=== PATIENT | female | born 1955 | race Caucasian/White ===

== ENCOUNTER → 2016-04-18 | Outpatient (CLI) | payer MEDICARE, OTHER ==
[2016-04-18 16:24] LABS: ALT 31 U/L (9-52); AST 26 U/L (14-36); Alkaline Phosphatase 90 U/L (38-126); Anion Gap 14 mmol/L; Blood Urea Nitrogen 11 mg/dL (7-17); Calcium 9.3 mg/dL (8.4-10.2); Carbon Dioxide 23 mmol/L (22-30); Chloride 103 mmol/L (98-107); Glucose 92 mg/dL (74-99); Non-African American GFR(MDRD) >60 (>60 ml/min/1.73 sqM); Potassium 3.8 mmol/L (3.5-5.1); Sodium 140 mmol/L (137-145); Total Bilirubin 0.4 mg/dL (0.2-1.3); Total Protein 6.8 g/dL (6.3-8.2)
== END | disposition home or self-care (01) ==
LOC: LABWHC1 15:20
PROVIDERS: ATTEND Internal Medicine Endocrinology, Diabetes & Metabolism
DX: E21.0 Primary hyperparathyroidism (principal)
CPT/HCPCS: 36415; 80053; 82306; 83970

== ENCOUNTER → 2016-05-17 | Outpatient (CLI) | payer MEDICARE, OTHER ==
--- NOTE | 2016-05-17 16:27 | XR ---
EXAMINATION TYPE: XR hand complete bilateral DATE OF EXAM: 05/17/2016 4:15 PM CLINICAL HISTORY: Bilateral hand pain TECHNIQUE: Frontal, lateral and oblique images of the bilateral hands are obtained. COMPARISON: None. FINDINGS: [place] osseous structures are demineralized. There is no acute fracture/dislocation eviden t in either hand. There is some mild joint space loss throughout the phalanges bilaterally. No signif icant spurring is seen. The overlying soft tissue appears unremarkable. IMPRESSION: There is demineralization and mild degenerative joint space loss throughout the fingers in both hands.
== END | disposition home or self-care (01) ==
LOC: RADXRMAIN 15:56
PROVIDERS: ATTEND Psychiatry & Neurology Psychiatry
DX: M81.0 Age-related osteoporosis without current pathological fracture (principal); M25.841 Other specified joint disorders, right hand; M25.842 Other specified joint disorders, left hand

== ENCOUNTER → 2016-05-19 | Outpatient (CLI) | payer MEDICARE, OTHER ==
[2016-05-19 13:58] LABS: CH 32.4; HCT 38.3 % (34.0-46.0); HDW 2.69; HGB 12.5 gm/dL (11.4-16.0); MCH 32.3 pg (25.0-35.0); MCHC 32.7 g/dL (31.0-37.0); MCV 98.8 fL (80.0-100.0); Mean Platelet Volume 6.5; RBC 3.88 m/uL (3.80-5.40); RDW 13.9 % (11.5-15.5); WBC 6.2 k/uL (3.8-10.6)
[2016-05-19 14:18] LABS: Anion Gap 12 mmol/L; Blood Urea Nitrogen 15 mg/dL (7-17); Calcium 9.8 mg/dL (8.4-10.2); Carbon Dioxide 24 mmol/L (22-30); Chloride 103 mmol/L (98-107); Glucose 98 mg/dL (74-99); Non-African American GFR(MDRD) 57 (>60 ml/min/1.73 sqM); Potassium 3.8 mmol/L (3.5-5.1); Sodium 139 mmol/L (137-145)
[2016-05-19 14:21] LABS: Rheumatoid Factor, Qnt <9 IU/mL (<12)
[2016-05-19 16:04] LABS: Erythrocyte Sedimentation Rate 5 mm/hr (0-20)
== END | disposition home or self-care (01) ==
LOC: LABWHC1 13:10
PROVIDERS: ATTEND Psychiatry & Neurology Psychiatry
DX: M81.0 Age-related osteoporosis without current pathological fracture (principal); E21.3 Hyperparathyroidism, unspecified; E87.8 Other disorders of electrolyte and fluid balance, not elsewhere classified
CPT/HCPCS: 36415; 80048; 85027; 85652; 86038; 86431

== ENCOUNTER 2016-07-23 15:29 | Observation (INO) | payer MEDICARE ==
[2016-07-23] MEDS ORDERED: SODIUM CHLORIDE 0.9% 1,000 ML IV ONE (15:52)
--- NOTE | 2016-07-23 16:00 | ED ---
General Adult HPI - General Chief complaint: Neuro Symptoms/Deficit Stated complaint: numbness left side Time Seen by Provider: 07/23/16 15:36 Source: patient Mode of arrival: wheelchair Limitations: physical limitation - History of Present Illness Initial comments: This is a 61-year-old female with a history of COPD and major depression with what appears to be alcohol dependence in the past who presents emergency department for generalized fatigue and tremors. The patient states that approximately 3 days ago she had an episode where her left leg gave out and she couldn't walk. She states that the weakness in her left leg progressed to her right leg and she was unable to ambulate for a couple of days. She states that this has improved and she can walk now however she complains now that she has generalized tremors and also feels like she is losing her balance when she is ambulating. She states that she did drink alcohol 3 days ago however has not drank since then. She denies any history of alcohol withdrawal in the past. She denies any chest pain or shortness of breath. No headaches. No numbness or tingling currently. She did state that she has some numbness a few days ago however this has also resolved. She called her primary doctor who advised her to come emergency department because she was concerned for TIAs and strokes. The patient denies any other complaints. - Related Data Home Medications Medication Instructions Recorded Confirmed Topiramate 50 mg PO DAILY 01/09/16 07/23/16 QUEtiapine FUMARATE [SEROquel] 300 mg PO HS 01/20/16 07/23/16 Furosemide [Lasix] 20 mg PO DAILY 01/22/16 07/23/16 ALPRAZolam [Xanax] 0.5 mg PO BID PRN 07/23/16 07/23/16 Desvenlafaxine Succinate [Pristiq] 50 mg PO DAILY 07/23/16 07/23/16 Ergocalciferol [Vitamin D2] 50,000 unit PO Q7D 07/23/16 07/23/16 Allergies Allergy/AdvReac Type Severity Reaction Status Date / Time cortisone Allergy Swelling Verified 07/23/16 15:58 lamotrigine [From Lamictal] Allergy Rash/Hives Verified 07/23/16 15:58 Review of Systems ROS Statement: Those systems with pertinent positive or pertinent negative responses have been documented in the HPI. ROS Other: All systems not noted in ROS Statement are negative. Past Medical History Past Medical History: COPD, GERD/Reflux, Hypertension, Musculoskeletal Disorder , Pneumonia Additional Past Medical History / Comment(s): Osteoporosis, anxiety/depression History of Any Multi-Drug Resistant Organisms: None Reported Past Surgical History: Adenoidectomy, Orthopedic Surgery, Tonsillectomy Additional Past Surgical History / Comment(s): BILATERAL CATARACT SURGERY,RIGHT SHOULDER SX, BILATERAL HIP BURSITIS SX, rhinopasty Past Anesthesia/Blood Transfusion Reactions: No Reported Reaction Past Psychological History: Anxiety, Bipolar, Depression, Panic Disorder Additional Psychological History / Comment(s): MULTIPLE SUICIDAL OD ATTEMPTS SINCE 2012. Smoking Status: Former smoker Past Alcohol Use History: Occasional Additional Past Alcohol Use History / Comment(s): Smoker of 1 ppd for 35 years and quit in May 2015. She denies any medical marijuana or street drug use. She states she drinks alcohol occasionally. She lives at home with her . She does not have CPAP or nebulizer at home. She is currently on disability due to depression and bipolar. Past Drug Use History: None Reported - Past Family History Mother Family Medical History: Congestive Heart Failure (CHF) Additional Family Medical History / Comment(s): Mother at age 84 from old age. Father Family Medical History: Pulmonary Embolus Additional Family Medical History / Comment(s): Father at age 60 from pulmonary embolism. Brother(s) Additional Family Medical History / Comment(s): She has 2 brothers and one has multiple medical problems which she does not know details other than retinal detachment. Sister(s) Additional Family Medical History / Comment(s): She has one sister with history of sinus problems and migraine headaches. Son(s) Additional Family Medical History / Comment(s): She has 2 sons are healthy. General Exam - General Exam Comments Initial Comments: Constitutional: Awake alert Appears comfortable Head: Normocephalic atraumatic Eyes: no conjunctival injection No scleral icterus EOMI Neck: No JVD Supple Heart: Tachycardia normal S1-S2 no murmurs Lungs: Clear to auscultation bilaterally No wheezing No rales Abdomen: Soft nondistended nontender Extremities: Non edematous DP pulses intact Radial pulses intact Neuro: A&Ox3 cranial nerves II through XII are grossly intact, 5 out of 5 strength in upper and lower extremities bilaterally, there is significant tremor with finger to nose testing however no abnormal coordination. Heel-to- lea is normal. I did watch her get up and ambulate and she did have a stumbling gait. She had full sensation in all extremities to light palpation. Psych: Appropriate mood and affect Limitations: physical limitation Course Vital Signs 07/23/16 07/23/16 15:33 16:45 Temperature 97.5 F L Pulse Rate 108 H 85 Respiratory 20 18 Rate Blood Pressure 158/74 153/71 O2 Sat by Pulse 98 96 Oximetry EKG Findings - EKG Comments: EKG Findings:: EKG showing normal sinus rhythm with a rate of 96. No ST segment changes or T-wave inversions. QTC is 459. Other intervals are normal. No ectopy. Medical Decision Making - Medical Decision Making This is a 61-year-old female came into the emergency department for transient left lower extremity paralysis, gait instability, and tremors. She had a completely normal neurologic examination except for some tremoring and mild stuttering in her gait. She had no paralysis in her extremities. CT of the head was negative. Blood work was reviewed and unremarkable. At this time considering that this may have been a TIA patient needs further workup. She may also be suffering from some other type of etiology for her symptoms. She does have a history of EtOH abuse and may be suffering from vitamin deficiency. She was started on thiamine daily. I like to admit her for neurological consultation. I spoke with Dr. Quintanilla who accepts the admission. The patient was updated and agrees. - Lab Data Result diagrams: 07/23/16 16:16 07/23/16 16:16 Lab Results 07/23/16 07/23/16 Range/Units 16:16 16:16 WBC 5.6 (3.8-10.6) k/uL RBC 3.81 (3.80-5.40) m/uL Hgb 12.8 (11.4-16.0) gm/dL Hct 38.5 (34.0-46.0) % MCV 100.9 H (80.0-100.0) fL MCH 33.6 (25.0-35.0) pg MCHC 33.3 (31.0-37.0) g/dL RDW 14.3 (11.5-15.5) % Plt Count 245 (150-450) k/uL Neutrophils % 62 % Lymphocytes % 22 % Monocytes % 9 % Eosinophils % 4 % Basophils % 1 % Neutrophils # 3.5 (1.3-7.7) k/uL Lymphocytes # 1.2 (1.0-4.8) k/uL Monocytes # 0.5 (0-1.0) k/uL Eosinophils # 0.2 (0-0.7) k/uL Basophils # 0.1 (0-0.2) k/uL Macrocytosis Slight Sodium 142 (137-145) mmol/L Potassium 3.1 L (3.5-5.1) mmol/L Chloride 107 (98-107) mmol/L Carbon Dioxide 21 L (22-30) mmol/L Anion Gap 14 mmol/L BUN 9 (7-17) mg/dL Creatinine 0.80 (0.52-1.04) mg/dL Est GFR (MDRD) Af Amer >60 (>60 ml/min/1.73 sqM) Est GFR (MDRD) Non-Af >60 (>60 ml/min/1.73 sqM) Glucose 142 H (74-99) mg/dL Calcium 9.8 (8.4-10.2) mg/dL Total Bilirubin 0.5 (0.2-1.3) mg/dL AST 40 H (14-36) U/L ALT 24 (9-52) U/L Alkaline Phosphatase 86 (38-126) U/L Total Protein 6.5 (6.3-8.2) g/dL Albumin 4.2 (3.5-5.0) g/dL Salicylates <1.0 mg/dL Acetaminophen <10.0 ug/mL Serum Alcohol <10 mg/dL Disposition Clinical Impression: Tremor, Gait abnormality, TIA (transient ischemic attack) Disposition: ADMITTED IP TO THIS [facility] Condition: Stable
[2016-07-23 16:30] LABS: Basophils # (A) 0.1 k/uL (0-0.2); Basophils % (A) 1 %; CH 33.4; CHCM 33.3; Eosinophils # (A) 0.2 k/uL (0-0.7); Eosinophils % (A) 4 %; HCT 38.5 % (34.0-46.0); HGB 12.8 gm/dL (11.4-16.0); Luc # (Auto) 0.21; Luc % (Auto) 4; Lymphocytes # (A) 1.2 k/uL (1.0-4.8); Lymphocytes % (A) 22 %; MCH 33.6 pg (25.0-35.0); MCHC 33.3 g/dL (31.0-37.0); MCV 100.9 fL (80.0-100.0); Macrocytosis Slight; Mean Platelet Volume 6.7; Monocytes # (A) 0.5 k/uL (0-1.0); Monocytes % (A) 9 %; Neutrophils # (A) 3.5 k/uL (1.3-7.7); Neutrophils % (A) 62 %; RBC 3.81 m/uL (3.80-5.40); RDW 14.3 % (11.5-15.5); WBC 5.6 k/uL (3.8-10.6); WBC (Perox) 5.93
[2016-07-23 16:48] LABS: ALT 24 U/L (9-52); AST 40 U/L (14-36); Acetaminophen <10.0 ug/mL; Alcohol <10 mg/dL; Alkaline Phosphatase 86 U/L (38-126); Anion Gap 14 mmol/L; Blood Urea Nitrogen 9 mg/dL (7-17); Calcium 9.8 mg/dL (8.4-10.2); Carbon Dioxide 21 mmol/L (22-30); Chloride 107 mmol/L (98-107); Glucose 142 mg/dL (74-99); Non-African American GFR(MDRD) >60 (>60 ml/min/1.73 sqM); Potassium 3.1 mmol/L (3.5-5.1); Salicylate <1.0 mg/dL; Sodium 142 mmol/L (137-145); Total Bilirubin 0.5 mg/dL (0.2-1.3); Total Protein 6.5 g/dL (6.3-8.2)
[2016-07-23] MEDS ORDERED: POTASSIUM CHLORIDE ER 20 MEQ TAB.ER PO STA (16:53)
--- NOTE | 2016-07-23 17:17 | CT ---
EXAMINATION TYPE: CT brain wo con DATE OF EXAM: 07/23/2016 4:53 PM COMPARISON: 02/26/2016 INDICATION: Pain DLP: 980.90 mGycm, Automated exposure control for dose reduction was used. CONTRAST: None CT of the brain is performed utilizing 3 mm thick sections through the posterior fossa and 3 mm thick sections through the remaining calvarium. Study is performed within 24 hours of arrival to the hosp [facility]. No abnormal hyperdensity is present to suggest an acute intracranial hemorrhage. No mass lesion is evident. No acute infarcts are evident. Ventricles and sulci are appropriate for the patient age. Paranasal sinuses and mastoid air cells within the [id number] are clear. IMPRESSIONS: 1. Normal CT Brain
[2016-07-23] MEDS ORDERED: ASPIRIN 325 MG TAB PO STA (17:18)
--- NOTE | 2016-07-23 17:35 | XR ---
EXAMINATION TYPE: XR chest 2V DATE OF EXAM: 07/23/2016 5:31 PM COMPARISON: NONE INDICATION: Pain TECHNIQUE: 2 view chest. FINDINGS: The heart size is normal. The pulmonary vasculature is normal. The lungs are clear. IMPRESSION: 1. No acute pulmonary process.
[2016-07-23 17:53] LABS: Vitamin B12 766 pg/mL (239-931)
[2016-07-23] MEDS: THIAMINE 100 MG/ML 2 ML VIAL IVP SCH (17:54)
[2016-07-23 17:58] LABS: Appearance,Urine Clear (Clear); Bilirubin,Urine Negative (Negative); Glucose,Urine (UA) Negative (Negative); Ketones,Urine Negative (Negative); Leukocyte Esterase,Urine Trace (Negative); Nitrite,Urine Negative (Negative); PH, Urine 6.5 (5.0-8.0); Particle Count 634; Protein,Urine Negative (Negative); Specific Gravity,Urine 1.001 (1.001-1.035); Squamous Epithelial Cell,Urine <1 /hpf (0-4); UA Billing (MACRO vs. MICRO) MICRO; Urobilinogen,Urine <2.0 mg/dL (<2.0); WBC,Urine <1 /hpf (0-5)
[2016-07-23 18:26] VITALS: BMI 22.4
[2016-07-23] MEDS: ALPRAZolam 0.5 MG TAB PO PRN (20:25)
[2016-07-23] MEDS: QUEtiapine 100 MG TAB PO SCH (20:25)
[2016-07-23 20:52] LABS: Cholesterol 200 mg/dL (<200); HDL Cholesterol 103 mg/dL (40-60); Triglycerides 73 mg/dL (<150)
--- NOTE | 2016-07-23 21:26 | P.CNNES ---
History of Present Illness Consult date: 07/23/16 Reason for Consult: Patient admitted with TIA symptoms. History of Present Illness: This patient is a 61-year-old right-handed white female who was admitted to hospital for evaluation of leg weakness. According to the and daughter the patient has been having increase episodes of weakness and tremulousness. She has a history of significant alcohol abuse in the past. According to the daughter who was admitted to she has been drinking heavily last week. Apparently she was at home and was having difficulty with weakness in the legs. She was complaining of her left leg giving out. She was brought into the emergency room for further evaluation. She is being monitored for possibility of alcohol withdrawal syndrome. She does have some intermittent tremors in the hands. Apparently this is been a fairly recent onset. According to the daughter she states her mother does not admit to her drinking problem. She has been drinking heavily recently. This could also be a cause of her weakness as well as the tremors. She was seen in the emergency room by Dr. Bright. A computed tomography scan of the brain was ordered. CAT scan came back negative for any acute stroke or hemorrhage. According to the daughter she has noted a decline in her mother's memory as well. This may also be alcohol related. Patient apparently has been treated for anxiety disorder and had been taking Xanax up until a month ago when her dose of Xanax was reduced. She is now being closely monitored by her new primary care physician. Because of the leg weakness she is now been admitted for possibility of TIA. Patient denies any previous history of TIA or stroke. She states her serum cholesterol has been elevated in the past. Neurology is now been consulted for further evaluation and recommendations. Review of Systems Constitutional: Denies chills, Denies fever Eyes: denies blurred vision, denies pain Ears, nose, mouth and throat: Denies headache, Denies sore throat Cardiovascular: Denies chest pain, Denies shortness of breath Respiratory: Denies cough Gastrointestinal: Denies abdominal pain, Denies diarrhea, Denies nausea, Denies vomiting Genitourinary: Denies dysuria, Denies hematuria Musculoskeletal: Denies myalgias Integumentary: Denies pruritus, Denies rash Neurological: Reports ataxia, Reports change in mentation, Reports confusion, Reports gait dysfunction, Reports memory loss, Reports tremors, Denies numbness , Denies weakness Psychiatric: Denies anxiety, Denies depression Endocrine: Denies fatigue, Denies weight change Past Medical History Past Medical History: COPD, GERD/Reflux, Hypertension, Musculoskeletal Disorder , Pneumonia Additional Past Medical History / Comment(s): Osteoporosis, anxiety/depression History of Any Multi-Drug Resistant Organisms: None Reported Past Surgical History: Adenoidectomy, Orthopedic Surgery, Tonsillectomy Additional Past Surgical History / Comment(s): BILATERAL CATARACT SURGERY,RIGHT SHOULDER SX, BILATERAL HIP BURSITIS SX, rhinopasty Past Anesthesia/Blood Transfusion Reactions: No Reported Reaction Past Psychological History: Anxiety, Bipolar, Depression, Panic Disorder Additional Psychological History / Comment(s): MULTIPLE SUICIDAL OD ATTEMPTS SINCE 2012. Smoking Status: Former smoker Past Alcohol Use History: Occasional Additional Past Alcohol Use History / Comment(s): Smoker of 1 ppd for 35 years and quit in May 2015. She denies any medical marijuana or street drug use. She states she drinks alcohol occasionally. She lives at home with her . She does not have CPAP or nebulizer at home. She is currently on disability due to depression and bipolar. Past Drug Use History: None Reported - Past Family History Mother Family Medical History: Congestive Heart Failure (CHF) Additional Family Medical History / Comment(s): Mother at age 84 from old age. Father Family Medical History: Pulmonary Embolus Additional Family Medical History / Comment(s): Father at age 60 from pulmonary embolism. Brother(s) Additional Family Medical History / Comment(s): She has 2 brothers and one has multiple medical problems which she does not know details other than retinal detachment. Sister(s) Additional Family Medical History / Comment(s): She has one sister with history of sinus problems and migraine headaches. Son(s) Additional Family Medical History / Comment(s): She has 2 sons are healthy. Medications and Allergies Home Medications Medication Instructions Recorded Confirmed Type Topiramate 50 mg PO DAILY 01/09/16 07/23/16 History QUEtiapine FUMARATE [SEROquel] 300 mg PO HS 01/20/16 07/23/16 History Furosemide [Lasix] 20 mg PO DAILY 01/22/16 07/23/16 History ALPRAZolam [Xanax] 0.5 mg PO BID PRN 07/23/16 07/23/16 History Desvenlafaxine Succinate [Pristiq] 50 mg PO DAILY 07/23/16 07/23/16 History Ergocalciferol [Vitamin D2] 50,000 unit PO Q7D 07/23/16 07/23/16 History Allergies Allergy/AdvReac Type Severity Reaction Status Date / Time cortisone Allergy Swelling Verified 07/23/16 15:58 lamotrigine [From Lamictal] Allergy Rash/Hives Verified 07/23/16 15:58 Physical Examination - Vital Signs Vital Signs: Vital Signs Temp Pulse Pulse Resp BP BP Pulse Ox 07/23/16 19:17 98.0 F 90 18 130/70 95 07/23/16 18:18 98.4 F 88 16 126/74 95 07/23/16 17:50 97.7 F 88 20 125/75 98 07/23/16 17:39 98.4 F 88 18 126/74 95 Intake and Output 07/23/16 07/23/16 07/23/16 06:59 14:59 22:59 Other: # Voids 1 Weight 52.1 kg Patient Weight 07/24/16 06:59 Weight 52.1 kg - Constitutional General appearance: average body habitus, cooperative - EENT EENT: PERRL, mucous membranes moist - Respiratory Respiratory: lungs clear, normal breath sounds - Cardiovascular Cardiovascular: regular rate, normal S1, normal S2 Extremities: no peripheral edema bilaterally - Gastrointestinal Gastrointestinal: normoactive bowel sounds - Integumentary Integumentary: normal - Neurologic Cranial nerve examination: PERRL, EOMI, V1/V2/V3 grossly intact, face symmetric , tongue midline, intact gag reflex, intact corneal reflex, normal palatal elevation Speech examination: intact Sensorimotor examination: intact Motor examination - right side: 4/5: biceps, triceps, wrist flexion, wrist extension, estimation manager, hip flexors, knee extensors, dorsiflexion, toe extension (EHL) , plantarflexion Motor examination - left side: 4/5: biceps, triceps, wrist flexion, wrist extension, estimation manager, hip flexors, knee extensors, dorsiflexion, toe extension (EHL) , plantarflexion Detailed sensory examination: intact Reflex and gait examination: intact Reflexes: 1+: ankle, bicep, knee, tricep - Musculoskeletal Musculoskeletal: no pain - Psychiatric Psychiatric: mood/affect appropriate, cooperative Results - Laboratory Findings CBC and BMP: 04/09/17 16:16 07/23/16 16:16 Abnormal Lab Findings: Abnormal Labs 07/23/16 07/23/16 17:30 17:45 Ur Leukocyte Esterase Trace H U Tricyclic Antidepress Detected H U Benzodiazepines Scrn Detected H Assessment and Plan (1) TIA (transient ischemic attack) Status: Acute Code(s): G45.9 - TRANSIENT CEREBRAL ISCHEMIC ATTACK, UNSPECIFIED (2) Benign essential tremor Status: Acute Code(s): G25.0 - ESSENTIAL TREMOR (3) Gait abnormality Status: Acute Code(s): R26.9 - UNSPECIFIED ABNORMALITIES OF GAIT AND MOBILITY (4) Alcohol intoxication Status: Acute Code(s): F10.129 - ALCOHOL ABUSE WITH INTOXICATION, UNSPECIFIED (5) Depression Status: Acute Code(s): F32.9 - MAJOR DEPRESSIVE DISORDER, SINGLE EPISODE, UNSPECIFIED Plan: This patient is a 61-year-old female who apparently has a history of alcohol abuse. Since been ongoing over the last many years. According to the daughter who provided some medical history her mother is been drinking heavily in the last 2 weeks. She was brought into the emergency room where she was complaining of leg weakness. Apparently she could not walk a few days ago and this is since resolved. She still complains of some left leg weakness on and off. She was admitted to the hospital for possibility of TIA. She is also being monitored for possibility of alcohol withdrawal syndrome. He shouldn't states she has no previous history of TIA or stroke. She is not a very good historian. The daughter provides some more accurate history for the patient today. Currently the daughter states she has a history of severe alcoholism does drink heavily. She denies any previous history of delirium tremens. She was seen in the ER by Dr. Bright who ordered a CAT scan of the brain which was reported normal. Patient will undergo a complete stroke evaluation. She states she does have a history of elevated cholesterol in the past. She should be closely monitored for early delirium tremens as well. Overall prognosis at this time remains very guarded. We will continue close neurological follow-up with this patient during this admission. Time with Patient: Greater than 30
[2016-07-24 06:57] LABS: Cholesterol 164 mg/dL (<200); HDL Cholesterol 84 mg/dL (40-60); Triglycerides 60 mg/dL (<150)
--- NOTE | 2016-07-24 08:35 | US ---
EXAMINATION TYPE: US carotid duplex BILAT DATE OF EXAM: 07/24/2016 8:06 AM COMPARISON: NONE CLINICAL HISTORY: Stenosis. TIA EXAM MEASUREMENTS: RIGHT: Peak Systolic Velocity (PSV) cm/sec ----- Right CCA: 98.7 ----- Right ICA: 129.9 ----- Right ECA: 106.4 ICA/CCA ratio: 1.3 RIGHT: End Diastole cm/sec ----- Right CCA: 47.8 ----- Right ICA: 43.2 ----- Right ECA: 19.2 LEFT: Peak Systolic Velocity (PSV) cm/sec ----- Left CCA: 93.8 ----- Left ICA: 110.2 ----- Left ECA: 111.3 ICA/CCA ratio: 1.2 LEFT: End Diastole cm/sec ----- Left CCA: 34.2 ----- Left ICA: 41.2 ----- Left ECA: 20.8 VERTEBRALS (direction of flow): Right Vertebral: Antegrade Left Vertebral: Antegrade Calcified plaque bilateral bulbs and ICA's IMPRESSION: 1. Moderate stenosis between 50 and 69% right internal carotid artery. 2. Mild stenosis of less than 50% left internal carotid artery. Criteria for Assigning % of Stenosis / Diameter reduction (Estimation based on the indirect measurements of the internal carotid artery velocities (ICA PSV). 1. Normal (no stenosis)=ICA PSV < 125 cm/s: ratio < 2.0: ICA EDV<40 cm/s. 2. Less than 50% stenosis=ICA PSV < 125 cm/s: ratio < 2.0: ICA EDV<40 cm/s. 3. 50 to 69% stenosis=ICA PSV of 125 to 230 cm/s: ration 2.0 ? 4.0: ICA EDV 40-100 cm/s. 4. Greater than 70% stenosis to near occlusion= ICA PSV > 230 cm/s: ratio > 4.0: ICA EDV > 100 cm/s. 5. Near occlusion= ICA PSV velocities may be low or undetectable: variable ratio and ICA EDV. 6. Total occlusion=unable to detect flow.
[2016-07-24] MEDS: THIAMINE 100 MG/ML 2 ML VIAL IVP SCH (09:00)
[2016-07-24] MEDS: ASPIRIN 325 MG TAB PO SCH (09:40)
[2016-07-24] MEDS: TOPIRAMATE 25 MG TAB PO SCH (09:40)
[2016-07-24] MEDS: DESVENLAFAXINE SUCCINATE 50 MG TAB.ER.24H PO SCH (09:40)
[2016-07-24] MEDS: ALPRAZolam 0.5 MG TAB PO PRN ×2 (09:46→19:49)
[2016-07-24] MEDS: LORazepam 0.5 MG TAB PO PRN ×2 (12:34→16:36)
[2016-07-24] MEDS ORDERED: ALPRAZOLAM 0.5 MG PO PRN (14:07)
[2016-07-24 14:43] LABS: Basophils % (A) 1 %; CH 33.2; CHCM 31.7; Eosinophils # (A) 0.2 k/uL (0-0.7); Eosinophils % (A) 6 %; HCT 35.9 % (34.0-46.0); HDW 2.64; HGB 11.4 gm/dL (11.4-16.0); Luc # (Auto) 0.11; Luc % (Auto) 3; Lymphocytes % (A) 29 %; MCH 33.6 pg (25.0-35.0); MCHC 31.8 g/dL (31.0-37.0); MCV 105.5 fL (80.0-100.0); Macrocytosis Moderate; Mean Platelet Volume 7.6; Monocytes # (A) 0.4 k/uL (0-1.0); Monocytes % (A) 12 %; Neutrophils # (A) 1.7 k/uL (1.3-7.7); Neutrophils % (A) 49 %; RDW 14.8 % (11.5-15.5); WBC 3.5 k/uL (3.8-10.6); WBC (Perox) 3.68
[2016-07-24 14:48] LABS: Anion Gap 6 mmol/L; Blood Urea Nitrogen 8 mg/dL (7-17); Carbon Dioxide 23 mmol/L (22-30); Chloride 114 mmol/L (98-107); Glucose 96 mg/dL (74-99); Non-African American GFR(MDRD) >60 (>60 ml/min/1.73 sqM); Potassium 3.6 mmol/L (3.5-5.1); Sodium 143 mmol/L (137-145)
[2016-07-24 15:00] LABS: Vitamin B12 655 pg/mL (239-931)
[2016-07-24] MEDS: POTASSIUM CHLORIDE ER 20 MEQ TAB.ER PO SCH ×2 (16:37→19:49)
[2016-07-24] MEDS: QUEtiapine 100 MG TAB PO SCH (19:49)
--- NOTE | 2016-07-24 19:51 | HP ---
DATE OF ADMISSION: 07/23/2016 CHIEF COMPLAINT: Numbness and weakness of the left side. HISTORY OF PRESENT ILLNESS: This 61-year-old woman with a past medical history of multiple medical problems including COPD, History of GERD, history of hypertension, history of degenerative joint disease, osteoporosis, adenoidectomy, history of bilateral cataracts, anxiety, bipolar depression, panic disorder, history of multiple suicide attempts, attempts since [address] Laura Milan in the outpatient setting, was living at home with . The patient had weakness of the left side about a couple of days ago. Subsequently because of increasing weakness and numbness and some tremors, the patient came to [facility] and admitted to the hospital for further evaluation and treatment after primary care physician's recommendations. The patient also has difficulty walking, but all symptoms of weakness probably improved even prior to coming to the hospital according to her. There is no history of fever, rigors or chills. According to the chart, the patient drank alcohol about 3 days ago. Patient drinks about 4 times a week according to her. Past medical history of COPD, GERD, hypertension, history of musculoskeletal disorder, history of adenoidectomy, DJD, anxiety, bipolar depression. Medications prior to admission include home medications are: 1. Seroquel 300 mg q.h.s. 2. Vitamin D2 50,000 q7 days. 3. Pristiq 50 mg p.o. daily. 4. Xanax 0.5 b.i.d. p.r.n. 5. Topamax 50 mg daily. 6. Lasix 20 mg p.o. daily. ALLERGIES: CORTISONE AND LAMICTAL. FAMILY HISTORY: History of congestive heart failure in the family and mother. SOCIAL HISTORY: History of alcohol occasionally according to the patient and history of nicotine dependence. REVIEW OF SYSTEMS: ENT: No diminishing hearing. No diminished vision. CARDIOVASCULAR: No angina or palpitations. RESPIRATORY: As mentioned earlier. No cough. No hemoptysis. GI: No nausea. : No dysuria. Nervous system: As mentioned earlier. ALLERGY/IMMUNOLOGY: No asthma or hayfever. MUSCULOSKELETAL: As mentioned earlier. HEMATOLOGY/ONCOLOGY: No history of anemia. ENDOCRINE: No history of diabetes or hypothyroidism. CONSTITUTIONAL: as mentioned earlier. DERMATOLOGY: Negative. Rheumatology: Negative. PSYCHIATRY: As mentioned earlier. PHYSICAL EXAMINATION: The patient is alert and oriented times three. Pulse 91. Blood pressure 115/57, respirations 16, temperature 99 degrees, pulse ox 94% on room air. HEENT: Conjunctivae normal. Oral mucosa moist. NECK: No jugular venous distention. No carotid bruit. No lymph node enlargement. CARDIOVASCULAR: S1, S2 muffled. No S3, no S4. RESPIRATORY: Breath sounds diminished at the bases. A few scattered rhonchi, no crackles. ABDOMEN: Soft, nontender. No mass palpable. Legs: No edema. No swelling. Nervous system: Higher function as mentioned earlier. Minimal weakness on the left side. Otherwise, diffuse tremors intentional. Gait dysfunction also present. diminished. No nystagmus. No diplopia. Cranial nerves. SKIN: No ulcer, rash or bleeding. LYMPHATICS: No lymph nodes palpable in the neck, axilla or groin. JOINTS: No active deforming arthropathy. Labs are noted sodium 142, potassium 3.1. The cholesterol is 200. ASSESSMENT: 1. Weakness left side of the body possible acute cerebrovascular accident. 2. Significant tremors and anxiety and panic attacks. 3. Increased MCV. 4. Hypokalemia. 5. Increased random blood sugar. 6. Increased AST. 7. History of hypertension. 8. History of gastroesophageal reflux disease. 9. History of chronic obstructive pulmonary disease. 10. History of pneumonia. 12. Anxiety, depression, bipolar, panic disorder not otherwise specified. 13. Bilateral cataracts. 14. Remote history of nicotine dependence. 15. Possible moderate stenosis 50-69% of the right and mild stenosis of the . RECOMMENDATIONS AND DISCUSSION: In this 61-year-old woman who presented with multiple complex medical issues, we will monitor the patient closely, continue the current medications, continue symptomatic treatment. I would recommend antiplatelet agents. Monitor blood pressure closely and complete neurovascular work-up, Lipitor, neurology consultation. Ultrasound of the neck was noted. I would also recommend a vascular surgery consultation. Guarded prognosis. Further recommendations to follow. MTDD
[2016-07-24] MEDS: THIAMINE 100 MG in SODIUM CHLORIDE 0.9% 100 ML IVPB SCH (21:24)
[2016-07-25] MEDS: LORazepam 0.5 MG TAB PO PRN ×3 (06:28→14:59)
[2016-07-25 07:31] LABS: Basophils # (A) 0.1 k/uL (0-0.2); Basophils % (A) 1 %; CH 33.4; CHCM 32.2; Eosinophils # (A) 0.3 k/uL (0-0.7); Eosinophils % (A) 7 %; HCT 36.8 % (34.0-46.0); HDW 2.57; HGB 11.7 gm/dL (11.4-16.0); Luc # (Auto) 0.16; Luc % (Auto) 4; Lymphocytes # (A) 1.3 k/uL (1.0-4.8); Lymphocytes % (A) 29 %; MCH 33.3 pg (25.0-35.0); MCHC 31.8 g/dL (31.0-37.0); MCV 104.6 fL (80.0-100.0); Macrocytosis Moderate; Mean Platelet Volume 7.2; Monocytes # (A) 0.4 k/uL (0-1.0); Monocytes % (A) 8 %; Neutrophils # (A) 2.4 k/uL (1.3-7.7); Neutrophils % (A) 52 %; RBC 3.52 m/uL (3.80-5.40); RDW 14.7 % (11.5-15.5); WBC 4.6 k/uL (3.8-10.6); WBC (Perox) 4.23
[2016-07-25 07:43] LABS: Anion Gap 9 mmol/L; Blood Urea Nitrogen 12 mg/dL (7-17); Carbon Dioxide 19 mmol/L (22-30); Chloride 114 mmol/L (98-107); Glucose 89 mg/dL (74-99); Non-African American GFR(MDRD) >60 (>60 ml/min/1.73 sqM); Potassium 4.7 mmol/L (3.5-5.1); Sodium 142 mmol/L (137-145)
[2016-07-25] MEDS ORDERED: FUROSEMIDE 20 MG TAB PO SCH (09:00)
--- NOTE | 2016-07-25 10:14 | MR ---
EXAMINATION TYPE: MR brain wo/w con DATE OF EXAM: 07/25/2016 10:03 AM COMPARISON: NONE HISTORY: Stroke CONTRAST: Patient received 10 mL intravenous MultiHance gadolinium contrast. Multiplanar and multispin-echo imaging of the brain was performed . Pre and post contrast enhanced i mages are obtained. The ventricles, basal cisterns and sulci overlying the cerebral convexities are mildly enlarged. There is evidence of minimal periventricular white matter ischemic demyelination. Remote deep white matter insults are also noted. No acute edema is seen on diffusion weighted imaging. There is no evidence for midline shift or mass effect. Acute intracranial hemorrhage or extra-axial collection is not evident. No enhancing lesions are seen. The paranasal sinuses and mastoid air cells are well-aerated. IMPRESSION: Age-related atrophic and chronic small vessel ischemic change. No acute intracranial process at this time. No enhancing lesions are seen.
[2016-07-25 10:58] VITALS: TEMP 97.3
[2016-07-25] MEDS: TOPIRAMATE 25 MG TAB PO SCH (10:58)
[2016-07-25] MEDS: ASPIRIN 325 MG TAB PO SCH (10:58)
[2016-07-25] MEDS: DESVENLAFAXINE SUCCINATE 50 MG TAB.ER.24H PO SCH (10:58)
[2016-07-25] MEDS ORDERED: ERGOCALCIFEROL 50,000 UNIT CAP PO SCH (12:00)
[2016-07-25] MEDS: THIAMINE 100 MG in SODIUM CHLORIDE 0.9% 100 ML IVPB SCH (12:07)
[2016-07-25] MEDS ORDERED: RX INFO: IV CONTRAST WAS GIVEN 1 EACH MISC MISCELLANE PRN (12:25)
--- NOTE | 2016-07-25 12:31 | P.GSCN ---
History of Present Illness Consult date: 07/25/16 Reason for Consult: Right carotid stenosis and left hemiparesis Requesting physician: Kait Johns History of present illness: This 61-year-old woman states that prior to her admission she had an episode of left hemiparesis is affecting the left arm and leg. She states it lasted for about 48 hours before it resolved. She feels still somewhat weak in general but with no specific focal weakness. She quit smoking a year ago. She drinks sometimes to excess. There is some question as to the exact amount. Review of Systems All systems: negative - Constitutional Denies fever, Denies weight loss - EENT Eyes: denies blurred vision Ears, nose, mouth and throat: Denies dysphagia - Cardiovascular Denies chest pain, Denies claudication, Denies decreased exercise tolerance, Denies dyspnea on exertion, Denies orthopnea, Denies paroxysmal nocturnal dyspnea, Denies shortness of breath - Respiratory Denies cough, Denies cough with sputum, Denies hemoptysis - Gastrointestinal Reports as per HPI - Genitourinary Genitourinary: Denies dysuria, Denies hematuria - Integumentary Denies rash, Denies unusual bruising - Neurological Neurologic Comment(s): Patient had a 48 hour episode of left hemiparesis Denies convulsions, Denies headaches, Denies syncope, Denies transient paralysis , Denies tremors - Psychiatric Reports depression - Hematologic/Lymphatic Denies easy bleeding, Denies easy bruising, Denies lymphedema - Allergic/Immunologic Denies allergic rhinitis, Denies angioedema, Denies urticaria Past Medical History Past Medical History: COPD, GERD/Reflux, Hypertension, Musculoskeletal Disorder , Pneumonia Additional Past Medical History / Comment(s): Osteoporosis, anxiety/depression History of Any Multi-Drug Resistant Organisms: None Reported Past Surgical History: Adenoidectomy, Orthopedic Surgery, Tonsillectomy Additional Past Surgical History / Comment(s): BILATERAL CATARACT SURGERY,RIGHT SHOULDER SX, BILATERAL HIP BURSITIS SX, rhinopasty Past Anesthesia/Blood Transfusion Reactions: No Reported Reaction Past Psychological History: Anxiety, Bipolar, Depression, Panic Disorder Additional Psychological History / Comment(s): MULTIPLE SUICIDAL OD ATTEMPTS SINCE 2012. Smoking Status: Former smoker Past Alcohol Use History: Occasional Additional Past Alcohol Use History / Comment(s): Smoker of 1 ppd for 35 years and quit in May 2015. She denies any medical marijuana or street drug use. She states she drinks alcohol occasionally. She lives at home with her . She does not have CPAP or nebulizer at home. She is currently on disability due to depression and bipolar. Past Drug Use History: None Reported - Past Family History Mother Family Medical History: Congestive Heart Failure (CHF) Additional Family Medical History / Comment(s): Mother at age 84 from old age. Father Family Medical History: Pulmonary Embolus Additional Family Medical History / Comment(s): Father at age 60 from pulmonary embolism. Brother(s) Additional Family Medical History / Comment(s): She has 2 brothers and one has multiple medical problems which she does not know details other than retinal detachment. Sister(s) Additional Family Medical History / Comment(s): She has one sister with history of sinus problems and migraine headaches. Son(s) Additional Family Medical History / Comment(s): She has 2 sons are healthy. Medications and Allergies Home Medications Medication Instructions Recorded Confirmed Type Topiramate 50 mg PO DAILY 01/09/16 07/23/16 History QUEtiapine FUMARATE [SEROquel] 300 mg PO HS 01/20/16 07/23/16 History Furosemide [Lasix] 20 mg PO DAILY 01/22/16 07/23/16 History Desvenlafaxine Succinate [Pristiq] 50 mg PO DAILY 07/23/16 07/23/16 History Ergocalciferol [Vitamin D2 50,000 unit PO Q7D 07/23/16 07/23/16 History (DRISDOL)] Allergies Allergy/AdvReac Type Severity Reaction Status Date / Time cortisone Allergy Swelling Verified 07/23/16 15:58 lamotrigine [From Lamictal] Allergy Rash/Hives Verified 07/23/16 15:58 Surgical - Exam Osteopathic Statement: *. No significant issues noted on an osteopathic structural exam other than those noted in the History and Physical/Consult. Vital Signs Temp Pulse Resp BP Pulse Ox 97.5 F L 108 H 20 158/74 98 07/23/16 15:33 07/23/16 15:33 07/23/16 15:33 07/23/16 15:33 07/23/16 15:33 - General well developed, well nourished, no distress - Eyes normal ocular movement, no icteric - ENT no hearing loss, no congestion - Neck no masses, no bruits, trachea midline - Respiratory normal expansion, normal respiratory effort, clear to auscultation - Cardiovascular Rhythm: regular - Abdomen Abdomen: soft, non tender, no guarding, no rigid, no rebound - Integumentary no rash, no abnormal pigmentation - Neurologic no disoriented, no combative - Musculoskeletal normal gait, normal posture - Psychiatric oriented to time, oriented to person, oriented to place, speech is normal, memory intact Results - Labs 07/25/16 06:25 07/25/16 06:25 Abnormal Lab Results - Last 24 Hours (Table) 07/24/16 07/24/16 07/24/16 Range/Units 06:20 06:20 06:26 WBC 3.5 L (3.8-10.6) k/uL RBC 3.40 L (3.80-5.40) m/uL MCV 105.5 H (80.0-100.0) fL Chloride 114 H (98-107) mmol/L Carbon Dioxide (22-30) mmol/L HDL Cholesterol 84 H (40-60) mg/dL 07/25/16 07/25/16 Range/Units 06:25 06:25 WBC (3.8-10.6) k/uL RBC 3.52 L (3.80-5.40) m/uL MCV 104.6 H (80.0-100.0) fL Chloride 114 H (98-107) mmol/L Carbon Dioxide 19 L (22-30) mmol/L HDL Cholesterol (40-60) mg/dL Diabetes panel 07/24/16 07/24/16 07/25/16 Range/Units 06:20 06:26 06:25 Sodium 143 142 (137-145) mmol/L Potassium 3.6 4.7 (3.5-5.1) mmol/L Chloride 114 H 114 H (98-107) mmol/L Carbon Dioxide 23 19 L (22-30) mmol/L BUN 8 12 (7-17) mg/dL Creatinine 0.88 0.87 (0.52-1.04) mg/dL Glucose 96 89 (74-99) mg/dL Calcium 9.0 9.0 (8.4-10.2) mg/dL Triglycerides 60 (<150) mg/dL HDL Cholesterol 84 H (40-60) mg/dL Calcium panel 07/24/16 07/25/16 Range/Units 06:20 06:25 Calcium 9.0 9.0 (8.4-10.2) mg/dL Pituitary panel 07/24/16 07/25/16 Range/Units 06:20 06:25 Sodium 143 142 (137-145) mmol/L Potassium 3.6 4.7 (3.5-5.1) mmol/L Chloride 114 H 114 H (98-107) mmol/L Carbon Dioxide 23 19 L (22-30) mmol/L BUN 8 12 (7-17) mg/dL Creatinine 0.88 0.87 (0.52-1.04) mg/dL Glucose 96 89 (74-99) mg/dL Calcium 9.0 9.0 (8.4-10.2) mg/dL Adrenal panel 07/24/16 07/25/16 Range/Units 06:20 06:25 Sodium 143 142 (137-145) mmol/L Potassium 3.6 4.7 (3.5-5.1) mmol/L Chloride 114 H 114 H (98-107) mmol/L Carbon Dioxide 23 19 L (22-30) mmol/L BUN 8 12 (7-17) mg/dL Creatinine 0.88 0.87 (0.52-1.04) mg/dL Glucose 96 89 (74-99) mg/dL Calcium 9.0 9.0 (8.4-10.2) mg/dL - Imaging Additional studies: CT of the brain and MRI of the brain show no acute changes. Carotid duplex suggests 16-49% left ICA stenosis and 50-69% right ICA stenosis. Velocities suggest barely 50%. Assessment and Plan (1) Carotid stenosis, symptomatic w/o infarct Status: Acute Plan: Symptoms are highly suspicious for a transient ischemic affect. It is odd to have a prolonged episode of deficit with a negative MRI. Carotid duplex is generally fairly sensitive. However, in view of the prolonged profound left hemiparesis, I would recommend a CT angiogram of the carotids. If it does not show a lesion approaching 70%, I would recommend medical therapy with antiplatelet and lipid agents. If we find an none expectedly high grade right carotid lesion we will address it during this admission. Otherwise I would be happy to see her in the office in a couple of weeks. I did discuss with her the limitations of our treatments and have reminded her that regardless of our actions her risk for stroke is never 0. We would simply try to place her in the lowest risk category possible.
--- NOTE | 2016-07-25 13:27 | ECHOF ---
Referral Reason:Stroke MEASUREMENTS -------- HEIGHT: 154.9 cm WEIGHT: 51.3 kg BP: 115/57 IVSd: 0.7 cm (0.6 - 1.1) LVIDd: 3.5 cm (3.9 - 5.3) LVPWd: 1.0 cm (0.6 - 1.1) IVSs: 1.0 cm LVIDs: 2.3 cm LVPWs: 1.2 cm Ao Diam: 2.7 cm (2.0 - 3.7) AV Cusp: 1.6 cm (1.5 - 2.6) LA Diam: 2.2 cm (2.7 - 3.8) MV EXCURSION: 13.059 mm (> 18.000) MV EF SLOPE: 76 mm/s (70 - 150) EPSS: 1.1 cm MV E Davonte: 0.99 m/s MV DecT: 190 ms MV A Dav[place]: 0.91 m/s MV E/A Ratio: 1.10 RAP: 5.00 mmHg RVSP: 18.21 mmHg FINDINGS -------- Sinus rhythm. This was a technically good study. Left ventricular wall thickness is normal. Overall left ventricular systolic function is normal with, an EF between 55 - 60 %. The right ventricle is normal in size. The left atrium is normal in size. The right atrium is normal in size. The aortic valve is trileaflet, and appears structurally normal. No aortic stenosis or regurgitation. The mitral valve leaflets are mildly thickened. There is trace mitral regurgitation. Trace tricuspid regurgitation present. The right ventricular systolic pressure, as measured by Doppler, is 18.21mmHg. Pulmonic valve appears structurally normal. The aortic root size is normal. The pericardium is normal. CONCLUSIONS -------- 1. Sinus rhythm. 2. There is trace mitral regurgitation. 3. Trace tricuspid regurgitation present. 4. The right ventricular systolic pressure, as measured by Doppler, is 18.21mmHg. 5. Pulmonic valve appears structurally normal. 6. The aortic root size is normal. 7. The pericardium is normal. 8. This was a technically good study. 9. Left ventricular wall thickness is normal. 10. Overall left ventricular systolic function is normal with, an EF between 55 - 60 %. 11. The right ventricle is normal in size. 12. The left atrium is normal in size. 13. The right atrium is normal in size. 14. The aortic valve is trileaflet, and appears structurally normal. No aortic stenosis or regurgitation. 15. The mitral valve leaflets are mildly thickened. [facility] PARAMEDIC: Dulce Wilson RDCS
[2016-07-25 15:11] VITALS: PULSE 93; RESP 16
--- NOTE | 2016-07-25 16:06 | CT ---
EXAMINATION TYPE: CT angio head neck DATE OF EXAM: 07/25/2016 4:02 PM COMPARISON: NONE HISTORY: carotid stenosis CT DLP: 264.0 mGycm CONTRAST: Performed with IV Contrast, patient injected with 65 mL of Omnipaque 350. Combination Contrast CTA cervical carotids and [place] CTA cervical carotids with 3-D recons truction Contrast CTA of the cervical carotids was performed 3-D reconstruction imaging obtained at a separate workstation. Right carotid system: Minimal plaque is seen of the right common carotid artery. There is minimal pl aque also noted at the carotid bulb and proximal ICA. No significant diameter reduction. ECA is pat ent. Right vertebral artery appears unremarkable. Left carotid system: Mild plaque is seen of the left common carotid artery. There is mild plaque als o noted at the carotid bulb and proximal ICS. No significant diameter reduction. ECA is patent. Lef t vertebral artery appears unremarkable. IMPRESSION: 1. No significant diameter reduction to account for the patient's symptoms. CTA [place] with 3-D reconstruction Contrast CTA of the [place] was performed 3-D reconstruction imaging obtained at a separate workstation. Vertebrobasilar system as well as intracranial portions of the internal carotid arteries and their ma ambrosio tributaries are patent. I do not see evidence for sizable aneurysm or vascular malformation. Pl ease note MRI provides greater sensitivity and specificity. Visualized brain appears grossly unremar kable. IMPRESSION: 1. No siginificant abnormality.
[2016-07-25 16:45] VITALS: BP 117/65
--- NOTE | 2016-07-25 19:04 | P.PN ---
Subjective This patient is a 61-year-old right-handed white female who was admitted to Hospital with symptoms of left-sided weakness 2 days prior to her admission. Apparently she was describing weakness involving her left arm and leg. Family also had noted that she was very tremulous. Apparently she has a significant history of alcohol abuse in the past. Daughter stated that her mother does have a drinking problem. She is also recently been treated for anxiety disorder and had been taking Xanax on a regular basis which was recently reduced by her primary care physician. It is not known if she may have had mild withdrawal symptoms. Patient was brought into the emergency room where she was further evaluated. She has no previous history of TIA or stroke. She did undergo an initial computed tomography scan of the brain which came back negative for acute stroke or hemorrhage. Patient was sent for MRI of the brain today. MRI indicates age-related atrophy and chronic small vessel ischemic changes. No evidence of acute intracranial process at this time. No enhancing lesions were seen. Patient also underwent CTA angiogram of the head and neck today. Results came back normal with no significant abnormality. Results of these neuroimaging studies were reviewed with the patient in detail. She seems to be doing better in terms of her left-sided weakness and symptoms of weakness. Her clinical history are still consistent with probable TIA. Patient was seen by vascular surgery today. She is to follow-up with vascular surgery in the outpatient clinic. Patient is being evaluated for possible discharge to home later today. We will continue close neurological follow-up for the patient during this admission. Objective - Vital Signs Vital signs: Vital Signs Temp 97.3 F L 07/25/16 08:00 Pulse 93 07/25/16 12:00 Resp 16 07/25/16 16:00 BP 117/65 07/25/16 16:00 Pulse Ox 98 07/25/16 16:00 Intake & Output 07/24/16 07/25/16 07/25/16 18:59 06:59 18:59 Intake Total 600 300 402 Balance 600 300 402 Weight 51.9 kg Intake: Oral 600 300 402 Other: Voiding Method Toilet Toilet Toilet # Voids 1 1 2 - Exam Physical examination: PHYSICAL EXAMINATION: Patient is resting comfortably in bed. VITAL SIGNS: Blood pressure is [117/65]. Heart rate is [92]. Respiration is [16] . Temperature is [97.3]. HEENT: Head is atraumatic, neck is supple, there were no carotid bruits. CHEST: Lungs are clear to auscultation and percussion. CARDIAC: S1, S2 normal rate and rhythm. There is no murmur. ABDOMEN: Soft and nontender. Bowel sounds are present. EXTREMITIES: There is no pedal edema. Peripheral pulses are present. Neurological examination: Patient's neurological examination is nonfocal at this time. - Labs CBC & Chem 7: 07/25/16 06:25 07/25/16 06:25 Labs: Abnormal Lab Results - Last 24 Hours (Table) 07/25/16 07/25/16 Range/Units 06:25 06:25 RBC 3.52 L (3.80-5.40) m/uL MCV 104.6 H (80.0-100.0) fL Chloride 114 H (98-107) mmol/L Carbon Dioxide 19 L (22-30) mmol/L Assessment and Plan (1) TIA (transient ischemic attack) Status: Acute Code(s): G45.9 - TRANSIENT CEREBRAL ISCHEMIC ATTACK, UNSPECIFIED (2) Benign essential tremor Status: Acute Code(s): G25.0 - ESSENTIAL TREMOR (3) Gait abnormality Status: Acute Code(s): R26.9 - UNSPECIFIED ABNORMALITIES OF GAIT AND MOBILITY (4) Alcohol intoxication Status: Acute Code(s): F10.129 - ALCOHOL ABUSE WITH INTOXICATION, UNSPECIFIED (5) Depression Status: Acute Code(s): F32.9 - MAJOR DEPRESSIVE DISORDER, SINGLE EPISODE, UNSPECIFIED Plan: This patient is a 61-year-old female who was initially admitted to hospital with possible right hemispheric TIA. She presented with left-sided hemiparesthesias. She has undergone extensive stroke evaluation including MRI of the brain and CTA angiogram of the head and neck. These studies were completed today and are both negative for any acute changes. Patient was seen by vascular surgery today as well. She is to follow-up outpatient with vascular surgery. We would recommend close monitoring for any recurrent episodes of TIA for this patient. She is to continue with current medications. She is to continue on aspirin daily for secondary stroke prevention. She may follow-up in the outpatient neurology clinic in 2-3 weeks. Overall prognosis at this time remains guarded.
--- NOTE | 2016-07-26 10:47 | EEG ---
DATE OF SERVICE: 07/24/2016 INDICATIONS FOR EXAMINATION: This patient is a 61-year-old female being evaluated for left-sided weakness and possible TIA. AGE: 61Y FINDINGS: A routine 21-channel awake digital EEG recording was accomplished utilizing the 10 to 20 international system with bipolar and referential montages. The background activity in the most alert resting state consists of a low to medium amplitude fairly well developed and well sustained 6 to 7 Hz activity over the posterior head regions. This posterior rhythm attenuates to eye opening. There is a small amount of low amplitude 18 to 20 Hz beta activity seen maximally over the anterior head regions. Muscle and movement artifact was observed on a few occasions during the tracing. Hyperventilation was not performed. Photic stimulation at flash frequencies of 2 to 30 Hz produced a good symmetrical occipital driving response. No epileptiform discharges were seen. IMPRESSION: This EEG is mildly abnormal in diffuse fashion due to slight slowing of the EEG background. The EEG failed to reveal any focal, lateralizing or epileptiform abnormalities. Clinical correlation is recommended.
--- NOTE | 2016-07-26 11:07 | DS ---
DATE OF ADMISSION: 07/23/2016 DATE OF DISCHARGE: 07/25/2016 DATE OF SERVICE: 07/25/2016 FINAL DIAGNOSES: 1. Weakness of the left side of the body, possible acute cerebrovascular accident, improved. 2. Significant tremors and anxiety and panic attack, improved. 3. Increased MCV. 4. Hypokalemia. 5. Increased random blood sugar. 6. Increased AST. 7. History of hypertension. 8. History of gastroesophageal reflux disease.. 9. History of chronic obstructive pulmonary disease. 10. History of pneumonia. 11. Anxiety, depression, bipolar, panic disorder , not otherwise specified. 12. Bilateral cataracts. 13. Remote history of nicotine dependence. 14. Possible moderate stenosis 50% to 60% of the right internal carotid artery and mild stenosis of the left internal carotid artery. DISCHARGE DISPOSITION: Patient will be discharged in a stable condition with guarded prognosis. HISTORY OF PRESENT ILLNESS: This 61-year-old woman with a past medical history of multiple medical problems admitted with weakness of the left side of the body and tremors and shakes and patient had multiple evaluations. The carotid ultrasound as above and impression of CT scan and MRI showed aged related atrophic and small vessel ischemic changes. Neurology saw the patient also. Cardiology saw the patient. A 2-D echo with Doppler was ejection fraction 55% to 60%. The patient improved significantly. The patient discharged home in a stable condition with guarded prognosis. On exam, vitals are stable . CARDIOVASCULAR: S1 and S2, muffled. ABDOMEN: Soft. NERVOUS SYSTEM: No focal deficits. Power is normal on upper arms. Tremors are much less. DISCHARGE ADVICE: 1. Diet is cardiac. 2. Activity limited until followup. 3. Follow up Dr. Heidi Bates as advised. 4. Follow up with Dr. Laura Milan as advised. 5. Follow up with Dr. Gasotn as recommended. The medications are: 1. Ecotrin 81 mg p.o. daily. 2. Lipitor 10 mg q.h.s. 3. Pristiq 50 mg p.o. daily. 4. Vitamin D2, 50,000 daily. 5. Folic acid 1 mg daily. 6. Lasix 20 mg daily. 7. Ativan 0.5 mg t.i.d. p.r.n. 8. Multivitamin 1 p.o. daily. 9. Seroquel 300 mg q.h.s. 10. Vitamin B1, Thiamine, 100 mg daily. 11. Topamax 50 mg p.o. daily.
== END 2016-07-25 18:57 | disposition home or self-care (01) ==
LOC: EC 15:29 → 6SEL 17:18
PROVIDERS: ADMIT Internal Medicine; ATTEND Internal Medicine
DX: R53.1 Weakness (principal); G25.0 Essential tremor; R20.0 Anesthesia of skin; F41.0 Panic disorder [episodic paroxysmal anxiety]; G81.94 Hemiplegia, unspecified affecting left nondominant side; I65.23 Occlusion and stenosis of bilateral carotid arteries; F10.20 Alcohol dependence, uncomplicated; E87.6 Hypokalemia; F31.9 Bipolar disorder, unspecified; I10 Essential (primary) hypertension; J44.9 Chronic obstructive pulmonary disease, unspecified; Z79.899 Other long term (current) drug therapy; Z82.49 Family history of ischemic heart disease and other diseases of the circulatory system; Z87.891 Personal history of nicotine dependence; Z91.5 Personal history of self-harm; R53.83 Other fatigue; Z88.8 Allergy status to other drugs, medicaments and biological substances; R26.2 Difficulty in walking, not elsewhere classified
CPT/HCPCS: 96360 ×2; 99285 ×2; 36415; 95816; 93005; 93306; 97116; 97161; 97535; 97165; 92523; 82652; 80061 ×2; 80053; 80048 ×2; 84443; 82607 ×2; 82746; 85025 ×3; 81001; 80306; 83520 ×2; 80320; 83970; 71020; 93880; 70496; 70450; 70498; 70553; 96361; 96375; G0378 ×3; J3411 ×3; Q9967; A9577; 96366

== ENCOUNTER → 2016-08-14 | Outpatient (CLI) | payer MEDICARE ==
[2016-08-14 09:14] LABS: ALT 33 U/L (9-52); AST 34 U/L (14-36); Alkaline Phosphatase 110 U/L (38-126); Anion Gap 12 mmol/L; Blood Urea Nitrogen 15 mg/dL (7-17); Calcium 9.9 mg/dL (8.4-10.2); Carbon Dioxide 26 mmol/L (22-30); Chloride 103 mmol/L (98-107); Glucose 93 mg/dL (74-99); Non-African American GFR(MDRD) >60 (>60 ml/min/1.73 sqM); Potassium 4.2 mmol/L (3.5-5.1); Sodium 141 mmol/L (137-145); Total Bilirubin 0.8 mg/dL (0.2-1.3); Total Protein 7.6 g/dL (6.3-8.2)
== END | disposition home or self-care (01) ==
LOC: LABWHC1 08:19
PROVIDERS: ATTEND Internal Medicine Endocrinology, Diabetes & Metabolism
DX: E21.0 Primary hyperparathyroidism (principal)
CPT/HCPCS: 36415; 80053; 82306; 83970

== ENCOUNTER → 2016-08-24 | Outpatient (CLI) | payer MEDICARE ==
[2016-08-30 09:49] LABS: Mis test requested (Blood) MyastheniaGravisPnl1
== END | disposition home or self-care (01) ==
LOC: LABWHC1 12:18
PROVIDERS: ATTEND Psychiatry & Neurology Neurology
DX: H02.402 Unspecified ptosis of left eyelid (principal)
CPT/HCPCS: 36415; 83519; 86255

== ENCOUNTER → 2016-09-15 | Outpatient (CLI) | payer BC, MEDICARE ==
--- NOTE | 2016-09-15 11:57 | US ---
EXAMINATION TYPE: US thyroid st tissue head/neck DATE OF EXAM: 09/15/2016 COMPARISON: NONE CLINICAL HISTORY: E21.3 HYPERPARATHYROIDISM. Patient stated is taking Vitamin D for hyperparathyroidi sm. GLAND SIZE: Right Lobe: 4.6 x 1.8 x 1.6 cm Overall Parenchyma: homogenous Left Lobe: 4.4 x 1.5 x 1.4 cm Overall Parenchyma: homogeneous Isthmus Thickness: 0.4 cm NODULES RIGHT: # of nodules measured on right: 1 1. 0.3 X 0.2 x 0.1 cm hypoechoic cystic nodule at the upper pole with well-defined margins. This n odule is wider than tall and shows no intranodular vascularity. Prior size: no prior LEFT: # of nodules measured on left: 0 ISTHMUS: # of nodules measured in the isthmus: 0 Bilateral neck scanned, no evidence of lymphadenopathy. No parathyroid nodules are seen. IMPRESSION: TINY RIGHT-SIDED THYROID NODULE, TOO SMALL TO CHARACTERIZE ACCURATELY.
== END | disposition home or self-care (01) ==
LOC: RADUSWWP 11:02
PROVIDERS: ATTEND Family Medicine
DX: E04.1 Nontoxic single thyroid nodule (principal); E21.3 Hyperparathyroidism, unspecified
CPT/HCPCS: 76536

== ENCOUNTER → 2016-11-21 | Outpatient (CLI) | payer BC, MEDICARE ==
[2016-11-21 14:56] LABS: ALT 47 U/L (9-52); AST 35 U/L (14-36); Alkaline Phosphatase 111 U/L (38-126); Anion Gap 12 mmol/L; Blood Urea Nitrogen 9 mg/dL (7-17); Calcium 9.7 mg/dL (8.4-10.2); Carbon Dioxide 23 mmol/L (22-30); Chloride 105 mmol/L (98-107); Glucose 104 mg/dL (74-99); Non-African American GFR(MDRD) >60 (>60 ml/min/1.73 sqM); Potassium 3.7 mmol/L (3.5-5.1); Sodium 140 mmol/L (137-145); Total Bilirubin 0.3 mg/dL (0.2-1.3); Total Protein 6.9 g/dL (6.3-8.2)
== END ==
LOC: LABWHC1 14:27
PROVIDERS: ATTEND Internal Medicine Endocrinology, Diabetes & Metabolism
DX: E21.3 Hyperparathyroidism, unspecified (principal)
CPT/HCPCS: 36415; 80053; 82306; 83970

== ENCOUNTER 2016-12-05 21:08 | Emergency (ER) | payer BC, MEDICARE ==
[2016-12-05 21:20] VITALS: BP 137/92; PULSE 95; RESP 16; TEMP 97
[2016-12-05] MEDS ORDERED: HYDROcodone/APAP 7.5-325MG 1 EACH TAB PO ONE (21:26)
--- NOTE | 2016-12-05 22:02 | ED ---
Back Pain HPI - General Chief Complaint: Back Pain/Injury Stated Complaint: Lower Back Pain Time Seen by Provider: 12/05/16 21:25 Source: patient, RN notes reviewed Limitations: no limitations - History of Present Illness Initial Comments: this a 61-year-old female presents emergency Department with chief complaint low back pain. Patient states that on Sunday she [place] and states that she fell backwards on the ground. Patient complains of low back pain diffuse in nature. Patient denies any bowel , bladder incontinence or retention. She denies any pain that radiates into her legs states that she felt that she had some numbness in one day. Patient denies any dysuria, hematuria upper back pain no head injury no LOC. - Related Data Home Medications Medication Instructions Recorded Confirmed Topiramate 50 mg PO DAILY 01/09/16 07/23/16 QUEtiapine FUMARATE [SEROquel] 300 mg PO HS 01/20/16 07/23/16 Furosemide [Lasix] 20 mg PO DAILY 01/22/16 07/23/16 Desvenlafaxine Succinate [Pristiq] 50 mg PO DAILY 07/23/16 07/23/16 Ergocalciferol [Vitamin D2 50,000 unit PO Q7D 07/23/16 07/23/16 (DRISDSISSY)] Previous Rx's Medication Instructions Recorded Aspirin EC [Ecotrin Low Dose] 81 mg PO DAILY #30 tablet.dr 07/25/16 Atorvastatin Calcium [Lipitor] 10 mg PO HS #30 tab 07/25/16 Folic Acid 1 mg PO DAILY@1200 #30 tablet 07/25/16 LORazepam [Ativan] 0.5 mg PO TID #20 tab 07/25/16 Multivitamins, Thera [Multivitamin 1 tab PO DAILY@1200 #30 tablet 07/25/16 (formulary)] Thiamine [Vitamin B-1] 100 mg PO DAILY@1200 #30 tablet 07/25/16 Hydrocodone/Acetaminophen [Parlin 1 tab PO Q6HR PRN #14 tab 12/05/16 5-325] Allergies Allergy/AdvReac Type Severity Reaction Status Date / Time cortisone Allergy Swelling Verified 12/05/16 21:18 lamotrigine [From Lamictal] Allergy Rash/Hives Verified 12/05/16 21:18 Review of Systems ROS Statement: Those systems with pertinent positive or pertinent negative responses have been documented in the HPI. ROS Other: All systems not noted in ROS Statement are negative. Past Medical History Past Medical History: COPD, GERD/Reflux, Hypertension, Musculoskeletal Disorder , Pneumonia Additional Past Medical History / Comment(s): Osteoporosis, anxiety/depression History of Any Multi-Drug Resistant Organisms: None Reported Past Surgical History: Adenoidectomy, Orthopedic Surgery, Tonsillectomy Additional Past Surgical History / Comment(s): BILATERAL CATARACT SURGERY,RIGHT SHOULDER SX, BILATERAL HIP BURSITIS SX, rhinopasty Past Anesthesia/Blood Transfusion Reactions: No Reported Reaction Past Psychological History: Anxiety, Bipolar, Depression, Panic Disorder Smoking Status: Former smoker Past Alcohol Use History: Occasional Past Drug Use History: None Reported - Past Family History Mother Family Medical History: Congestive Heart Failure (CHF) Additional Family Medical History / Comment(s): Mother at age 84 from old age. Father Family Medical History: Pulmonary Embolus Additional Family Medical History / Comment(s): Father at age 60 from pulmonary embolism. Brother(s) Additional Family Medical History / Comment(s): She has 2 brothers and one has multiple medical problems which she does not know details other than retinal detachment. Sister(s) Additional Family Medical History / Comment(s): She has one sister with history of sinus problems and migraine headaches. Son(s) Additional Family Medical History / Comment(s): She has 2 sons are healthy. General Exam Limitations: no limitations General appearance: alert, in no apparent distress Neck exam: Present: normal inspection, full ROM. Absent: tenderness, meningismus, lymphadenopathy Respiratory exam: Present: normal lung sounds bilaterally. Absent: respiratory distress, wheezes, rales, rhonchi, stridor Cardiovascular Exam: Present: regular rate, normal rhythm, normal heart sounds. Absent: systolic murmur, diastolic murmur, rubs, gallop, clicks GI/Abdominal exam: Present: soft, normal bowel sounds. Absent: distended, tenderness, guarding, rebound, rigid Extremities exam: Present: normal inspection, full ROM, normal capillary refill. Absent: tenderness, pedal edema, joint swelling, calf tenderness Back exam: Present: normal inspection, full ROM, tenderness (diffuse low back tenderness), paraspinal tenderness, vertebral tenderness Neurological exam: Present: alert, oriented X3, CN II-XII intact, reflexes normal. Absent: motor sensory deficit Skin exam: Present: warm, dry, intact, normal color. Absent: rash Course Vital Signs 12/05/16 21:18 Temperature 97 F L Pulse Rate 95 Respiratory 16 Rate Blood Pressure 137/92 O2 Sat by Pulse 99 Oximetry Medical Decision Making - Medical Decision Making 61-year-old female presented for fall, back pain. There is no acute fracture evident of the pelvis or lumbar spine as read by radiologist. Patient does have some osteopenia. Patient we discharge of a short course of pain medication and follow-up with PCP. Disposition Clinical Impression: Fall, Lumbar back pain Disposition: HOME SELF-CARE Condition: Stable Instructions: Acute Low Back Pain (ED) Additional Instructions: Please return to the Emergency Department if symptoms worsen or any other concerns. Prescriptions: Hydrocodone/Acetaminophen [Parlin 5-325] 1 tab PO Q6HR PRN #14 tab PRN Reason: Pain Referrals: Laura Milan MD [Primary Care Provider] - 1-2 days Time of Disposition: 22:21
--- NOTE | 2016-12-05 22:17 | XR ---
AP pelvis HISTORY: Trauma and pain Single frontal view of the pelvis submitted and correlated to prior 05/17/2013 No significant interval change. IMPRESSION: No fracture or dislocation is evident.
--- NOTE | 2016-12-05 22:18 | XR ---
Lumbosacral spine history: Low back pain, fall and trauma 5 views of the lumbosacral spine Correlation to prior exam 09/30/2015 There is no interval change. Degenerative disc changes present. There are facet arthropathy changes a nd vascular calcifications present. IMPRESSION: Stable exam, no acute abnormality. Osteopenia could limit sensitivity. No acute fracture or subluxation is evident.
== END 2016-12-05 22:25 | disposition home or self-care (01) ==
LOC: EC 21:08
DX: M54.5 Low back pain (principal); I10 Essential (primary) hypertension; F31.9 Bipolar disorder, unspecified; Z87.891 Personal history of nicotine dependence; Z88.8 Allergy status to other drugs, medicaments and biological substances; Z79.899 Other long term (current) drug therapy; W19.XXXA Unspecified fall, initial encounter; Y93.01 Activity, walking, marching and hiking; Y92.828 Other wilderness area as the place of occurrence of the external cause
CPT/HCPCS: 72110; 72170; 99283

== ENCOUNTER 2017-01-29 15:57 | Emergency (ER) | payer BC, MEDICARE ==
[2017-01-29 17:08] LABS: Basophils # (A) 0.1 k/uL (0-0.2); Basophils % (A) 1 %; CH 33.1; CHCM 32.6; Eosinophils # (A) 0.1 k/uL (0-0.7); Eosinophils % (A) 1 %; HCT 40.2 % (34.0-46.0); Luc # (Auto) 0.26; Luc % (Auto) 4; Lymphocytes # (A) 2.4 k/uL (1.0-4.8); Lymphocytes % (A) 33 %; MCH 32.9 pg (25.0-35.0); MCHC 32.3 g/dL (31.0-37.0); MCV 102.1 fL (80.0-100.0); Macrocytosis Slight; Mean Platelet Volume 6.7; Monocytes # (A) 0.4 k/uL (0-1.0); Monocytes % (A) 5 %; Neutrophils # (A) 4.1 k/uL (1.3-7.7); Neutrophils % (A) 56 %; RBC 3.93 m/uL (3.80-5.40); RDW 13.8 % (11.5-15.5); WBC 7.3 k/uL (3.8-10.6); WBC (Perox) 7.18
[2017-01-29 17:10] LABS: Appearance,Urine Clear (Clear); Bilirubin,Urine Negative (Negative); Glucose,Urine (UA) Negative (Negative); Ketones,Urine Negative (Negative); Leukocyte Esterase,Urine Negative (Negative); Nitrite,Urine Negative (Negative); PH, Urine 5.5 (5.0-8.0); Protein,Urine Negative (Negative); Specific Gravity,Urine 1.001 (1.001-1.035); UA Billing (MACRO vs. MICRO) CHEM; Urobilinogen,Urine <2.0 mg/dL (<2.0)
[2017-01-29 17:32] LABS: ALT 32 U/L (9-52); AST 26 U/L (14-36); Alkaline Phosphatase 95 U/L (38-126); Anion Gap 13 mmol/L; Blood Urea Nitrogen 10 mg/dL (7-17); Calcium 9.2 mg/dL (8.4-10.2); Carbon Dioxide 23 mmol/L (22-30); Chloride 101 mmol/L (98-107); Glucose 79 mg/dL (74-99); Non-African American GFR(MDRD) >60 (>60 ml/min/1.73 sqM); Sodium 137 mmol/L (137-145); Total Bilirubin 0.2 mg/dL (0.2-1.3); Total Protein 6.8 g/dL (6.3-8.2)
[2017-01-29 17:34] LABS: Potassium 2.9 mmol/L (3.5-5.1)
[2017-01-29] MEDS ORDERED: RX INFO: IV CONTRAST WAS GIVEN 1 EACH MISC MISCELLANE PRN ×2 (17:34→18:49)
--- NOTE | 2017-01-29 17:50 | ED ---
General Adult HPI - General Chief complaint: Abdominal Pain Stated complaint: Abdominal Pain Time Seen by Provider: 01/29/17 16:22 Source: patient Mode of arrival: ambulatory Limitations: no limitations - History of Present Illness Initial comments: Arabella is a 61-year-old female with past medical history listed below who presents to the emergency department today for evaluation of abdominal pain. Patient reports that she has had epigastric abdominal pain for approximately 2 weeks duration. She has seen her primary care physician for this and reports that she had outpatient labs drawn however they have not resulted in her pain has persisted so she decided to come to the emergency department for further evaluation. Pain is in the epigastric region, worse with eating, it burning in nature and radiates to the right upper quadrant. She cannot identify any relieving factors to the pain. The pain is associated with nausea without vomiting, decreased oral intake secondary to pain and constipation which she attributes to not eating much. Patient reports that her last bowel movement was 3 days ago and was normal in color caliber and consistency. Patient does report that she occasionally drinks alcohol, she reports that she has alcoholic couple times a week and she does report drinking over the past 2 weeks. She denies any history of pancreatitis, gallstones or gallbladder pathology here she has no known history of GERD or acid reflux. As no known inflammatory bowel disease or dietary ALLERGIES. Patient denies any chest pain, shortness of breath, headaches, lightheadedness or near-syncope. - Related Data Home Medications Medication Instructions Recorded Confirmed QUEtiapine FUMARATE [SEROquel] 300 mg PO HS 01/20/16 01/29/17 Furosemide [Lasix] 20 mg PO DAILY 01/22/16 01/29/17 Desvenlafaxine Succinate [Pristiq] 50 mg PO DAILY 07/23/16 01/29/17 Topiramate [Topamax] 25 mg PO BID 01/29/17 01/29/17 Previous Rx's Medication Instructions Recorded Aspirin EC [Ecotrin Low Dose] 81 mg PO DAILY #30 tablet. 07/25/16 Atorvastatin Calcium [Lipitor] 10 mg PO HS #30 tab 07/25/16 Multivitamins, Thera [Multivitamin 1 tab PO DAILY@1200 #30 tablet 07/25/16 (formulary)] Allergies Allergy/AdvReac Type Severity Reaction Status Date / Time cortisone Allergy Swelling Verified 01/29/17 16:12 lamotrigine [From Lamictal] Allergy Rash/Hives Verified 01/29/17 16:12 Review of Systems ROS Statement: Those systems with pertinent positive or pertinent negative responses have been documented in the HPI. ROS Other: All systems not noted in ROS Statement are negative. Eyes: Denies: vision change ENT: Denies: throat pain Respiratory: Denies: cough, dyspnea Cardiovascular: Denies: chest pain, palpitations Endocrine: Reports: fatigue Gastrointestinal: Reports: abdominal pain, nausea, constipation. Denies: vomiting Genitourinary: Denies: urgency, dysuria Musculoskeletal: Denies: back pain Skin: Denies: rash Neurological: Denies: headache, weakness Psychiatric: Denies: anxiety, depression Hematological/Lymphatic: Denies: easy bleeding, easy bruising Past Medical History Past Medical History: COPD, GERD/Reflux, Hypertension, Musculoskeletal Disorder , Pneumonia Additional Past Medical History / Comment(s): Osteoporosis, anxiety/depression History of Any Multi-Drug Resistant Organisms: None Reported Past Surgical History: Adenoidectomy, Orthopedic Surgery, Tonsillectomy Additional Past Surgical History / Comment(s): BILATERAL CATARACT SURGERY,RIGHT SHOULDER SX, BILATERAL HIP BURSITIS SX, rhinopasty Past Anesthesia/Blood Transfusion Reactions: No Reported Reaction Past Psychological History: Anxiety, Bipolar, Depression, Panic Disorder Smoking Status: Current every day smoker Past Alcohol Use History: Occasional Past Drug Use History: None Reported - Past Family History Mother Family Medical History: Congestive Heart Failure (CHF) Additional Family Medical History / Comment(s): Mother at age 84 from old age. Father Family Medical History: Pulmonary Embolus Additional Family Medical History / Comment(s): Father at age 60 from pulmonary embolism. Brother(s) Additional Family Medical History / Comment(s): She has 2 brothers and one has multiple medical problems which she does not know details other than retinal detachment. Sister(s) Additional Family Medical History / Comment(s): She has one sister with history of sinus problems and migraine headaches. Son(s) Additional Family Medical History / Comment(s): She has 2 sons are healthy. General Exam Limitations: no limitations General appearance: alert, in no apparent distress Head exam: Present: atraumatic, normocephalic Eye exam: Present: normal appearance, PERRL ENT exam: Present: normal exam, normal oropharynx Neck exam: Present: normal inspection Respiratory exam: Present: normal lung sounds bilaterally. Absent: respiratory distress Cardiovascular Exam: Present: regular rate, normal rhythm GI/Abdominal exam: Present: soft, tenderness (epigastrum and RUQ) Extremities exam: Present: normal inspection Back exam: Present: normal inspection Neurological exam: Present: alert, oriented X3 Psychiatric exam: Present: depressed. Absent: homicidal ideation, suicidal ideation Skin exam: Present: warm, dry Course Vital Signs 01/29/17 01/29/17 01/29/17 16:01 18:43 20:08 Temperature 98.2 F 97.1 F L Pulse Rate 90 75 60 Respiratory 18 17 18 Rate Blood Pressure 139/78 95/54 81/44 O2 Sat by Pulse 98 95 99 Oximetry 01/29/17 01/29/17 20:28 20:52 Temperature Pulse Rate 79 89 Respiratory 16 16 Rate Blood Pressure 91/50 104/57 O2 Sat by Pulse 97 98 Oximetry Medical Decision Making - Medical Decision Making Patient was seen and evaluated Vital Signs were reviewed Labs and ultrasound were ordered Resulted with a critical low potassium as well as an elevated lipase level IV potassium replacement was ordered Ultrasound with no acute findings CT of the abdomen was ordered to evaluate for any occult pancreas pathology Computed tomography scan with no acute pathology With the patient regarding the elevated lipase level, at this time patient did admit to drinking alcohol multiple times at the week. I advised her that this is likely causing inflammation of her pancreas which could be detrimental to her health and resultant pathology including diabetes. Patient's breast understanding of this and states that she will refrain from drinking alcohol. All lab and CT results were discussed with the patient, patient resting comfortably in ER bed and states she is comfortable being discharged home. Advised the patient to maintain a bland diet, drink plenty of fluids, maintain hydration and follow up with her primary care physician and possibly gastroenterology for further evaluation. Patient was advised to return the emergency department for any acute worsening of her abdominal pain or inability tolerate oral intake. - Lab Data Result diagrams: 01/29/17 16:57 01/29/17 16:57 Lab Results 01/29/17 01/29/17 01/29/17 Range/Units 16:57 16:57 16:57 WBC 7.3 (3.8-10.6) k/uL RBC 3.93 (3.80-5.40) m/uL Hgb 13.0 (11.4-16.0) gm/dL Hct 40.2 (34.0-46.0) % MCV 102.1 H (80.0-100.0) fL MCH 32.9 (25.0-35.0) pg MCHC 32.3 (31.0-37.0) g/dL RDW 13.8 (11.5-15.5) % Plt Count 319 (150-450) k/uL Neutrophils % 56 % Lymphocytes % 33 % Monocytes % 5 % Eosinophils % 1 % Basophils % 1 % Neutrophils # 4.1 (1.3-7.7) k/uL Lymphocytes # 2.4 (1.0-4.8) k/uL Monocytes # 0.4 (0-1.0) k/uL Eosinophils # 0.1 (0-0.7) k/uL Basophils # 0.1 (0-0.2) k/uL Macrocytosis Slight Sodium 137 (137-145) mmol/L Potassium 2.9 L* (3.5-5.1) mmol/L Chloride 101 (98-107) mmol/L Carbon Dioxide 23 (22-30) mmol/L Anion Gap 13 mmol/L BUN 10 (7-17) mg/dL Creatinine 0.70 (0.52-1.04) mg/dL Est GFR (MDRD) Af Amer >60 (>60 ml/min/1.73 sqM) Est GFR (MDRD) Non-Af >60 (>60 ml/min/1.73 sqM) Glucose 79 (74-99) mg/dL Calcium 9.2 (8.4-10.2) mg/dL Total Bilirubin 0.2 (0.2-1.3) mg/dL AST 26 (14-36) U/L ALT 32 (9-52) U/L Alkaline Phosphatase 95 (38-126) U/L Total Protein 6.8 (6.3-8.2) g/dL Albumin 4.3 (3.5-5.0) g/dL Lipase 383 H (23-300) U/L Urine Color Colorless Urine Appearance Clear (Clear) Urine pH 5.5 (5.0-8.0) Ur Specific [place] 1.001 (1.001-1.035) Urine Protein Negative (Negative) Urine Glucose (UA) Negative (Negative) Urine Ketones Negative (Negative) Urine Blood Negative (Negative) Urine Nitrite Negative (Negative) Urine Bilirubin Negative (Negative) Urine Urobilinogen <2.0 (<2.0) mg/dL Ur Leukocyte Esterase Negative (Negative) Disposition Clinical Impression: Elevated lipase, Abdominal pain, Hypokalemia Disposition: HOME SELF-CARE Condition: Good Instructions: Pancreatitis (ED), Abdominal Pain (ED) Additional Instructions: Do not drink alcohol as this can worsen inflammation of the pancreas Referrals: Laura Milan MD [Primary Care Provider] - 1-2 days Time of Disposition: 20:23
[2017-01-29] MEDS: POTASSIUM CHLORIDE 10 MEQ, LIDOCAINE 2% INJ 10 MG in SODIUM CHLORIDE 0.9% 100 ML IVPB SCH ×3 (18:12→20:50)
--- NOTE | 2017-01-29 18:37 | US ---
EXAMINATION TYPE: US abdomen limited DATE OF EXAM: 01/29/2017 COMPARISON: NONE CLINICAL HISTORY: Pain. RUQ pain, abn labs EXAM MEASUREMENTS: Liver Length: 10.0 cm Gallbladder Wall: 0.2 cm CBD: 0.5 cm Right Kidney: 8.8 x 4.2 x 3.8 cm Pancreas: not visualized due to extensive midline bowel gas Liver: wnl Gallbladder: The gallbladder is nondistended. Gallbladder wall measures less than 3 mm thickness. The re is no cholelithiasis. Common duct caliber 5 mm, within normal limits. Right Kidney: No hydronephrosis or masses seen, limited vis due to extensive midline bowel gas. IMPRESSION: NO ACUTE PROCESS.
--- NOTE | 2017-01-29 19:57 | CT ---
EXAMINATION TYPE: CT abdomen pelvis w con DATE OF EXAM: 01/29/2017 COMPARISON: 07/04/2015 HISTORY: Generalized abdominal pain, nausea and constipation x [address] DLP: 390.40 mGycm Automated exposure control for dose reduction was used. TECHNIQUE: Helical acquisition of images was performed from the lung bases through the pelvis. CONTRAST: Performed without Oral Contrast and with IV Contrast, patient injected with 100 mL of Omnipaque 300. FINDINGS: LUNG BASES: No significant abnormality is appreciated. LIVER/GB: No significant abnormality is appreciated. PANCREAS: No significant abnormality is seen. SPLEEN: No significant abnormality is seen. ADRENALS: No significant abnormality is seen. KIDNEYS: No significant abnormality is seen. FREE AIR: No free air is visualized. RETROPERITONEAL ADENOPATHY: None visualized REPRODUCTIVE ORGANS: No significant abnormality is seen URINARY BLADDER: No significant abnormality is seen. PELVIC ADENOPATHY: None visualized. OSSEOUS STRUCTURES: No significant abnormality is seen. BOWEL: No significant abnormality is seen. OTHER: The musculature shows widespread atherosclerotic calcifications throughout the visualized rosi rial anatomy, including coronary arterial calcifications. IMPRESSION: 1. NO ACUTE ABDOMINOPELVIC PROCESS. 2. WIDESPREAD ATHEROSCLEROTIC CALCIFICATIONS NOTED, INCLUDING CORONARY CALCIFICATIONS.
[2017-01-29 20:09] VITALS: TEMP 97.1
[2017-01-29] MEDS ORDERED: POTASSIUM CHLORIDE ER 20 MEQ TAB.ER PO STA (20:24)
[2017-01-29 20:30] VITALS: RESP 16
[2017-01-29 20:54] VITALS: BP 104/57; PULSE 89
== END 2017-01-29 20:57 | disposition home or self-care (01) ==
LOC: EC 15:57
DX: R10.13 Epigastric pain (principal); R10.11 Right upper quadrant pain; E87.6 Hypokalemia; R74.8 Abnormal levels of other serum enzymes; R11.0 Nausea; I10 Essential (primary) hypertension; F31.9 Bipolar disorder, unspecified; F17.200 Nicotine dependence, unspecified, uncomplicated; Z53.8 Procedure and treatment not carried out for other reasons; Z88.8 Allergy status to other drugs, medicaments and biological substances; Z79.899 Other long term (current) drug therapy
CPT/HCPCS: 96366 ×3; 96365 ×2; 99284 ×2; 36415; 80053; 83690; 85025; 81003; 76705; 74177; J2001; J3480; Q9967

== ENCOUNTER → 2017-02-22 | Outpatient (CLI) | payer BC, MEDICARE ==
--- NOTE | 2017-02-22 12:57 | XR ---
EXAMINATION TYPE: XR abdomen 2V DATE OF EXAM: 02/22/2017 CLINICAL HISTORY: Abdominal pain and constipation. TECHNIQUE: Supine and upright views of the abdomen are obtained. COMPARISON: CT abdomen pelvis January 29, 2017 FINDINGS: Scattered gas is seen in non-distended small bowel loops. Gas and fecal material is seen in non-distended colon. The amount of fecal material is somewhat prominent in the transversing left c olon. No pneumoperitoneum or suspicious calcification is seen. The lung bases are clear. Visualized o sseous structures are intact. IMPRESSION: Overall nonobstructive bowel gas pattern. Mild to moderate mid colonic fecal stasis is f elt present.
--- NOTE | 2017-02-22 13:29 | XR ---
EXAMINATION TYPE: XR chest 2V DATE OF EXAM: 02/22/2017 COMPARISON: 07/23/2016 HISTORY: 61 year-old female abdominal pain, constipation TECHNIQUE: Frontal and lateral views FINDINGS: The cardiomediastinal silhouette, aorta, and pulmonary vasculature are within normal limits. Lungs an d pleural spaces are clear. IMPRESSION: No acute cardiopulmonary process.
== END ==
LOC: RADXRMAIN 12:29
PROVIDERS: ATTEND Family Medicine
DX: R10.9 Unspecified abdominal pain (principal)
CPT/HCPCS: 71020; 74020

== ENCOUNTER → 2017-08-27 | Outpatient (CLI) | payer BC, MEDICARE ==
[2017-08-27 16:03] LABS: ALT 29 U/L (9-52); AST 24 U/L (14-36); Albumin 4.4 g/dL (3.5-5.0); Alkaline Phosphatase 86 U/L (38-126); Anion Gap 13 mmol/L; Blood Urea Nitrogen 11 mg/dL (7-17); Calcium 9.4 mg/dL (8.4-10.2); Carbon Dioxide 22 mmol/L (22-30); Chloride 101 mmol/L (98-107); Glucose 96 mg/dL (74-99); Potassium 3.8 mmol/L (3.5-5.1); Sodium 136 mmol/L (137-145); Total Bilirubin 0.5 mg/dL (0.2-1.3); Total Protein 6.7 g/dL (6.3-8.2)
[2017-08-28 01:46] LABS: Vitamin D 25 Hydroxy 22.8 ng/mL (30.0-100.0)
[2017-08-28 02:00] LABS: Parathyroid Hormone Intact 151.8 pg/mL (14.0-72.0)
== END ==
LOC: LABWHC1 15:23
PROVIDERS: ATTEND Internal Medicine Endocrinology, Diabetes & Metabolism
DX: M81.0 Age-related osteoporosis without current pathological fracture (principal)
CPT/HCPCS: 36415; 80053; 82306; 82523; 83970; 84443

== ENCOUNTER → 2017-09-17 | Outpatient (CLI) | payer MEDICARE | END | disposition home or self-care (01) | LOC: LABPAT 14:51 | PROVIDERS: ATTEND Orthopaedic Surgery | DX: Z01.812 Encounter for preprocedural laboratory examination (principal); M16.12 Unilateral primary osteoarthritis, left hip | CPT/HCPCS: 87070 ==

== ENCOUNTER 2017-09-26 05:43 | Inpatient (IN) | payer BC, MEDICARE ==
[2017-09-18 12:52] VITALS: BMI 21.7
--- NOTE | 2017-09-25 13:40 | HP ---
HISTORY AND PHYSICAL Surgery scheduled for 09/26/2017. Arabella Ridley is a 62-year-old patient seen with progressive left hip symptomatic osteoarthritis. We discussed treatment options. She elected to proceed with total hip arthroplasty. Consent was obtained. Clearance was provided by Dr. Ko. PAST MEDICAL HISTORY: Gastroesophageal reflux disease, anxiety, osteoarthritis. PAST SURGICAL HISTORY: Left hip arthroscopy. DAILY MEDICATIONS: Daily medications are: 1. Furosemide. 2. Omeprazole. Pristiq. 3. Seroquel. ALLERGIES: Allergies are LAMICTAL, , CORTISONE. SOCIAL HISTORY: The patient currently smokes half-pack cigarettes daily. PHYSICAL EVALUATION: LEFT KNEE: She has limited range of motion with severe pain. Positive hip impingement sign. Straight leg raise is negative. Distal neurovascular exam is intact. There is global weakness with her strength. X-rays of the left hip revealed moderate osteoarthritis. IMPRESSION: 1. Left hip osteoarthritis. 2. Gastroesophageal reflux disease. 3. Tobacco use. PLAN: Direct anterior approach left total hip arthroplasty. MMODL / GLENN: [id number] /
[~2017-09-26 05:43] MED LIST: MIDAZOLAM 2 MG/2 ML VIAL IV PRN; SCOPOLAMINE 1.5MG/72HR PATCH TRANSDERM ONE; TRANEXAMIC ACID 1,000 MG in SODIUM CHLORIDE 0.9% 50 ML IVPB ONE; ceFAZolin IN SWFI 2 GM/20 ML SYRINGE IVP ONE; fentaNYL (PF) 50 MCG/ML 20 ML VIAL IVP PRN
[2017-09-26] MEDS: ACETAMINOPHEN TAB 500 MG TAB PO ONE ×2 (06:50→06:57)
[2017-09-26] MEDS: DEXAMETHASONE SOD PHOSPHATE 10 MG/ML 1 ML VIAL IV ONE ×2 (06:50→06:57)
[2017-09-26] MEDS: LIDOCAINE 1% 20 ML VIAL (10MG/ML) FOR IV START INTRADERMA PRN ×2 (06:50→06:56)
[2017-09-26] MEDS: MELOXICAM 7.5 MG TAB PO ONE ×2 (06:50→06:57)
[2017-09-26] MEDS: LACTATED RINGERS 1,000 ML IV SCH ×4 (06:56→23:23)
[2017-09-26] MEDS ORDERED: fentaNYL (PF) 50 MCG/ML 2 ML AMP ONE (07:26)
[2017-09-26] MEDS ORDERED: ePHEDrine SULFATE/0.9% NACL/PF 50 MG/5 ML SYRINGE IV ONE (07:26)
[2017-09-26] MEDS ORDERED: TRANEXAMIC ACID 1,000 MG/10 ML VIAL ONE (07:26)
[2017-09-26] MEDS ORDERED: HYDROmorphone (PF) 1 MG/ML ONE (07:26)
[2017-09-26] MEDS ORDERED: SODIUM CHLORIDE 0.9% 100 ML BAG ONE (07:26)
[2017-09-26] MEDS ORDERED: MIDAZOLAM 2 MG/2 ML VIAL ONE (07:26)
[2017-09-26] MEDS ORDERED: PROPOFOL 10 MG/ML 20 ML VIAL IV ONE (07:26)
[2017-09-26] MEDS ORDERED: PHENYLEPHRINE-0.9% NACL SYG 1 MG/10 ML SYRINGE ONE (07:26)
[2017-09-26] MEDS ORDERED: ROPIVACAINE 246.25 MG, EPINEPHrine 0.5 MG, KETOROLAC 30 MG, cloNIDine HCL/PF 80 MCG, WA... MISCELLANE ONE ×5 (07:28)
[2017-09-26] MEDS ORDERED: ceFAZolin 3,000 MG in SODIUM CHLORIDE 0.9% IRRIGATIO 3,000 ML IRRIGATION ONE (08:02)
[2017-09-26] MEDS ORDERED: LACTATED RINGERS 1,000 ML IV ONE (08:44)
--- NOTE | 2017-09-26 09:28 | P.OP ---
Date of Procedure: 09/26/17 Preoperative Diagnosis: Left hip osteoarthritis Postoperative Diagnosis: Left hip osteoarthritis Procedure(s) Performed: Direct anterior left total hip arthroplasty Implants: 1. Depuy Corail KLA size 12 high offset press-fit femoral stem 2. Depuy pinnacle 48 mm press-fit acetabular shell 3. Depuy pinnacle polyethylene acetabular liner neutral 32 mm ID 48 mm OD 4. Biolox delta ceramic femoral head 32 mm +1 Anesthesia: local, spinal Surgeon: Brian Snow Pool Hand #1: Robert Ambrosio Estimated Blood Loss (ml): 250 Pathology: other (Femoral head) Condition: stable Disposition: PACU Indications for Procedure: 62-year-old patient seen with symptomatic left hip osteoarthritis. After treatment options were discussed, she elected to proceed with total hip arthroplasty. Operative Findings: see description of procedure Description of Procedure: The patient was taken to the operative suite. Patient underwent a spinal anesthetic by the department of anesthesia. Patient was then transferred to the [facility] table. Patient was given preoperative IV antibiotics and TXA. Both lower extremities were placed in standard leg spars. The hip was then prepped and draped in the normal sterile orthopedic fashion. A standard anterior incision was made beginning 3 cm lateral and 1 cm distal to the ASIS extending 10 cm. Dissection was then carried down through the subcutaneous soft tissues down to the fascia overlying the tensor fascia danyel. An incision was now made through the fascia. Careful dissection was taken down exposing the tensor fascia danyle muscle. A Cobra retractor was now placed along the medial femoral neck and a second one along the lateral femoral neck. The venous circumflex vessels were now identified, cauterized and clipped. We identified the anterior hip capsule. An incision was made through the hip capsule along the lateral border. Tag sutures were then placed along the anterior capsule and lateral capsule. We then performed a capsulotomy. Retractors were now placed around the femoral neck itself. A Cobra retractor was now placed along the anterior acetabulum. Good exposure was now noted of the femoral head/neck complex. Residual labrum was debrided out. We placed the extremity into 3 turns of fine traction. We were then able to introduce a skid in between the femoral head and acetabulum. A placed a awl into the femoral head. We took 2 turns of traction off the extremity. Rotation was now released. The femoral head was then dislocated without difficulty. Additional releasing was performed of the capsule. The head was then reduced. All traction was released. A femoral neck cut was now made with a sagittal saw. It was completed with an osteotome at the lateral neck area. The femoral head was now removed without difficulty. The extremity was now rotated to 45 of external rotation. It was locked in position. Residual labrum was now debrided out. Serial reaming was performed of the acetabulum. Once we reached the appropriate size and a trial was position and fit nicely. The appropriate size was now chosen opened and made available. The wound was irrigated with pulse lavage mechanical irrigation. The acetabular cup was introduced into the acetabulum without difficulty. The C-arm/fluoroscopy was now brought into the operative field. We made sure we had a true AP pelvic view. We now under direct C-arm/fluoroscopy introduced into the acetabular component with appropriate version and inclination. It was well seated and stable. The C-arm was pulled back. An appropriate liner was introduced and clicked into position. It was felt to be stable. At this point retractors were removed. The extremity was now placed into 120 external rotation with no traction. The leg was now dropped to the ground and adducted. Appropriate retractors were now positioned along the proximal femur. We also placed our femoral look into position. Additional capsular releasing was performed to gain access to the proximal femur. We now used a box osteotome. A canal finder was now utilized. Serial broaching was now performed until we reached the appropriate size with good overall rotational stability. Appropriate calcar planing was performed. A trial head/neck was placed into position. The hip was now reduced. The C-arm /fluoroscopy was brought back into the operative field. A spot film was obtained of the nonoperative hip. A spot film was obtained of the trial components. Overlays were performed, we noted good overall alignment and positioning for determining leg length. The C-arm/fluoroscopy was pulled back. Retractors were repositioned and the hip was dislocated. The leg was again taken down to the ground and adducted. Appropriate retractors were repositioned as well as the femoral hook. All trial components were removed. The femoral implant was opened along with the femoral head. The wound was irrigated with pulse lavage mechanical irrigation. The deep soft tissues were infiltrated local analgesic. The femoral implant was introduced with good purchase and fixation noted. The femoral head was introduced with good positioning and fixation noted. Retractors were now removed. The hip was now reduced. There appeared be good positioning of the hip. Was confirmed under fluoroscopy and spot films were obtained to document that. Bipolar cautery had been utilized intermittently through the procedure for hemostasis. The wound was irrigated copiously with pulse lavage mechanical irrigation. The superficial soft tissues were infiltrated with local analgesic. The fascia was repaired with Vicryl suture. The subcutaneous soft tissues were repaired in layers with Vicryl suture. The skin was approximated with pernio/Dermabond. Sterile dressings were applied. Patient was then awakened, transferred to a bed and taken to recovery in stable condition. Adarsh CHEUNG assisted with the procedure.
[2017-09-26] MEDS ORDERED: HYDROmorphone 0.5 MG/0.5 ML SYRINGE IVP PRN ×3 (09:30)
[2017-09-26] MEDS ORDERED: NALOXONE 0.4 MG/ML 1 ML VIAL IV PRN (09:30)
[2017-09-26] MEDS ORDERED: ONDANSETRON 4 MG/2 ML VIAL IVP PRN (09:30)
[2017-09-26] MEDS ORDERED: HYDROcodone/APAP 7.5-325MG 1 EACH TAB PO PRN (09:30)
[2017-09-26] MEDS ORDERED: hydrOXYzine PAMOATE 25 MG CAP PO PRN (09:30)
--- NOTE | 2017-09-26 09:31 | FL ---
Fluoroscopy HISTORY: Hip replacement 27 seconds fluoroscopy time supplied to the referring clinician. 1 intraoperative C-arm image docume nts the procedure. See dictated report from orthopedic surgery.
--- NOTE | 2017-09-26 09:35 | XR ---
Limited left hip HISTORY: Anterior hip placement Intraoperative C-arm image documents the procedure.
[2017-09-26] MEDS ORDERED: SODIUM CHLORIDE 0.9% 1,000 ML IV ONE (11:24)
[2017-09-26] MEDS: traMADol 50 MG TAB PO SCH ×3 (12:16→21:56)
[2017-09-26 12:49] LABS: Basophils % (A) 0 %; Eosinophils % (A) 0 %; HCT 33.4 % (34.0-46.0); Lymphocytes # (A) 0.3 k/uL (1.0-4.8); Lymphocytes % (A) 4 %; MCH 33.2 pg (25.0-35.0); MCHC 32.2 g/dL (31.0-37.0); MCV 103.3 fL (80.0-100.0); Macrocytosis Slight; Mean Platelet Volume 6.7; Monocytes # (A) 0.1 k/uL (0-1.0); Monocytes % (A) 1 %; Neutrophils # (A) 7.9 k/uL (1.3-7.7); Neutrophils % (A) 94 %; Platelet Count 224 k/uL (150-450); RBC 3.24 m/uL (3.80-5.40); RDW 13.8 % (11.5-15.5); WBC 8.4 k/uL (3.8-10.6)
[2017-09-26 12:52] LABS: HGB 10.8 gm/dL (11.4-16.0)
--- NOTE | 2017-09-26 13:03 | P.CON ---
Consult Note - . Consult date: 09/26/17 Assessment/Plan:: This is a 62-year-old female was admitted to the hospital for left hip replacement and we will consulted for medical management patient currently is not in any distress doesn't have any complaints except for hip pain denies any chest pain or shortness of breath Review of systems and systems has been reviewed all negative and positive findings as per HPI Patient denies any major medical problems Past medical history anxiety depression possible COPD Surgical history left hip replacement Social history smokes Family history none known at this time Laboratory Results - last 24 hr 09/26/17 11:35 WBC 8.4 RBC 3.24 L Hgb 10.8 L D Hct 33.4 L MCV 103.3 H MCH 33.2 MCHC 32.2 RDW 13.8 Plt Count 224 Neutrophils % 94 Lymphocytes % 4 Monocytes % 1 Eosinophils % 0 Basophils % 0 Neutrophils # 7.9 H Lymphocytes # 0.3 L Monocytes # 0.1 Eosinophils # 0.0 Basophils # 0.0 Macrocytosis Slight Vital Signs Temp Pulse Resp BP Pulse Ox 97.8 F 79 16 106/61 97 09/26/17 06:15 09/26/17 06:15 09/26/17 06:15 09/26/17 06:15 09/26/17 06:15 Constitutional: No acute distress, conversant, pleasant Eyes: Anicteric sclerae, moist conjunctiva, no lid-lag PERRLA ENMT: Cranial nerves grossly intact had a traumatic normocephalic Neck: Supple, FROM, no masses, or JVD No carotid bruits No thyromegaly Lungs: Clear to auscultation Clear to percussion Normal respiratory effort, no accessory muscle use Cardiovascular: Heart regular in rate and rhythm, No murmurs, gallops, or rubs No peripheral edema Abdominal: Soft Nontender, no guarding, rebound or rigidity Abdomen moving with respiration Normoactive bowel sounds No hepatomegaly, No splenomegaly No palpable mass No abdominal wall hernia noted Skin: Normal temperature, tone, texture, turgor No induration No subcutaneous nodules No rash, lesions No ulcers Extremities: No digital cyanosis No clubbing Pedal pulses intact and symmetrical Radial pulses intact and symmetrical Normal gait and station No calf tenderness Psychiatric:Alert and oriented to person, place and time Appropriate affect Intact judgement Neuro: Generalized weakness Left hip replacement management as per orthopedics Pain control Transient hypotension likely iatrogenic we will be continue IV hydration and monitor Anxiety Possible COPD no evidence of exacerbation at this time DVT and GI prophylaxis Thank you for the consult
[2017-09-26] MEDS: HYDROcodone/APAP 7.5-325MG 1 EACH TAB PO PRN ×2 (14:20→20:31)
[2017-09-26] MEDS: ceFAZolin IN SWFI 2 GM/20 ML SYRINGE IVP SCH ×2 (17:06→23:23)
[2017-09-26] MEDS ORDERED: SENNOSIDES-DOCUSATE SODIUM 1 EACH TAB PO SCH (21:00)
[2017-09-27] MEDS ORDERED: SODIUM CHLORIDE 0.9% 1,000 ML IV ONE (00:35)
[2017-09-27] MEDS: HYDROcodone/APAP 7.5-325MG 1 EACH TAB PO PRN ×3 (02:20→13:48)
[2017-09-27 03:17] VITALS: RESP 16
[2017-09-27 07:27] LABS: Basophils % (A) 0 %; Eosinophils # (A) 0.1 k/uL (0-0.7); Eosinophils % (A) 1 %; HCT 29.9 % (34.0-46.0); HGB 9.4 gm/dL (11.4-16.0); Hypochromasia Slight; Lymphocytes # (A) 1.9 k/uL (1.0-4.8); Lymphocytes % (A) 27 %; MCHC 31.4 g/dL (31.0-37.0); Macrocytosis Slight; Mean Platelet Volume 6.9; Monocytes # (A) 0.4 k/uL (0-1.0); Monocytes % (A) 6 %; Neutrophils # (A) 4.6 k/uL (1.3-7.7); Neutrophils % (A) 64 %; Platelet Count 204 k/uL (150-450); RBC 2.85 m/uL (3.80-5.40); RDW 13.9 % (11.5-15.5); WBC 7.1 k/uL (3.8-10.6)
[2017-09-27 07:37] VITALS: BP 111/56; PULSE 74; TEMP 97
[2017-09-27] MEDS ORDERED: FAMOTIDINE 20 MG TAB PO SCH (09:00)
[2017-09-27] MEDS ORDERED: ENOXAPARIN 40 MG/0.4 ML SYRINGE SQ SCH (09:00)
[2017-09-27] MEDS ORDERED: MELOXICAM 7.5 MG TAB PO SCH (09:00)
[2017-09-27] MEDS: LACTATED RINGERS 1,000 ML IV SCH (09:58)
[2017-09-27] MEDS: traMADol 50 MG TAB PO SCH ×2 (10:01→14:18)
--- NOTE | 2017-09-27 11:14 | P.PN ---
Subjective Progress Note Date: 09/27/17 Principal diagnosis: Status post left total hip arthroplasty Patient seen today resting in her hospital bed, she appears comfortable. Her pain is controlled. She's done well with therapy. She denies any headaches, lightheadedness, chest pain or shortness of breath. Objective - Vital Signs Vital signs: Vital Signs Temp 97.0 F L 09/27/17 07:34 Pulse 74 09/27/17 07:34 Resp 16 09/27/17 07:34 BP 111/56 09/27/17 07:34 Pulse Ox 95 09/27/17 07:34 Intake & Output 09/26/17 09/27/17 09/27/17 18:59 06:59 18:59 Intake Total 2101 2400 Output Total 250 Balance 1851 2400 Weight 50.349 kg Intake: IV 1601 Intake, IV Titration 1900 Amount Lactated Ringers 1,000 ml 1000 @ 80 mls/hr IV .[id number] MONAE Rx#:[id number] Sodium Chloride 0.9% 1, 900 000 ml @ 999 mls/hr IV . Q1H1M ONE Rx#:[id number] Oral 500 500 Output: Estimated Blood Loss 250 Other: # Voids 1 - Exam Left lower extremity: Incision is clean, dry, and intact. The prineo tape is in good condition. There is minimal soft tissue swelling and ecchymosis surrounding the medial and lateral aspects of the incision. Calf is soft, no tenderness with palpation. Plantar flexion, dorsiflexion, EHL, FHL are intact. Sensory exam to light touch throughout the extremity is intact, dorsal pedis pulses 2+. - Labs CBC & Chem 7: 09/27/17 06:38 Labs: Abnormal Lab Results - Last 24 Hours (Table) 09/26/17 09/27/17 Range/Units 11:35 06:38 RBC 3.24 L 2.85 L (3.80-5.40) m/uL Hgb 10.8 L D 9.4 L (11.4-16.0) gm/dL Hct 33.4 L 29.9 L (34.0-46.0) % MCV 103.3 H 105.0 H (80.0-100.0) fL Neutrophils # 7.9 H (1.3-7.7) k/uL Lymphocytes # 0.3 L (1.0-4.8) k/uL Assessment and Plan Plan: Assessment: Postop day #1 status post left total hip arthroplasty Plan: Pain control, we'll discharge home on oral medications GI and DVT prophylaxis, aspirin 325 mg twice a day for a month Wound care instructions were discussed Home care nursing after therapy Medical recommendations Discharge planning: Patient will be discharged home today Time with Patient: Less than 30
--- NOTE | 2017-09-27 11:21 | P.DS ---
Providers Date of admission: 09/26/17 05:43 Expected date of discharge: 09/27/17 Attending physician: Brian Snow Consults: 09/26/17 09:30 Consult Physician Routine Consulting Provider: Ivanna Latham Consult Reason/Comments: Medical management Do you want consulting provider notified?: Yes Primary care physician: Laura Milan MD Hospital Course: Date of admission: 09/26/2017 Date of discharge: 09/27/2017 Admission diagnosis: Status post left total hip arthroplasty Discharge diagnosis: Same Attending physician: Dr. Snow Surgical procedures: Left total hip arthroplasty Brief history: Patient is a 62-year-old female with a history of progressive primary left hip osteoarthritis. At this point patient has failed conservative treatment measures and has opted to proceed with a elective total hip arthroplasty. Hospital course: Details of patient's surgery can be found in operative report. Patient tolerated the procedure well and was subsequently transported to orthopedic floor. Patient's orthopeidc and medical care was provided daily. Patient had daily laboratory tests performed for evaluation of overall blood counts. Patient had daily physical therapy to include strengthening range of motion as well as education with walker ambulation. Patient was treated with Lovenox for their postoperative DVT prophylaxis during their inpatient stay. Patient was noted to have a relatively uneventful postoperative course. Patient reported satisfactory pain control with oral pain medications by postoperative day 0. Patient showed satisfactory progress with physical therapy. Patient moved steadily through the program and had no difficulty meeting the goals by postoperative day 1. Given patient's otherwise satisfactory course and having met physical therapy goals, plan is to discharge patient home on postoperative day 1. Discharge condition/disposition: Patient will be discharged home in stable condition. Discharge medications: Instructions are given on resumption of patient's normal daily medications per primary care recommendation, in addition patient will be prescribed Aline 7.5 mg/325 mg, aspirin 325 mg, Colace 100 mg, ferrous sulfate 325 mg. Discharge instructions: 1. Wound care and infection precautions, keep incision dry and covered while showering, no lotions, creams, moisturizers. No soaking, tubs, pools, hottubs. Do not scrub over the incision. 2. Weight-bear as tolerated with walker / cane until follow-up. 3. Ice and elevate when necessary. Do not exceed 20 minutes per hour with ice pack. 4. Utilize compression sleeve until seen at first follow up appointment. 5. Visiting nursing care. 6. Home physical therapy. 7. Pain meds and anticoagulants per prescription. 8. Pain medication has potential to cause constipation. Increase oral fluid and fiber intake. Contact primary care provider if you have not had a bowel movement within 48 hours after discharge 9. No anti-inflammatory medication until discussed at first post operative visit, this including Motrin, Aleve, Mobic, Diclofenac. 10. Follow up in office at 2 weeks postop with Adarsh Ambrosio PA-C 11. Follow up with your primary care doctor 7-10 days after discharge. 12. Contact [facility] with any questions, . Procedures: Left total hip arthroplasty Patient Condition at Discharge: Good Plan - Discharge Summary Discharge Rx Participant: Yes New Discharge Prescriptions: New Aspirin 325 mg PO BID #60 tab Docusate [Colace] 100 mg PO DAILY #30 capsule Ferrous Sulfate [Iron (65 MG Elemental)] 325 mg PO BID #60 tab HYDROcodone/APAP 7.5-325MG [Aline 7.5] 1 - 2 each PO Q6HR PRN #56 tab PRN Reason: Pain No Action Desvenlafaxine Succinate [Pristiq] 50 mg PO HS Atorvastatin Calcium [Lipitor] 10 mg PO HS #30 tab traMADol HCL [Ultram] 50 mg PO Q6HR PRN PRN Reason: Pain Furosemide [Lasix] 20 mg PO DAILY busPIRone HCL 15 mg PO BID Topiramate 50 mg PO BID ALPRAZolam [Xanax] 0.5 mg PO BID PRN PRN Reason: Anxiety Esomeprazole Magnesium [NexIUM 24Hr] 20 mg PO DAILY Ergocalciferol (Vitamin D2) [Vitamin D2] 50,000 unit PO NAVARRETE QUEtiapine FUMARATE [SEROquel] 300 mg PO HS Discharge Medication List Desvenlafaxine Succinate [Pristiq] 50 mg PO HS 07/23/16 [History] Atorvastatin Calcium [Lipitor] 10 mg PO HS #30 tab 07/25/16 [Rx] ALPRAZolam [Xanax] 0.5 mg PO BID PRN 09/18/17 [History] Ergocalciferol (Vitamin D2) [Vitamin D2] 50,000 unit PO NAVARRETE 09/18/17 [History] Esomeprazole Magnesium [NexIUM 24Hr] 20 mg PO DAILY 09/18/17 [History] Furosemide [Lasix] 20 mg PO DAILY 09/18/17 [History] QUEtiapine FUMARATE [SEROquel] 300 mg PO HS 09/18/17 [History] Topiramate 50 mg PO BID 09/18/17 [History] busPIRone HCL 15 mg PO BID 09/18/17 [History] traMADol HCL [Ultram] 50 mg PO Q6HR PRN 09/18/17 [History] Aspirin 325 mg PO BID #60 tab 09/27/17 [Rx] Docusate [Colace] 100 mg PO DAILY #30 capsule 09/27/17 [Rx] Ferrous Sulfate [Iron (65 MG Elemental)] 325 mg PO BID #60 tab 09/27/17 [Rx] HYDROcodone/APAP 7.5-325MG [Aline 7.5] 1 - 2 each PO Q6HR PRN #56 tab 09/27/17 [ Rx] Follow up Appointment(s)/Referral(s): [facility] Visiting Nurse, [NON-STAFF] - Robert Ambrosio PAC [PHYSICIAN TENTER FEEDER] - 2 Weeks Activity/Diet/Wound Care/Special Instructions: Orthopedic Discharge Instructions: 1. Wound care and infection precautions, keep incision dry and covered while showering, no lotions, creams, moisturizers. No soaking, pools, hot tubs. Do not scrub over incision. 2. Weight-bear as tolerated with walker / cane until follow-up. 3. Ice and elevate when necessary. Do not exceed 20 minutes per hour with ice pack. 4. Utilize compression sleeve until seen at first follow up appointment. 5. Visiting nursing care. 6. Home physical therapy. 7. Pain meds and anticoagulants per prescription. 8. Pain medication has potential to cause constipation. Increase oral fluid and fiber intake. Contact primary care provider if you have not had a bowel movement within 48 hours after discharge. 9. No anti-inflammatory medication until discussed at first post operative visit, this including Motrin, Aleve, Mobic, Diclofenac. 10. Follow up in office at 2 weeks postop with Adarsh Ambrosio PA-C 11. Follow up with your primary care doctor 7-10 days after discharge. 12. Contact [facility] with any questions, . Discharge Disposition: HOME WITH HOME HEALTH SERVICES
[2017-09-27] MEDS ORDERED: HYDROmorphone 2 MG TAB PO PRN ×2 (13:54)
[2017-09-27] MEDS ORDERED: HYDROmorphone 4 MG TABLET PO PRN (13:55)
--- NOTE | 2017-09-27 15:33 | P.PN ---
Subjective Progress Note Date: 09/27/17 Principal diagnosis: Patient feels okay no chest pain or shortness of breath Constitutional: No acute distress, conversant, pleasant Eyes: Anicteric sclerae, moist conjunctiva, no lid-lag PERRLA ENMT: NC/AT Oropharynx clear, no erythema, exudates Neck: Supple, FROM, no masses, or JVD No carotid bruits No thyromegaly Lungs: Clear to auscultation Clear to percussion Normal respiratory effort, no accessory muscle use Cardiovascular: Heart regular in rate and rhythm, No murmurs, gallops, or rubs No peripheral edema Abdominal: Soft Nontender, no guarding, rebound or rigidity Abdomen moving with respiration Normoactive bowel sounds No hepatomegaly, No splenomegaly No palpable mass No abdominal wall hernia noted Skin: Normal temperature, tone, texture, turgor No induration No subcutaneous nodules No rash, lesions No ulcers Extremities: No digital cyanosis No clubbing Pedal pulses intact and symmetrical Radial pulses intact and symmetrical Normal gait and station No calf tenderness Psychiatric:Alert and oriented to person, place and time Appropriate affect Intact judgement Neuro: No obvious focal deficits Abnormal Lab Results 09/27/17 06:38 WBC 7.1 RBC 2.85 L Hgb 9.4 L Hct 29.9 L MCV 105.0 H MCH 33.0 MCHC 31.4 RDW 13.9 Plt Count 204 Neutrophils % 64 Lymphocytes % 27 Monocytes % 6 Eosinophils % 1 Basophils % 0 Neutrophils # 4.6 Lymphocytes # 1.9 Monocytes # 0.4 Eosinophils # 0.1 Basophils # 0.0 Hypochromasia Slight Macrocytosis Slight Vital Signs 09/27/17 07:34 Temperature 97.0 F L Pulse Rate [ 74 Left Supine Pulse Oximetery ] Respiratory 16 Rate Blood Pressure 111/56 [Left Arm Supine] O2 Sat by Pulse 95 Oximetry Left hip replacement management as per orthopedics Pain control Transient hypotension likely iatrogenic resolved Anxiety Possible COPD no evidence of exacerbation at this time Patient medically cleared for discharge Objective - Vital Signs Vital signs: Vital Signs Temp 97.0 F L 09/27/17 07:34 Pulse 74 09/27/17 07:34 Resp 16 09/27/17 07:34 BP 111/56 09/27/17 07:34 Pulse Ox 95 09/27/17 07:34 Intake & Output 09/26/17 09/27/17 09/27/17 18:59 06:59 18:59 Intake Total 2101 2400 Output Total 250 Balance 1851 2400 Weight 50.349 kg Intake: IV 1601 Intake, IV Titration 1900 Amount Lactated Ringers 1,000 ml 1000 @ 80 mls/hr IV .[id number] MONAE Rx#:[id number] Sodium Chloride 0.9% 1, 900 000 ml @ 999 mls/hr IV . Q1H1M ONE Rx#:[id number] Oral 500 500 Output: Estimated Blood Loss 250 Other: # Voids 1 1 - Labs CBC & Chem 7: 09/27/17 06:38 Labs: Abnormal Lab Results - Last 24 Hours (Table) 09/27/17 Range/Units 06:38 RBC 2.85 L (3.80-5.40) m/uL Hgb 9.4 L (11.4-16.0) gm/dL Hct 29.9 L (34.0-46.0) % MCV 105.0 H (80.0-100.0) fL
== END 2017-09-27 14:30 | disposition home health service (06) | DRG 470 ==
LOC: 2ORMAIN 05:43 → 3SUR 09:18
PROVIDERS: ADMIT Orthopaedic Surgery; ATTEND Orthopaedic Surgery
PROC: 0SRB04A Replacement of Left Hip Joint with Ceramic on Polyethylene Synthetic Substitute, Uncemented, Open Approach (ICD-10-PCS; principal; 2017-09-26 07:30)
DX: M16.12 Unilateral primary osteoarthritis, left hip (principal); I95.89 Other hypotension; I65.29 Occlusion and stenosis of unspecified carotid artery; K21.9 Gastro-esophageal reflux disease without esophagitis; F17.210 Nicotine dependence, cigarettes, uncomplicated; E78.5 Hyperlipidemia, unspecified; F10.10 Alcohol abuse, uncomplicated; F31.9 Bipolar disorder, unspecified; M51.36 Other intervertebral disc degeneration, lumbar region; G25.0 Essential tremor; E21.3 Hyperparathyroidism, unspecified; M85.80 Other specified disorders of bone density and structure, unspecified site; E55.9 Vitamin D deficiency, unspecified; F41.9 Anxiety disorder, unspecified; J44.9 Chronic obstructive pulmonary disease, unspecified; Z86.73 Personal history of transient ischemic attack (TIA), and cerebral infarction without residual deficits; Z91.5 Personal history of self-harm; Z88.8 Allergy status to other drugs, medicaments and biological substances; Z79.82 Long term (current) use of aspirin; Z79.899 Other long term (current) drug therapy; Z98.49 Cataract extraction status, unspecified eye; Z96.1 Presence of intraocular lens; Z82.49 Family history of ischemic heart disease and other diseases of the circulatory system; Z82.3 Family history of stroke; Z80.3 Family history of malignant neoplasm of breast; Z80.0 Family history of malignant neoplasm of digestive organs; Z80.41 Family history of malignant neoplasm of ovary
CPT/HCPCS: 36415; 73501; 85025; 86850; 86900; 86901; 88300

== ENCOUNTER → 2018-01-03 | Outpatient (CLI) | payer MEDICARE ==
--- NOTE | 2018-01-03 08:21 | MR ---
EXAMINATION TYPE: MR knee LT wo con DATE OF EXAM: 01/03/2018 COMPARISON: Outside left knee x-ray October 30, 2017 HISTORY: Pain in left knee per order. Pain with locking and swelling for 3 months after left hip surg amy per patient. TECHNIQUE: Multiplanar, multisequence images of the knee is performed without IV contrast. FINDINGS: MEDIAL MENISCUS: Anterior horn is intact without tear. Oblique increased signal posterior horn of med ial meniscus extends to inferior articular surface sagittal image 21. LATERAL MENISCUS: Anterior and posterior horns are intact without tear. CRUCIATE LIGAMENTS: The anterior and posterior cruciate ligaments are intact and unremarkable. COLLATERAL LIGAMENTS: The medial collateral ligament and lateral collateral ligament complex are inta ct and unremarkable. EXTENSOR MECHANISM: Visualized quadriceps and patellar tendons are intact. EFFUSION: No significant suprapatellar joint effusion. POPLITEAL CYST: No popliteal/nguyen cyst. TRICOMPARTMENT SPACES: There is mild tricompartment joint space loss. No significant spurring is seen . CARTILAGE: Tricompartment articular cartilage is fairly well preserved. BONE MARROW SIGNAL: Heterogeneity consistent with red marrow reconversion is noted. In the distal fem oral metaphysis there is slightly more prominent vague increased T2 signal suspicious for bone marrow edema. Superior to this in the distal femoral diaphysis there is slightly more prominent increased T 2 signal with areas of round increased T1 signal that show fat saturation. No suspicious cortical [place] truction or adjacent soft tissue mass is seen. OTHER: No additional significant abnormality is appreciated. IMPRESSION: 1. Oblique full-thickness tear posterior horn of medial meniscus. 2. Background mild tricompartment degenerative changes as detailed above. 3. Unusual bone marrow changes involving distal femoral diaphysis and vague areas of edema distal fem oral metaphysis. Corresponding radiograph shows linear sclerotic areas in the distal femoral diaphysi s. 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
== END | disposition home or self-care (01) ==
LOC: RADMRIMAIN 07:26
PROVIDERS: ATTEND Orthopaedic Surgery
DX: S83.242A Other tear of medial meniscus, current injury, left knee, initial encounter (principal); M17.12 Unilateral primary osteoarthritis, left knee

== ENCOUNTER 2018-02-07 09:49 | Day surgery (SDC) | payer MEDICARE ==
[2018-02-04 11:55] VITALS: BMI 21.1
--- NOTE | 2018-02-06 16:14 | HP ---
HISTORY AND PHYSICAL REASON FOR ADMISSION: Surgery scheduled for 02/07/2018. HISTORY OF PRESENT ILLNESS: Arabella Ridley is a 62-year-old patient seen with progressive left knee pain. We discussed treatment options. She elected to proceed with knee arthroscopy. Consent obtained. PAST MEDICAL HISTORY: Gastroesophageal reflux disease, anxiety, osteoarthritis. PAST SURGICAL HISTORY: Left hip arthroplasty. MEDICATIONS ARE: Furosemide, omeprazole, Prolia, Seroquel, Xanax. ALLERGIES: ALLERGIES ARE LAMICTAL, ATORVASTATIN, CORTISONE. SOCIAL HISTORY: Patient smokes half pack cigarettes daily. PHYSICAL EXAMINATION: Evaluation of the left knee for range of motion is -2/3 to 100 degrees. Mild effusion. Tenderness along the medial lateral joint lines. Positive medial Colleen's. Positive lateral Colleen's. Ligaments stable. Crepitus along the medial lateral patellofemoral compartments. Hip rotation without pain. Distal neurovascular exam intact. RADIOGRAPHS: Radiographs of the left knee reveals some osteoarthritic changes. Left knee MRI revealed medial meniscal tear. IMPRESSION: Internal derangement, left knee with medial meniscal tear. PLAN: Left knee arthroscopy with partial meniscectomy and debridement. Surgery scheduled for 02/07/2018. MMODL / IJN: [id number] /
[~2018-02-07 09:49] MED LIST changes: +DEXAMETHASONE SOD PHOSPHATE 10 MG/ML 1 ML VIAL IV ONE; +LIDOCAINE 1% 20 ML VIAL (10MG/ML) FOR IV START INTRADERMA PRN; +ONDANSETRON 4 MG/2 ML VIAL IVP ONE; -SCOPOLAMINE 1.5MG/72HR PATCH TRANSDERM ONE; -TRANEXAMIC ACID 1,000 MG in SODIUM CHLORIDE 0.9% 50 ML IVPB ONE; -fentaNYL (PF) 50 MCG/ML 20 ML VIAL IVP PRN
[2018-02-07 10:37] VITALS: RESP 16
[2018-02-07] MEDS: LACTATED RINGERS 1,000 ML IV SCH ×2 (11:05→12:13)
[2018-02-07] MEDS ORDERED: LIDOCAINE 1% INJ 10MG/ML (20 ML MDV) ONE (12:13)
[2018-02-07] MEDS ORDERED: SUCCINYLCHOLINE CHLORIDE 100 MG/5 ML SYR IV ONE (12:13)
[2018-02-07] MEDS ORDERED: MIDAZOLAM 2 MG/2 ML VIAL ONE (12:13)
[2018-02-07] MEDS ORDERED: PROPOFOL 10 MG/ML 20 ML VIAL IV ONE (12:13)
[2018-02-07] MEDS ORDERED: fentaNYL (PF) 50 MCG/ML 2 ML AMP ONE (12:13)
[2018-02-07] MEDS ORDERED: BUPIVACAIN-EPI 0.25%-1:200,000 30 ML VIAL INTRAARTIC ONE (12:23)
[2018-02-07 13:13] VITALS: TEMP 97
--- NOTE | 2018-02-07 13:24 | P.OP ---
Date of Procedure: 02/07/18 Preoperative Diagnosis: Internal derangement left knee Postoperative Diagnosis: 1. Tear medial and lateral meniscus left knee 2. Grade 2/3 chondromalacia medial femoral condyle left knee 3. Grade 2 chondromalacia patella left knee 4. Reactive synovitis medial and suprapatellar compartments left knee Procedure(s) Performed: 1. Arthroscopic partial medial and lateral meniscectomy left knee 2. Arthroscopic chondroplasty medial femoral condyle left knee 3. Arthroscopic chondroplasty patella left knee 4. Arthroscopic partial synovectomy medial and suprapatellar compartments left knee Anesthesia: KATARINAA, local Surgeon: Brian Snow Estimated Blood Loss (ml): 6 Pathology: none sent Condition: stable Disposition: PACU Indications for Procedure: 62-year-old patient seen with progressive left knee pain. After treatment options were discussed, she elected to proceed with arthroscopy. Operative Findings: see description of procedure Description of Procedure: Patient was taken to the operative suite. Patient underwent a general anesthetic by the department of anesthesia. Patient was given preoperative antibiotics. The left lower extremity was placed in a well-padded arthroscopic leg pina. The left leg was prepped and draped in the normal sterile orthopedic fashion. A lateral parapatellar and suprapatellar incision was made. Trochars were inserted. Arthroscopy was initiated. Suprapatellar pouch revealed diffuse thick reactive synovitis. The patellofemoral joint appeared to articulate congruently. There was grade 2 chondromalacia with some osteochondral tears present. The scope was guided into the medial gutter. No loose bodies or plica were identified. The scope was then guided into the medial compartment. A medial parapatellar incision was made. Trocar inserted followed by probe. There was a radial tear posterior horn medial meniscus. There were grade 2/3 chondromalacia changes medial femoral condyle with some osteochondral tears present. There was reactive synovitis anteriorly. I performed a partial medial meniscectomy down to stable tissue. I performed a chondroplasty of the medial femoral condyle down to stable tissue. I performed a partial synovectomy decompressing the reactive synovitis. The residual meniscus was stable. The residual osteochondral surface was stable. There was good decompression of the synovitis. Scope and probe were then guided into the intercondylar notch. Cruciates were identified, probed and found to be stable. The scope and probe were then guided into lateral compartment. There was a radial tear anterior horn lateral meniscus. There was no chondromalacia present. There was no synovitis present. I performed a partial lateral meniscectomy down to stable tissue. The residual meniscus was stable. The scope was in guided back into the suprapatellar compartment. I introduced a motorized shaver into the super patellar compartment. I performed a chondroplasty of the patella down to stable tissue. I performed a partial synovectomy. The shaver was removed. I took one more look on the entire knee, no residual debris. Instruments were now removed from the joint. The joint was infiltrated with .25% Marcaine. Steri-Strips were applied to the portal sites. Sterile dressings were applied. The patient was placed into a NEETU hose. No tourniquet was utilized. The patient was awakened, transferred to a bed and taken to recovery stable satisfactory condition.
[2018-02-07] MEDS: fentaNYL (PF) 50 MCG/ML 2 ML AMP IV PRN ×2 (13:43→13:48)
[2018-02-07] MEDS ORDERED: HYDROcodone/APAP 5-325MG 1 EACH TAB PO ONE (14:28)
[2018-02-07 14:56] VITALS: BP 115/74; PULSE 99
== END 2018-02-07 15:20 | disposition home or self-care (01) ==
LOC: OR 09:49
PROVIDERS: ATTEND Orthopaedic Surgery
DX: M23.322 Other meniscus derangements, posterior horn of medial meniscus, left knee (principal); M23.342 Other meniscus derangements, anterior horn of lateral meniscus, left knee; M65.862 Other synovitis and tenosynovitis, left lower leg; M22.42 Chondromalacia patellae, left knee; M93.862 Other specified osteochondropathies, left lower leg; K21.9 Gastro-esophageal reflux disease without esophagitis; F31.9 Bipolar disorder, unspecified; J44.9 Chronic obstructive pulmonary disease, unspecified; E78.5 Hyperlipidemia, unspecified; F41.9 Anxiety disorder, unspecified; M19.90 Unspecified osteoarthritis, unspecified site; Z88.8 Allergy status to other drugs, medicaments and biological substances; F17.210 Nicotine dependence, cigarettes, uncomplicated; Z79.899 Other long term (current) drug therapy; Z96.642 Presence of left artificial hip joint; Z86.73 Personal history of transient ischemic attack (TIA), and cerebral infarction without residual deficits
CPT/HCPCS: 29880; 84132; J2250; J1100; J2405; J2001; J3010; J0330; J2704; J0690

== ENCOUNTER → 2018-02-22 | Outpatient (CLI) | payer MEDICARE ==
[2018-02-23 02:22] LABS: Albumin 4.6 g/dL (3.80-4.90); Albumin/Globulin Ratio 2.56 (1.20-2.10); Anion Gap 6.9 mmol/L (4.00-12.00); Calcium 9.7 mg/dL (8.7-10.3); Carbon Dioxide 27.1 mmol/L (21.6-31.8); Globulin 1.8 g/dL (2.1-3.7); Potassium 3.4 mmol/L (3.5-5.5); Total Bilirubin 0.2 mg/dL (0.3-1.2); Total Protein 6.4 g/dL (6.2-8.2)
== END | disposition home or self-care (01) ==
LOC: LABWHC1 15:13
PROVIDERS: ATTEND Internal Medicine Endocrinology, Diabetes & Metabolism
DX: M81.0 Age-related osteoporosis without current pathological fracture (principal)
CPT/HCPCS: 36415; 80053; 82306; 82523; 84443

== ENCOUNTER → 2018-03-21 | Outpatient (CLI) | payer MEDICARE ==
--- NOTE | 2018-03-22 01:51 | MR ---
EXAMINATION TYPE: MR lumbar spine wo con DATE OF EXAM: 03/21/2018 COMPARISON: 04/19/2012 HISTORY: LBP, radiates into lt hip, began after hip surgery 2017 TECHNIQUE: Multiplanar, multisequence images of the lumbar spine were acquired. The lumbar vertebra have fairly normal alignment. Disc spaces are normal for age. There is sacral cys t at S1-S2 level. There is no spinal stenosis. The lumbar neural foramina are fairly well-maintained. There is no spinal stenosis. Sacroiliac joints are intact. I see no bony destructive process. There is no lumbar paraspinal mass. IMPRESSION: Negative MR scan of the lumbar spine. No lumbar disc herniation or spinal stenosis. No fracture. No a dverse change compared to old exam.
== END | disposition home or self-care (01) ==
LOC: RADMRIMAIN 20:50
PROVIDERS: ATTEND Orthopaedic Surgery
DX: M54.5 Low back pain (principal)
CPT/HCPCS: 72148

== ENCOUNTER → 2018-03-28 | Outpatient (CLI) | payer MEDICARE ==
--- NOTE | 2018-03-28 07:58 | MR ---
EXAMINATION TYPE: MR hip LT wo con DATE OF EXAM: 03/28/2018 COMPARISON: Outside left hip x-ray March 05, 2018 HISTORY: Left hip pain, history of hip replacement September 2017. Standard multiplanar, multisequence MRI departmental protocol Multiplanar, multisequence images of the pelvis focusing on left hip were acquired. FINDINGS: Artifact from metallic hardware related to prosthesis noted on images obtained. Further mason ging not performed as essentially will be nondiagnostic due to susceptibility artifact. Exam is termi nated. IMPRESSION: As above, orthopedic reevaluation recommended if not performed.
== END | disposition home or self-care (01) ==
LOC: RADMRIMAIN 07:01
PROVIDERS: ATTEND Family Medicine
DX: M25.552 Pain in left hip (principal); M79.652 Pain in left thigh; Z96.642 Presence of left artificial hip joint

== ENCOUNTER 2018-04-27 20:44 | Emergency (ER) | payer MEDICARE ==
[2018-04-27 20:52] VITALS: TEMP 97.8
[2018-04-27] MEDS ORDERED: IPRATROPIUM-ALBUTEROL 3 ML NEB INHALATION STA (21:21)
[2018-04-27] MEDS ORDERED: ALBUTEROL NEBULIZED 2.5 MG/3 ML INHALATION STA ×2 (21:21→23:26)
--- NOTE | 2018-04-27 21:27 | ED ---
SOB HPI - General Chief Complaint: Shortness of Breath Stated Complaint: Cough Time Seen by Provider: 04/27/18 21:09 Source: patient Mode of arrival: wheelchair Limitations: no limitations - History of Present Illness MD Complaint: shortness of breath, cough Onset/Timin -: days(s) Consistency: constant Improves With: nothing Worsens With: nothing Treatments Prior to Arrival: other (NyQuil) - Related Data Home Oxygen Therapy: No Home Medications Medication Instructions Recorded Confirmed Desvenlafaxine Succinate [Pristiq] 50 mg PO HS 07/23/16 02/28/18 QUEtiapine FUMARATE [SEROquel] 300 mg PO HS 09/18/17 02/28/18 Topiramate 50 mg PO BID 09/18/17 02/28/18 ALPRAZolam [Xanax] 0.25 mg PO BID PRN 02/04/18 02/28/18 Aspirin [Adult Low Dose Aspirin EC] 81 mg PO HS 02/04/18 02/28/18 Ergocalciferol (Vitamin D2) 50,000 unit PO NAVARRETE 02/04/18 02/28/18 [Vitamin D2] Furosemide [Lasix] 20 mg PO DAILY 02/04/18 02/28/18 Multivitamins, Thera [Multivitamin 1 tab PO DAILY 02/04/18 02/28/18 (formulary)] Meloxicam 15 mg PO DAILY 02/28/18 02/28/18 Previous Rx's Medication Instructions Recorded Atorvastatin Calcium [Lipitor] 10 mg PO HS #30 tab 07/25/16 Albuterol Inhaler [Ventolin Hfa 1 - 2 puff INHALATION Q6HR PRN #1 04/27/18 Inhaler] inhaler predniSONE 20 mg PO BID #8 tab 04/27/18 Allergies Allergy/AdvReac Type Severity Reaction Status Date / Time lamotrigine [From Lamictal] Allergy Rash/Hives Verified 04/27/18 20:53 Review of Systems ROS Statement: Those systems with pertinent positive or pertinent negative responses have been documented in the HPI. ROS Other: All systems not noted in ROS Statement are negative. Constitutional: Denies: fever, chills Respiratory: Reports: cough, wheezes Cardiovascular: Denies: chest pain, palpitations, orthopnea, edema, syncope Gastrointestinal: Denies: abdominal pain, vomiting, diarrhea Genitourinary: Denies: dysuria, hematuria Musculoskeletal: Denies: back pain Skin: Denies: rash Neurological: Denies: headache Past Medical History Past Medical History: COPD, CVA/TIA, Osteoarthritis (OA), Thyroid Disorder Additional Past Medical History / Comment(s): TIA 2015- no residual effects, "parathyroid problems" History of Any Multi-Drug Resistant Organisms: None Reported Past Surgical History: Adenoidectomy, Joint Replacement, Tonsillectomy Additional Past Surgical History / Comment(s): BILATERAL CATARACT, left hip replacement, deviated septum, rt shoulder rotator cuff then additional surgery on rt shoulder Past Anesthesia/Blood Transfusion Reactions: No Reported Reaction Past Psychological History: Anxiety, Bipolar, Depression, Panic Disorder Smoking Status: Current every day smoker Past Alcohol Use History: Occasional Past Drug Use History: None Reported - Past Family History Mother Family Medical History: Congestive Heart Failure (CHF) Additional Family Medical History / Comment(s): Mother at age 84 from old age. Father Family Medical History: Pulmonary Embolus Additional Family Medical History / Comment(s): Father at age 60 from pulmonary embolism. Brother(s) Additional Family Medical History / Comment(s): She has 2 brothers and one has multiple medical problems which she does not know details other than retinal detachment. Sister(s) Additional Family Medical History / Comment(s): She has one sister with history of sinus problems and migraine headaches. Son(s) Family Medical History: No Reported History Additional Family Medical History / Comment(s): She has 2 sons are healthy. General Exam Limitations: no limitations General appearance: alert, in no apparent distress Head exam: Present: atraumatic, normocephalic Eye exam: Present: normal appearance Respiratory exam: Present: wheezes, other (Frequent cough). Absent: respiratory distress, rales, rhonchi, stridor, accessory muscle use, decreased breath sounds Cardiovascular Exam: Present: regular rate, normal rhythm, normal heart sounds. Absent: systolic murmur, diastolic murmur, rubs, gallop GI/Abdominal exam: Present: soft. Absent: distended, tenderness, guarding, rebound Extremities exam: Present: normal inspection, normal capillary refill. Absent: pedal edema, calf tenderness Back exam: Present: normal inspection Neurological exam: Present: alert Skin exam: Present: warm, dry, intact, normal color. Absent: rash Course Vital Signs 04/27/18 04/27/18 04/27/18 20:49 21:35 21:50 Temperature 97.8 F Pulse Rate 91 92 96 Respiratory 25 H Rate Blood Pressure 137/71 O2 Sat by Pulse 99 Oximetry 04/27/18 04/27/18 22:00 23:00 Temperature Pulse Rate 96 96 Respiratory 22 22 Rate Blood Pressure 105/55 106/71 O2 Sat by Pulse 97 96 Oximetry Medical Decision Making - Lab Data Result diagrams: 04/27/18 22:00 04/27/18 22:00 Lab Results 04/27/18 04/27/18 04/27/18 Range/Units 21:40 22:00 22:00 WBC 6.4 (3.8-10.6) k/uL RBC 4.10 (3.80-5.40) m/uL Hgb 12.8 (11.4-16.0) gm/dL Hct 41.3 (34.0-46.0) % MCV 100.6 H (80.0-100.0) fL MCH 31.3 (25.0-35.0) pg MCHC 31.1 (31.0-37.0) g/dL RDW 13.3 (11.5-15.5) % Plt Count 241 (150-450) k/uL PT (9.0-12.0) sec INR (<1.2) APTT (22.0-30.0) sec Sodium (137-145) mmol/L Potassium (3.5-5.1) mmol/L Chloride (98-107) mmol/L Carbon Dioxide (22-30) mmol/L Anion Gap mmol/L BUN (7-17) mg/dL Creatinine (0.52-1.04) mg/dL Est GFR (CKD-EPI)AfAm (>60 ml/min/1.73 sqM) Est GFR (CKD-EPI)NonAf (>60 ml/min/1.73 sqM) Glucose (74-99) mg/dL Calcium (8.4-10.2) mg/dL Total Bilirubin (0.2-1.3) mg/dL AST (14-36) U/L ALT (9-52) U/L Alkaline Phosphatase (38-126) U/L Total Creatine Kinase 69 (30-135) U/L CK-MB (CK-2) 0.8 (0.0-2.4) ng/mL CK-MB (CK-2) Rel Index 1.2 Troponin I <0.012 (0.000-0.034) ng/mL Total Protein (6.3-8.2) g/dL Albumin (3.5-5.0) g/dL Influenza Type A RNA Not Detected (Not Detectd) Influenza Type B (PCR) Not Detected (Not Detectd) 04/27/18 04/27/18 Range/Units 22:00 22:00 WBC (3.8-10.6) k/uL RBC (3.80-5.40) m/uL Hgb (11.4-16.0) gm/dL Hct (34.0-46.0) % MCV (80.0-100.0) fL MCH (25.0-35.0) pg MCHC (31.0-37.0) g/dL RDW (11.5-15.5) % Plt Count (150-450) k/uL PT 9.5 (9.0-12.0) sec INR 0.9 (<1.2) APTT 22.5 (22.0-30.0) sec Sodium 136 L (137-145) mmol/L Potassium 2.9 L (3.5-5.1) mmol/L Chloride 100 (98-107) mmol/L Carbon Dioxide 24 (22-30) mmol/L Anion Gap 12 mmol/L BUN 11 (7-17) mg/dL Creatinine 0.72 (0.52-1.04) mg/dL Est GFR (CKD-EPI)AfAm >90 (>60 ml/min/1.73 sqM) Est GFR (CKD-EPI)NonAf >90 (>60 ml/min/1.73 sqM) Glucose 121 H (74-99) mg/dL Calcium 8.8 (8.4-10.2) mg/dL Total Bilirubin 0.2 (0.2-1.3) mg/dL AST 30 (14-36) U/L ALT 27 (9-52) U/L Alkaline Phosphatase 95 (38-126) U/L Total Creatine Kinase (30-135) U/L CK-MB (CK-2) (0.0-2.4) ng/mL CK-MB (CK-2) Rel Index Troponin I (0.000-0.034) ng/mL Total Protein 6.5 (6.3-8.2) g/dL Albumin 4.1 (3.5-5.0) g/dL Influenza Type A RNA (Not Detectd) Influenza Type B (PCR) (Not Detectd) - EKG Data -: EKG Interpreted by Me EKG shows normal: sinus rhythm, axis (Normal), intervals (VT interval is 110 ms , short. QRS duration 88 ms, QTC 462 ms. Both normal), QRS complexes (Normal) , ST-T waves (Normal) Rate: normal (Rate 91 bpm) Disposition Clinical Impression: Acute exacerbation of chronic obstructive airways disease Disposition: HOME SELF-CARE Condition: Good Instructions: COPD (Chronic Obstructive Pulmonary Disease) (ED) Prescriptions: Albuterol Inhaler [Ventolin Hfa Inhaler] 1 - 2 puff INHALATION Q6HR PRN #1 inhaler PRN Reason: Wheezing predniSONE 20 mg PO BID #8 tab Is patient prescribed a controlled substance at d/c from ED?: No Referrals: Laura Milan MD [Primary Care Provider] - 1-2 days
[2018-04-27] MEDS ORDERED: PROMETHAZINE HCL 6.25 MG/5 ML CUP PO STA (21:28)
--- NOTE | 2018-04-27 21:37 | XR ---
EXAMINATION TYPE: XR chest 2V DATE OF EXAM: 04/27/2018 COMPARISON: Prior chest x-ray 02/22/2017 HISTORY: Difficulty breathing TECHNIQUE: Frontal and lateral views of the chest are obtained. FINDINGS: There is no focal air space opacity, pleural effusion, or pneumothorax seen. The cardiac silhouette size is within normal limits. The osseous structures are intact, stable postop changes t o the proximal right humerus. Prominent lung volumes suggest underlying COPD. IMPRESSION: No acute cardiopulmonary process.
[2018-04-27 22:33] LABS: ALT 27 U/L (9-52); AST 30 U/L (14-36); Albumin 4.1 g/dL (3.5-5.0); Alkaline Phosphatase 95 U/L (38-126); Anion Gap 12 mmol/L; Blood Urea Nitrogen 11 mg/dL (7-17); Calcium 8.8 mg/dL (8.4-10.2); Carbon Dioxide 24 mmol/L (22-30); Chloride 100 mmol/L (98-107); Glucose 121 mg/dL (74-99); Potassium 2.9 mmol/L (3.5-5.1); Sodium 136 mmol/L (137-145); Total Bilirubin 0.2 mg/dL (0.2-1.3); Total Protein 6.5 g/dL (6.3-8.2)
[2018-04-27 22:47] LABS: HCT 41.3 % (34.0-46.0); HGB 12.8 gm/dL (11.4-16.0); MCH 31.3 pg (25.0-35.0); MCHC 31.1 g/dL (31.0-37.0); MCV 100.6 fL (80.0-100.0); Mean Platelet Volume 6.4; Platelet Count 241 k/uL (150-450); RDW 13.3 % (11.5-15.5); WBC 6.4 k/uL (3.8-10.6)
[2018-04-27 22:49] LABS: Creatine Kinase 69 U/L (30-135)
[2018-04-27 22:50] LABS: INR 0.9 (<1.2); Partial Thromboplastin Time 22.5 sec (22.0-30.0); Prothrombin Time 9.5 sec (9.0-12.0)
[2018-04-27] MEDS ORDERED: predniSONE 20 MG TAB PO STA (22:55)
[2018-04-27] MEDS ORDERED: POTASSIUM CHLORIDE ER 20 MEQ TAB.ER PO STA (22:55)
[2018-04-27 23:02] LABS: Creatine Kinase MB 0.8 ng/mL (0.0-2.4); Troponin I <0.012 ng/mL (0.000-0.034)
[2018-04-27] MEDS ORDERED: Acetaminophen-Codeine 300-30mg TAB PO STA (23:25)
[2018-04-27 23:39] LABS: Band Neutrophils % 2 %; Eosinophils # (M) 0.13 k/uL (0-0.7); Lymphocytes # (M) 3.14 k/uL (1.0-4.8); Monocytes # (M) 0.51 k/uL (0-1.0); Neutrophils % (M) 39 %; Nucleated Red Blood Cells 0 /100 WBC (0-0); Total Cells Counted 100
[2018-04-28 00:56] VITALS: BP 101/55; PULSE 95; RESP 18
== END 2018-04-28 00:55 | disposition home or self-care (01) ==
LOC: EC 20:44
DX: J44.1 Chronic obstructive pulmonary disease with (acute) exacerbation (principal); M19.90 Unspecified osteoarthritis, unspecified site; F32.9 Major depressive disorder, single episode, unspecified; F17.200 Nicotine dependence, unspecified, uncomplicated; Z86.73 Personal history of transient ischemic attack (TIA), and cerebral infarction without residual deficits; Z82.49 Family history of ischemic heart disease and other diseases of the circulatory system; Z96.642 Presence of left artificial hip joint; Z79.82 Long term (current) use of aspirin; Z79.1 Long term (current) use of non-steroidal anti-inflammatories (NSAID); Z79.899 Other long term (current) drug therapy; Z88.8 Allergy status to other drugs, medicaments and biological substances
CPT/HCPCS: 36415; 94640 ×2; 93005; 80053; 82550; 82553; 84484; 85025; 85610; 85730; 87502; 71046; 99285; J7512

== ENCOUNTER → 2018-08-27 | Outpatient (CLI) | payer MEDICARE ==
[2018-08-28 04:10] LABS: Albumin 4.2 g/dL (3.80-4.90); Albumin/Globulin Ratio 2.63 (1.60-3.17); Calcium 9.1 mg/dL (8.7-10.3); Globulin 1.6 g/dL (1.6-3.3); Parathyroid Hormone Intact 71.4 pg/mL (14.0-72.0); Potassium 3.4 mmol/L (3.5-5.5); Total Bilirubin 0.3 mg/dL (0.3-1.2); Total Protein 5.8 g/dL (6.2-8.2)
== END | disposition home or self-care (01) ==
LOC: LABWHC1 15:40
PROVIDERS: ATTEND Internal Medicine Endocrinology, Diabetes & Metabolism
DX: M81.0 Age-related osteoporosis without current pathological fracture (principal)
CPT/HCPCS: 36415; 80053; 82306; 82523; 83970; 84443

== ENCOUNTER → 2018-09-17 | Outpatient (CLI) | payer BC, MEDICARE, OTHER ==
--- NOTE | 2018-09-17 14:16 | US ---
EXAMINATION TYPE: US carotid duplex BILAT DATE OF EXAM: 09/17/2018 COMPARISON: US CLINICAL HISTORY: I65.23 Occlusion and stenosis of unspecified carot. EXAM MEASUREMENTS: RIGHT: Peak Systolic Velocity (PSV) cm/sec ----- Right CCA: 87.5 ----- Right ICA: 110.8 ----- Right ECA: 77.6 ICA/CCA ratio: 1.3 RIGHT: End Diastole cm/sec ----- Right CCA: 38.0 ----- Right ICA: 50.0 ----- Right ECA: 23.7 LEFT: Peak Systolic Velocity (PSV) cm/sec ----- Left CCA: 79.9 ----- Left ICA: 123.7 ----- Left ECA: 72.1 ICA/CCA ratio: 1.5 LEFT: End Diastole cm/sec ----- Left CCA: 27.6 ----- Left ICA: 47.4 ----- Left ECA: 13.6 VERTEBRALS (direction of flow): Right Vertebral: Antegrade Left Vertebral: Antegrade Rhythm: Normal No significant velocity elevations, bilateral plaque at bulbs, left greater than right. Grayscale, color Doppler, spectral Doppler imaging performed of the carotid arteries. Waveform analys is does not show significant stenosis of the internal carotid arteries. IMPRESSION: No hemodynamic significant stenosis of the proximal internal carotid arteries by Doppler criteria, an indirect measurement of carotid stenosis
== END | disposition home or self-care (01) ==
LOC: RADUSWWP 12:51
PROVIDERS: ATTEND Family Medicine
DX: I65.29 Occlusion and stenosis of unspecified carotid artery (principal)
CPT/HCPCS: 93880

== ENCOUNTER → 2018-12-04 | Outpatient (CLI) | payer MEDICARE ==
[2018-12-05 00:46] LABS: African American GFR (CKD) 61.9 (60.0-200.0); Calcium 9.8 mg/dL (8.7-10.3); Potassium 3.7 mmol/L (3.5-5.5)
== END | disposition home or self-care (01) ==
LOC: LABWHC1 16:17
PROVIDERS: ATTEND Psychiatry & Neurology Psychiatry
DX: F31.60 Bipolar disorder, current episode mixed, unspecified (principal); Z79.899 Other long term (current) drug therapy
CPT/HCPCS: 36415; 80048

== ENCOUNTER → 2019-03-24 | Outpatient (CLI) | payer MEDICARE ==
[2019-03-25 00:59] LABS: African American GFR (CKD) 90.9 (60.0-200.0); Albumin 4.5 g/dL (3.80-4.90); Albumin/Globulin Ratio 2.5 (1.60-3.17); Anion Gap 9.1 mmol/L (4.00-12.00); BUN/Creat Ratio 16.25 Ratio (12.00-20.00); Calcium 9.5 mg/dL (8.7-10.3); Carbon Dioxide 26.9 mmol/L (21.6-31.8); Globulin 1.8 g/dL (1.6-3.3); Non-African American GFR(CKD) 78.5 (60.0-200.0); Potassium 3.1 mmol/L (3.5-5.5); Total Bilirubin 0.4 mg/dL (0.3-1.2); Total Protein 6.3 g/dL (6.2-8.2)
[2019-03-27 18:42] LABS: Creatinine Urine Random 39 mg/dL (20-275); N-Telopeptides/Creat Ratio, Ur 66
== END | disposition home or self-care (01) ==
LOC: LABWHC1 14:30
PROVIDERS: ATTEND Internal Medicine Endocrinology, Diabetes & Metabolism
DX: M81.0 Age-related osteoporosis without current pathological fracture (principal)
CPT/HCPCS: 36415; 80053; 82523; 83970

== ENCOUNTER → 2019-03-27 | Outpatient (CLI) | payer MEDICARE ==
--- NOTE | 2019-03-27 13:56 | BD ---
EXAMINATION TYPE: Axial Bone Density DATE OF EXAM: 03/27/2019 COMPARISON: 10.20.2015 CLINICAL HISTORY: 63 YR OLD FEMALE....ICD-10 CODE: M89.9 DISORDER OF BONE Height: 58.6 Weight: 99 FRAX RISK QUESTIONS: Family History (Parent hip fracture): YES History of Fracture in Adulthood: YES Current Tobacco Use: YES HYPERPARATHYROID...YES SECONDARY OSTEOPOROSIS...YES RISK FACTORS HISTORY OF: HX OF RT ANKLE, >50 YRS OLD Surgery to LT HIP....THR, 2 YRS AGO Family History of Osteoporosis: YES, HER GRANDMOTHER AND MOTHER WITH FXs Diet low in dairy products/other sources of calcium: YES Postmenopausal woman: YES, AT AGE 52 Hyperparathyroidism: YES Adrenal Insufficiency: NO MEDICATIONS: Osteoporosis Medications: YES, FOSAMAX, FOR ABOUT 1-2 YRS Additional Medications: PRISTIQ, SEROQUEL, XANAX, REFLUX MEDS, VIT D AND CALCIUM Additional History: DEPRESSION, REFLUX, OSTEOARTHRITIS EXAM MEASUREMENTS: Bone mineral densitometry was performed using the [employer] System. Bone mineral density as measured about the Lumbar spine is: ----- L1-L4(G/cm2): 0.906 T Score Values are as follows: ----- L1: -3.0 ----- L2: -3.4 ----- L3: -2.3 ----- L4: -1.0 ----- L1-L4: -2.3 Bone mineral density has: Increased 3.9% since study of: 10.20.2015 Bone mineral density about the R hip (g/cm2): 0.751 T Score values are as follows: -----R Neck: -2.7 -----R Total: -2.0 Bone mineral density has: Increased 0.5% since study of: 10.20.2015 FRAX%s: THERE IS A 35.3% CHANCE FOR A MAJOR OSTEOPOROTIC FX AND A 8.9% FOR HIP.....PROBABILITY FOR FX IN 10 YRS TIME IMPRESSION: Osteopenia lumbar spine and right hip. NOTE: T-SCORE=SD OF THE YOUNG ADULT MEAN.
== END | disposition home or self-care (01) ==
LOC: RADBDWWP 09:19
PROVIDERS: ATTEND Family Medicine
DX: M85.89 Other specified disorders of bone density and structure, multiple sites (principal)
CPT/HCPCS: 77080

== ENCOUNTER → 2019-04-08 | Outpatient (CLI) | payer MEDICARE ==
[2019-04-08 16:25] LABS: Anion Gap 5.6 mmol/L (4.00-12.00); Carbon Dioxide 25.4 mmol/L (21.6-31.8); Potassium 3.7 mmol/L (3.5-5.5)
== END | disposition home or self-care (01) ==
LOC: LABWHC1 11:39
PROVIDERS: ATTEND Family Medicine
DX: E87.6 Hypokalemia (principal)
CPT/HCPCS: 36415; 80051

== ENCOUNTER → 2019-04-25 | Outpatient (CLI) | payer MEDICARE ==
[2019-04-25 18:09] LABS: Anion Gap 7.7 mmol/L (4.00-12.00); Carbon Dioxide 24.3 mmol/L (21.6-31.8); Potassium 3.4 mmol/L (3.5-5.5)
== END | disposition home or self-care (01) ==
LOC: LABWHC1 09:27
PROVIDERS: ATTEND Psychiatry & Neurology Psychiatry
DX: E87.6 Hypokalemia (principal)
CPT/HCPCS: 36415; 80051

== ENCOUNTER 2019-05-11 23:16 | Inpatient (IN) | payer MEDICARE ==
--- NOTE | 2019-05-12 01:15 | ED ---
General Adult HPI - General Source: patient Mode of arrival: ambulatory Limitations: no limitations <Loyd Green - Last Filed: 05/12/19 01:38> <Caio Juan - Last Filed: 05/12/19 08:44> - General Chief complaint: Psychiatric Symptoms Stated complaint: Petition Time Seen by Provider: 05/12/19 00:35 - History of Present Illness Initial comments: Dictation was produced using [employer] dictation software. please excuse any grammatical, word or spelling errors. Chief Complaint: 63-year-old female past medical history of COPD, alcohol abuse presents with suicidal ideation. History of Present Illness: 63-year-old female she is brought in by law enforcement for suicidal ideation. Patient allegedly called law enforcement because she was feeling suicidal. She was brought in by [place] [employer]. She states she's been having issues with her . allegedly is one who administers her medications. She is on multiple controlled substances. She states that she wanted to kill herself. Patient had multiple alcoholic beverages today. She threatened to take a bunch of her Xanax pills all at once however law enforcement prevented her from doing so. Patient has any medical complaints at this time. However, she is a poor historian. The ROS documented in this emergency department record has been reviewed and confirmed by me. Those systems with pertinent positive or negative responses have been documented in the HPI. All other systems are other negative and/or noncontributory. PHYSICAL EXAM: General Impression not in acute distress, sleepy, arousable HEENT: Normocephalic atraumatic, extra-ocular movements intact, pupils equal and reactive to light bilaterally, mucous membranes moist. Cardiovascular: Heart regular rate and rhythm, S1&S2 audible, no murmurs, rubs or gallops Chest: Lungs clear to auscultation bilaterally, no rhonchi, no wheeze, no rales Abdomen: Bowel sounds present, abdomen soft, non-tender, non-distended, no organomegaly Musculoskeletal: Pulses present and equal in all extremities, no peripheral edema Motor: no focal deficits noted Neurological: CN II-XII grossly intact, no focal motor or sensory deficits noted Skin: Intact with no visualized rashes ED course: 63-year-old female presents with suicidal ideation. Signs upon a rrival are within acceptable limits. Patient allegedly was drinking alcohol today. She sleepy at bedside however arousable. She denies any medical complaints. Labs ordered for medical clearance that she will need EPS evaluation. Return evaluation obtained for medical clearance. She gets out to Dr. Chaves for follow-up of lab studies and EPS reccommendations (Lyod Green) - Related Data Home Medications Medication Instructions Recorded Confirmed Desvenlafaxine Succinate [Pristiq] 50 mg PO HS 07/23/16 02/28/18 QUEtiapine FUMARATE [SEROquel] 300 mg PO HS 09/18/17 02/28/18 Topiramate 50 mg PO BID 09/18/17 02/28/18 ALPRAZolam [Xanax] 0.25 mg PO BID PRN 02/04/18 02/28/18 Aspirin [Adult Low Dose Aspirin EC] 81 mg PO HS 02/04/18 02/28/18 Ergocalciferol (Vitamin D2) 50,000 unit PO NAVARRETE 02/04/18 02/28/18 [Vitamin D2] Furosemide [Lasix] 20 mg PO DAILY 02/04/18 02/28/18 Multivitamins, Thera [Multivitamin 1 tab PO DAILY 02/04/18 02/28/18 (formulary)] Meloxicam 15 mg PO DAILY 02/28/18 02/28/18 Previous Rx's Medication Instructions Recorded Atorvastatin Calcium [Lipitor] 10 mg PO HS #30 tab 07/25/16 Albuterol Inhaler [Ventolin Hfa 1 - 2 puff INHALATION Q6HR PRN #1 04/27/18 Inhaler] inhaler predniSONE [Deltasone] 20 mg PO BID #8 tab 04/27/18 Allergies Allergy/AdvReac Type Severity Reaction Status Date / Time lamotrigine [From Lamictal] Allergy Rash/Hives Verified 05/11/19 23:36 Review of Systems ROS Other: All systems not noted in ROS Statement are negative. <Loyd Green - Last Filed: 05/12/19 01:38> ROS Other: All systems not noted in ROS Statement are negative. <Caio Juan - Last Filed: 05/12/19 08:44> ROS Statement: Those systems with pertinent positive or pertinent negative responses have been documented in the HPI. Past Medical History Past Medical History: COPD, CVA/TIA, Osteoarthritis (OA), Thyroid Disorder Additional Past Medical History / Comment(s): TIA 2016- no residual effects, "parathyroid problems" History of Any Multi-Drug Resistant Organisms: None Reported Past Surgical History: Adenoidectomy, Joint Replacement, Tonsillectomy Additional Past Surgical History / Comment(s): BILATERAL CATARACT, left hip replacement, deviated septum, rt shoulder rotator cuff then additional surgery on rt shoulder Past Anesthesia/Blood Transfusion Reactions: No Reported Reaction Past Psychological History: Anxiety, Bipolar, Depression, Panic Disorder Smoking Status: Current every day smoker Past Alcohol Use History: Occasional Past Drug Use History: None Reported - Past Family History Mother Family Medical History: Congestive Heart Failure (CHF) Additional Family Medical History / Comment(s): Mother at age 84 from old age. Father Family Medical History: Pulmonary Embolus Additional Family Medical History / Comment(s): Father at age 60 from pulmo nary embolism. Brother(s) Additional Family Medical History / Comment(s): She has 2 brothers and one has multiple medical problems which she does not know details other than retinal detachment. Sister(s) Additional Family Medical History / Comment(s): She has one sister with history of sinus problems and migraine headaches. Son(s) Family Medical History: No Reported History Additional Family Medical History / Comment(s): She has 2 sons are healthy. <Loyd Green - Last Filed: 05/12/19 01:38> General Exam Limitations: no limitations <Loyd Green - Last Filed: 05/12/19 01:38> Course Vital Signs 05/11/19 05/12/19 05/12/19 23:33 01:05 06:00 Temperature 97.9 F 97.6 F 98.2 F Pulse Rate 97 98 Respiratory 20 18 Rate Blood Pressure 115/70 129/73 O2 Sat by Pulse 95 92 L Oximetry 05/12/19 07:49 Temperature Pulse Rate 107 H Respiratory 18 Rate Blood Pressure 115/55 O2 Sat by Pulse 97 Oximetry EKG Findings - EKG Comments: EKG Findings:: Normal sinus rhythm 89. LA 120. QRS 74. QT 358. QTC 435. Normal axis. Normal QRS. No acute ST change. <Caio Juan - Last Filed: 05/12/19 08:44> Medical Decision Making - Lab Data Result diagrams: 05/12/19 02:20 05/12/19 02:20 <Caio Juan - Last Filed: 05/12/19 08:44> - Medical Decision Making Patient seen by mental health services with plans of admission. Patient reevaluated by myself, Dr. Juan. Patient has inconsistent history. Patient does admit to depression. Positive clinical certificate completed. (Caio Juan) - Lab Data Lab Results 05/12/19 05/12/19 05/12/19 Range/Units 02:20 02:20 05:20 WBC 9.5 (3.8-10.6) k/uL RBC 3.84 (3.80-5.40) m/uL Hgb 12.5 (11.4-16.0) gm/dL Hct 38.7 (34.0-46.0) % MCV 100.8 H (80.0-100.0) fL MCH 32.5 (25.0-35.0) pg MCHC 32.2 (31.0-37.0) g/dL RDW 13.9 (11.5-15.5) % Plt Count 263 (150-450) k/uL Neutrophils % 55 % Lymphocytes % 35 % Monocytes % 6 % Eosinophils % 2 % Basophils % 1 % Neutrophils # 5.2 (1.3-7.7) k/uL Lymphocytes # 3.3 (1.0-4.8) k/uL Monocytes # 0.6 (0-1.0) k/uL Eosinophils # 0.2 (0-0.7) k/uL Basophils # 0.1 (0-0.2) k/uL Macrocytosis Slight Sodium 133 L (137-145) mmol/L Potassium 2.9 L (3.5-5.1) mmol/L Chloride 98 (98-107) mmol/L Carbon Dioxide 24 (22-30) mmol/L Anion Gap 11 mmol/L BUN 7 (7-17) mg/dL Creatinine 0.67 (0.52-1.04) mg/dL Est GFR (CKD-EPI)AfAm >90 (>60 ml/min/1.73 sqM) Est GFR (CKD-EPI)NonAf >90 (>60 ml/min/1.73 sqM) Glucose 82 (74-99) mg/dL Calcium 8.6 (8.4-10.2) mg/dL Total Bilirubin 0.3 (0.2-1.3) mg/dL AST 27 (14-36) U/L ALT 14 (4-34) U/L Alkaline Phosphatase 84 (38-126) U/L Total Protein 6.1 L (6.3-8.2) g/dL Albumin 3.8 (3.5-5.0) g/dL Urine HCG, Qual (Not Detectd) Salicylates <1.0 mg/dL Urine Opiates Screen Not Detected (NotDetected) Ur Oxycodone Screen Not Detected (NotDetected) Urine Methadone Screen Not Detected (NotDetected) Ur Propoxyphene Screen Not Detected (NotDetected) Acetaminophen <10.0 ug/mL Ur Barbiturates Screen Not Detected (NotDetected) U Tricyclic Antidepress Detected H (NotDetected) Ur Phencyclidine Scrn Not Detected (NotDetected) Ur Amphetamines Screen Not Detected (NotDetected) U Methamphetamines Scrn Not Detected (NotDetected) U Benzodiazepines Scrn Detected H (NotDetected) Urine Cocaine Screen Not Detected (NotDetected) U Marijuana (THC) Screen Detected H (NotDetected) Serum Alcohol 78 mg/dL 05/12/19 Range/Units 05:20 WBC (3.8-10.6) k/uL RBC (3.80-5.40) m/uL Hgb (11.4-16.0) gm/dL Hct (34.0-46.0) % MCV (80.0-100.0) fL MCH (25.0-35.0) pg MCHC (31.0-37.0) g/dL RDW (11.5-15.5) % Plt Count (150-450) k/uL Neutrophils % % Lymphocytes % % Monocytes % % Eosinophils % % Basophils % % Neutrophils # (1.3-7.7) k/uL Lymphocytes # (1.0-4.8) k/uL Monocytes # (0-1.0) k/uL Eosinophils # (0-0.7) k/uL Basophils # (0-0.2) k/uL Macrocytosis Sodium (137-145) mmol/L Potassium (3.5-5.1) mmol/L Chloride (98-107) mmol/L Carbon Dioxide (22-30) mmol/L Anion Gap mmol/L BUN (7-17) mg/dL Creatinine (0.52-1.04) mg/dL Est GFR (CKD-EPI)AfAm (>60 ml/min/1.73 sqM) Est GFR (CKD-EPI)NonAf (>60 ml/min/1.73 sqM) Glucose (74-99) mg/dL Calcium (8.4-10.2) mg/dL Total Bilirubin (0.2-1.3) mg/dL AST (14-36) U/L ALT (4-34) U/L Alkaline Phosphatase (38-126) U/L Total Protein (6.3-8.2) g/dL Albumin (3.5-5.0) g/dL Urine HCG, Qual Not Detected (Not Detectd) Salicylates mg/dL Urine Opiates Screen (NotDetected) Ur Oxycodone Screen (NotDetected) Urine Methadone Screen (NotDetected) Ur Propoxyphene Screen (NotDetected) Acetaminophen ug/mL Ur Barbiturates Screen (NotDetected) U Tricyclic Antidepress (NotDetected) Ur Phencyclidine Scrn (NotDetected) Ur Amphetamines Screen (NotDetected) U Methamphetamines Scrn (NotDetected) U Benzodiazepines Scrn (NotDetected) Urine Cocaine Screen (NotDetected) U Marijuana (THC) Screen (NotDetected) Serum Alcohol mg/dL Disposition <Loyd Green - Last Filed: 05/12/19 01:38> Is patient prescribed a controlled substance at d/c from ED?: No Time of Disposition: 08:44 <Caio Juan - Last Filed: 05/12/19 08:44> Clinical Impression: Depression, Suicidal ideation Disposition: TRANSFER TO PSYCH HOSP/UNIT Referrals: Ruslan Nelson [Primary Care Provider] - 1-2 days
[2019-05-12 03:15] LABS: Basophils # (A) 0.1 k/uL (0-0.2); Basophils % (A) 1 %; Eosinophils # (A) 0.2 k/uL (0-0.7); Eosinophils % (A) 2 %; HCT 38.7 % (34.0-46.0); HGB 12.5 gm/dL (11.4-16.0); Lymphocytes # (A) 3.3 k/uL (1.0-4.8); Lymphocytes % (A) 35 %; MCH 32.5 pg (25.0-35.0); MCHC 32.2 g/dL (31.0-37.0); MCV 100.8 fL (80.0-100.0); Macrocytosis Slight; Mean Platelet Volume 7.4; Monocytes # (A) 0.6 k/uL (0-1.0); Monocytes % (A) 6 %; Neutrophils # (A) 5.2 k/uL (1.3-7.7); Neutrophils % (A) 55 %; Platelet Count 263 k/uL (150-450); RBC 3.84 m/uL (3.80-5.40); RDW 13.9 % (11.5-15.5); WBC 9.5 k/uL (3.8-10.6)
[2019-05-12 03:19] LABS: ALT 14 U/L (4-34); AST 27 U/L (14-36); Acetaminophen <10.0 ug/mL; African American GFR (CKD) >90 (>60 ml/min/1.73 sqM); Albumin 3.8 g/dL (3.5-5.0); Alcohol 78 mg/dL; Alkaline Phosphatase 84 U/L (38-126); Anion Gap 11 mmol/L; Blood Urea Nitrogen 7 mg/dL (7-17); Calcium 8.6 mg/dL (8.4-10.2); Carbon Dioxide 24 mmol/L (22-30); Chloride 98 mmol/L (98-107); Glucose 82 mg/dL (74-99); Non-African American GFR(CKD) >90 (>60 ml/min/1.73 sqM); Potassium 2.9 mmol/L (3.5-5.1); Salicylate <1.0 mg/dL; Sodium 133 mmol/L (137-145); Total Bilirubin 0.3 mg/dL (0.2-1.3); Total Protein 6.1 g/dL (6.3-8.2)
[2019-05-12] MEDS ORDERED: Potassium Replacement Protocol 1 EACH MISC MISCELLANE PRN (03:32)
[2019-05-12 05:53] LABS: Amphetamine Screen,Urine Not Detected (NotDetected); Barbiturate Screen,Urine Not Detected (NotDetected); Benzodiazepines Screen,Urine Detected (NotDetected); Cocaine Screen,Urine Not Detected (NotDetected); Methadone Screen, Urine Not Detected (NotDetected); Opiate Screen,Urine Not Detected (NotDetected); Oxycodone Screen, Urine Not Detected (NotDetected); Phencyclidine Screen,Urine Not Detected (NotDetected); Tricyclic Antidepressant,Urine Detected (NotDetected); Urn Cannabinoid Scrn Detected (NotDetected)
[2019-05-12] MEDS: POTASSIUM CHLORIDE ER 20 MEQ TAB.ER PO SCH ×3 (07:56→11:52)
[2019-05-12] MEDS ORDERED: NICOTINE 21MG/24HR PATCH TRANSDERM STA (11:47)
[2019-05-12] MEDS ORDERED: TOPIRAMATE 25 MG TAB PO STA (14:11)
[2019-05-12] MEDS ORDERED: QUEtiapine 50 MG TAB PO STA (14:13)
[2019-05-12] MEDS ORDERED: SENNOSIDES 8.6 MG TAB PO STA (14:13)
[2019-05-12] MEDS ORDERED: FUROSEMIDE 20 MG TAB PO STA (14:14)
[2019-05-12] MEDS ORDERED: NAPROXEN 250 MG TAB PO STA (14:14)
[2019-05-12] MEDS ORDERED: DESVENLAFAXINE SUCCINATE 50 MG TAB.ER.24H PO STA (14:15)
[2019-05-12] MEDS ORDERED: PANTOPRAZOLE 40 MG TABLET PO STA (14:15)
[2019-05-12] MEDS ORDERED: ALPRAZolam 0.25 MG TAB PO STA (14:16)
[2019-05-12] MEDS ORDERED: NAPROXEN 250 MG TAB PO PRN (15:59)
[2019-05-12] MEDS ORDERED: ACETAMINOPHEN TAB 325 MG TAB PO PRN (16:01)
[2019-05-12] MEDS ORDERED: MAG HYDROX/AL HYDROX/SIMETH 30 ML CUP PO PRN (16:01)
[2019-05-12] MEDS ORDERED: LORazepam 2 MG/ML INJ IM PRN (16:05)
--- NOTE | 2019-05-12 18:46 | P.MDCNMH ---
History of Present Illness H&P Date: 05/12/19 Chief Complaint: Medical evaluation 63-year-old female with history of TIA Comes in due to overwhelming depression due to social issues at home with her . She was feeling suicidal thinking of overdosing on Xanax. She has also been drinking too many alcoholic beverages normally she drinks 4 beers a week now she's been drinking more and more than that. She has been diagnosed with depression and bipolar disorder in the past however she feels her medications are not currently helping her she is here seeking help with her situation. Otherwise denies any fevers chills cough and chest pain or trouble breathing denies any abdominal pain nausea or vomiting denies any focal neuro deficits Review of Systems Pertinent positives as noted in HPI. All other systems were reviewed and are negative Past Medical History Past Medical History: COPD, CVA/TIA, Osteoarthritis (OA), Thyroid Disorder Additional Past Medical History / Comment(s): TIA 2015- no residual effects, "parathyroid problems" History of Any Multi-Drug Resistant Organisms: None Reported Past Surgical History: Adenoidectomy, Joint Replacement, Tonsillectomy Additional Past Surgical History / Comment(s): BILATERAL CATARACT, left hip replacement, deviated septum, rt shoulder rotator cuff then additional surgery on rt shoulder Past Anesthesia/Blood Transfusion Reactions: No Reported Reaction Past Psychological History: Anxiety, Bipolar, Depression, Panic Disorder Smoking Status: Current every day smoker Past Alcohol Use History: Occasional Past Drug Use History: None Reported - Past Family History Mother Family Medical History: Congestive Heart Failure (CHF) Additional Family Medical History / Comment(s): Mother at age 84 from old age. Father Family Medical History: Pulmonary Embolus Additional Family Medical History / Comment(s): Father at age 60 from pulmonary embolism. Brother(s) Additional Family Medical History / Comment(s): She has 2 brothers and one has multiple medical problems which she does not know details other than retinal detachment. Sister(s) Additional Family Medical History / Comment(s): She has one sister with history of sinus problems and migraine headaches. Son(s) Family Medical History: No Reported History Additional Family Medical History / Comment(s): She has 2 sons are healthy. Medications and Allergies Home Medications Medication Instructions Recorded Confirmed Type Desvenlafaxine Succinate [Pristiq] 50 mg PO DAILY 07/23/16 05/12/19 History Atorvastatin Calcium [Lipitor] 10 mg PO HS #30 tab 07/25/16 05/12/19 Rx QUEtiapine FUMARATE [SEROquel] 300 mg PO HS 09/18/17 05/12/19 History Topiramate 50 mg PO BID 09/18/17 05/12/19 History ALPRAZolam [Xanax] 0.25 mg PO TID PRN 02/04/18 05/12/19 History Furosemide [Lasix] 20 mg PO DAILY 02/04/18 05/12/19 History Esomeprazole Magnesium [NexIUM] 40 mg PO DAILY 05/12/19 05/12/19 History Naproxen [Naprosyn] 500 mg PO BID PRN 05/12/19 05/12/19 History Potassium Chloride ER [K-Dur 10] 10 meq PO DAILY 05/12/19 05/12/19 History QUEtiapine [SEROquel] 50 mg PO DAILY 05/12/19 05/12/19 History Sennosides/Docusate Sodium [Senna 1 tab PO BID 05/12/19 05/12/19 History Plus 8.6-50 mg Tablet] Allergies Allergy/AdvReac Type Severity Reaction Status Date / Time lamotrigine [From Lamictal] Allergy Rash/Hives Verified 05/12/19 12:11 Physical Exam Vitals: Vital Signs Temp Pulse Pulse Resp BP BP Pulse Ox 05/12/19 15:58 98.1 F 98 18 163/83 99 05/12/19 15:22 97.9 F 84 18 131/71 98 05/12/19 07:49 107 H 18 115/55 97 05/12/19 06:00 98.2 F 98 18 129/73 92 L 05/12/19 01:05 97.6 F 05/11/19 23:33 97.9 F 97 20 115/70 95 Intake and Output 05/12/19 05/12/19 05/12/19 06:59 14:59 22:59 Other: Weight 44.906 kg Constitutional: No acute distress, conversant, pleasant Eyes: Anicteric sclerae, moist conjunctiva, no lid-lag Pupils equal round reactive to light ENMT: NC/AT Oropharynx clear, no erythema, exudates Neck: Supple, FROM, no masses, or JVD No carotid bruits No thyromegaly Lungs: Clear to auscultation Clear to percussion Normal respiratory effort, no accessory muscle use Cardiovascular: Heart regular in rate and rhythm, No murmurs, gallops, or rubs No peripheral edema Abdominal: Soft Nontender, no guarding, rebound or rigidity Abdomen moving with respiration Normoactive bowel sounds No hepatomegaly, No splenomegaly No palpable mass No abdominal wall hernia noted Skin: Normal temperature, tone, texture, turgor No induration No subcutaneous nodules No rash, lesions No ulcers Extremities: No digital cyanosis No clubbing Pedal pulses intact and symmetrical Radial pulses intact and symmetrical No calf tenderness Psychiatric: Alert and oriented to person, place and time Depressed affect Poor judgement Neuro Muscles Strength 5/5 in all 4 extremities Sensation to light touch grossly present throughout Cranial nerves II-XII grossly intact No focal sensory deficits Lymphatics: no palpable cervical or supraclavicular , or inguinal lymph nodes Cranial Nerve Examination - Cranial Nerves Cranial Nerve II- Optic: Intact Cranial Nerve III- Oculomotor: Intact Cranial Nerve IV- Trochlear: Intact Cranial Nerve V- Trigeminal: Intact Cranial Nerve - Abducens: Intact Cranial Nerve VII- Facial: Intact Cranial Nerve VIII- Auditory: Intact Cranial Nerve IX- Glossopharyngeal: Intact Cranial Nerve X- Vagus: Intact Cranial Nerve XI- Accessory: Intact Cranial Nerve XII- Hypoglossal: Intact Results CBC & Chem 7: 05/12/19 02:20 05/12/19 13:33 Labs: Abnormal Lab Results - Last 24 Hours (Table) 05/12/19 05/12/19 05/12/19 Range/Units 02:20 02:20 05:20 MCV 100.8 H (80.0-100.0) fL Sodium 133 L (137-145) mmol/L Potassium 2.9 L (3.5-5.1) mmol/L Total Protein 6.1 L (6.3-8.2) g/dL U Tricyclic Antidepress Detected H (NotDetected) U Benzodiazepines Scrn Detected H (NotDetected) U Marijuana (THC) Screen Detected H (NotDetected) Assessment and Plan Assessment: 63 year old female with history of TIA on aspirin and Lipitor comes in due to depression overwhelming poorly controlled denies any suicidal thoughts Plan: Depression with suicide thoughts management per psych History of TIA Continue Lipitor and aspirin Macrocytosis without anemia Check vitamin B12 level Hypokalemia upon presentation currently resolved Other labs reviewed unremarkable at this point Low risk for DVT patient ambulatory Thank you for allowing us to participate in the care of this patient. We will follow peripherally. Do not hesitate to contact us with questions. Someone can be reached from the [facility] hospitalist group at all hours of the day at [phone].
[2019-05-12] MEDS: LORazepam 0.5 MG TAB PO PRN (18:49)
[2019-05-12] MEDS: ATORVASTATIN 10 MG TAB PO SCH (21:11)
[2019-05-12] MEDS: QUEtiapine 100 MG TAB PO SCH (21:11)
[2019-05-12] MEDS: SENNOSIDES-DOCUSATE SODIUM 1 EACH TAB PO SCH (21:12)
[2019-05-12] MEDS: TOPIRAMATE 25 MG TAB PO SCH (21:12)
[2019-05-13] MEDS: LORazepam 0.5 MG TAB PO PRN ×3 (06:10→20:56)
[2019-05-13] MEDS: NICOTINE 14MG/24HR PATCH TRANSDERM SCH (09:35)
[2019-05-13] MEDS: POTASSIUM CHLORIDE ER 10 MEQ TAB.ER.PRT PO SCH (09:36)
[2019-05-13] MEDS: PANTOPRAZOLE 40 MG TABLET PO SCH (09:36)
[2019-05-13] MEDS: FUROSEMIDE 20 MG TAB PO SCH (09:36)
[2019-05-13] MEDS: TOPIRAMATE 25 MG TAB PO SCH ×2 (09:36→20:53)
[2019-05-13] MEDS: QUEtiapine 50 MG TAB PO SCH (09:37)
[2019-05-13] MEDS: SENNOSIDES-DOCUSATE SODIUM 1 EACH TAB PO SCH ×2 (09:37→20:53)
[2019-05-13] MEDS: DESVENLAFAXINE SUCCINATE 50 MG TAB.ER.24H PO SCH (09:37)
--- NOTE | 2019-05-13 16:27 | P.HP ---
Psychiatric H&P - . H&P Date: 05/13/19 History & Physical: IDENTIFYING DATA: She is a 63-year-old female presents psychiatric unit voluntarily with complaints of depression and "stress." HISTORY OF PRESENT ILLNESS: She is well known to the psychiatric unit from prior admissions. She was last discharged from this unit on 11/27/2015 with the diagnoses of alcohol use disorder, benzodiazepine use disorder, major depressive disorder and posttraumatic stress disorder. Her prior admissions followed a pattern where she relapsed to alcohol, her depression worsens and she developed suicidal ideation. She presented with complaints of increasing depression and increased alcohol use in the context of increasing conflict with her . Both she and her agreed to allow her gmpzdhrt-cf-czx and grandson to live with them after her son and wbfqcnsy-um-lfo . She talked about her initially supporting this decision and was "happy" to have have his ablamabg-pa-blz and grandson in the home. However, over the months his attitude changed. He complained repeatedly about the presence of a qrjtcqfw-to-zde and grandson. This resulted in repeated conflicts and arguments. She talked about arguing with her on the day of her admission. The argument escalated to where the [id number]-nx-bvz called the police who came to the house to assess his situation and brought her to the emergency room. She denied that she was having thoughts of or suicide or had expressed suicidal thoughts. She repeatedly complained about her who she believes he is forcing her to choose between her marriage and her grandson. She is considering filing for divorce. Her alcohol use increase over the last few months but she denied that she was drinking more than 6 beers per day. She denied history of elevated mood or sustained irritability consistent with jackie or hypomania. She denied experiencing such psychotic symptoms as hallucinations, delusion or thought disturbances. She denied persistent and disabling anxiety or periods of increased anxiety consistent with panic attack. She denied obsessions or compulsions. PAST PSYCHIATRIC HISTORY: She has had at least 2 prior admissions to this psychiatric unit and, according to record she has been admitted to other psychiatric. She is meeting with a private psychiatrist, Dr. Villatoro, for the last 8 years. He prescribes Pristiq 50 mg daily, Topamax 50 mg by mouth twice a day and Seroquel 300 mg at bedtime and 50 mg daily for the treatment of her chronic depression. He also prescribes Xanax 0.25 mg 3 times a day when necessary for anxiety. She complained that he is unwilling to increased dose of Xanax. Note that her medical record indicates that she has a history of benzodiazepine abuse. PAST MEDICAL HISTORY: She has a history of COPD, tobacco use disorder, CVA, osteoarthritis and thyroid disease. ALLERGIES: Lamictal SUBSTANCE USE HISTORY: She has a history of an alcohol use disorder that is well documented in the medical record. She has history of abusing benzodiazepines and one point was taking as much as 6-8 mg of Xanax per day. She is never been any substance abuse treatment program. She denied the use of other drugs such as methamphetamine, heroin, cocaine etc. FAMILY PSYCHIATRIC/SUBSTANCE USE HISTORY: She has a family history of mood disorder LEGAL HISTORY: None SOCIAL HISTORY: This is her third marriage. They have been for 20 years. She has 2 children from her first 2 marriages. She has 4 grandchildren. 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 They live in their own home in [facility] MENTAL STATUS EXAM: She presented as a short statured and frail-appearing 63-year-old woman who was pleasant on approach. She made eye contact and attended to the interview. She had no distinguishing features or prominent physical abnormalities. She had a distressed facial expression. She was alert and oriented to person, place and time. She was not restless or agitated. She had no abnormal movements. Her speech was spontaneous with slight increase in rate but normal volume. She had no articulation difficulties. She was distressed, angry and anxious. She denied suicidal ideation, wishes or homicidal ideation. She expressed feelings of helplessness but denied feeling hopeless or worthless. She ruminated about the ongoing conflict with her as described above. She did not express phobias, ideas reference, paranoid ideation, magical ideation or delusional thoughts. Her thinking was abstract and associations were coherent and goal directed. She denied hallucinations did not appear to be responding to internal stimuli. Global impression of intellect is average. She is aware of her illness and need for treatment. STRENGTHS: Stable income, stable housing, good physical health, engagement with mental health services WEAKNESSES: Marital conflict IMPRESSION: She is 3-year-old female who has history of alcohol use disorder, benzodiazepine use disorder and recurrent depression. She presented to unit involuntarily with complaints of increasing depression and alcohol use in the context of conflict with her . The conflict has escalated to where she is considering separation and divorce. She denying suicidal homicidal ideation and there is no evidence of psychotic symptoms. She complains of anxiety and is frustrated that her private psychiatrist would not increase her outpatient dose of Xanax. She appreciated inpatient basis with combination psychopharmacology and multimodal therapy. PRINCIPLE DIAGNOSIS: Unspecified depressive disorder, rule out major depressive disorder, marital conflict, alcohol use disorder moderate, benzodiazepine use disorder mild RECOMMENDATION: Admit to the psychiatric unit. Safety precautions. Continue P ristiq 50 mg daily, Seroquel 300 mg at bedtime and 50 mg daily and Topamax 50 mg by mouth twice a day. Prescribed Ativan 0.5 mg 3 times a day when necessary for anxiety instead of the Xanax 0.25 mg 3 times a day. Obtain information from her outpatient psychiatrist and collateral information from family. Encourage participation in therapeutic groups and activities. Evaluate clinical status response to treatment on a daily basis. Allergies Allergy/AdvReac Type Severity Reaction Status Date / Time lamotrigine [From Lamictal] Allergy Rash/Hives Verified 05/12/19 12:11 Vital Signs Temp 97.9 F 05/13/19 05:53 Pulse 97 05/13/19 05:53 Resp 15 05/13/19 05:53 BP 122/77 05/13/19 05:53 Pulse Ox 99 05/12/19 15:58 Laboratory Last Values WBC 9.5 k/uL (3.8-10.6) 05/12/19 02:20 RBC 3.84 m/uL (3.80-5.40) 05/12/19 02:20 Hgb 12.5 gm/dL (11.4-16.0) 05/12/19 02:20 Hct 38.7 % (34.0-46.0) 05/12/19 02:20 MCV 100.8 fL (80.0-100.0) H 05/12/19 02:20 MCH 32.5 pg (25.0-35.0) 05/12/19 02:20 MCHC 32.2 g/dL (31.0-37.0) 05/12/19 02:20 RDW 13.9 % (11.5-15.5) 05/12/19 02:20 Plt Count 263 k/uL (150-450) 05/12/19 02:20 Neutrophils % 55 % 05/12/19 02:20 Lymphocytes % 35 % 05/12/19 02:20 Monocytes % 6 % 05/12/19 02:20 Eosinophils % 2 % 05/12/19 02:20 Basophils % 1 % 05/12/19 02:20 Neutrophils # 5.2 k/uL (1.3-7.7) 05/12/19 02:20 Lymphocytes # 3.3 k/uL (1.0-4.8) 05/12/19 02:20 Monocytes # 0.6 k/uL (0-1.0) 05/12/19 02:20 Eosinophils # 0.2 k/uL (0-0.7) 05/12/19 02:20 Basophils # 0.1 k/uL (0-0.2) 05/12/19 02:20 Macrocytosis Slight 05/12/19 02:20 Sodium 133 mmol/L (137-145) L 05/12/19 02:20 Potassium 4.2 mmol/L (3.5-5.1) 05/12/19 13:33 Chloride 98 mmol/L (98-107) 05/12/19 02:20 Carbon Dioxide 24 mmol/L (22-30) 05/12/19 02:20 Anion Gap 11 mmol/L 05/12/19 02:20 BUN 7 mg/dL (7-17) 05/12/19 02:20 Creatinine 0.67 mg/dL (0.52-1.04) 05/12/19 02:20 Est GFR (CKD-EPI)AfAm >90 (>60 ml/min/1.73 sqM) 05/12/19 02:20 Est GFR (CKD-EPI)NonAf >90 (>60 ml/min/1.73 sqM) 05/12/19 02:20 Glucose 82 mg/dL (74-99) 05/12/19 02:20 Calcium 8.6 mg/dL (8.4-10.2) 05/12/19 02:20 Total Bilirubin 0.3 mg/dL (0.2-1.3) 05/12/19 02:20 AST 27 U/L (14-36) 05/12/19 02:20 ALT 14 U/L (4-34) 05/12/19 02:20 Alkaline Phosphatase 84 U/L (38-126) 05/12/19 02:20 Total Protein 6.1 g/dL (6.3-8.2) L 05/12/19 02:20 Albumin 3.8 g/dL (3.5-5.0) 05/12/19 02:20 Triglycerides 96 mg/dL (<150) 05/12/19 02:20 Cholesterol 156 mg/dL (<200) 05/12/19 02:20 LDL Cholesterol, Calc 37 mg/dL (0-99) 05/12/19 02:20 HDL Cholesterol 100 mg/dL (40-60) H 05/12/19 02:20 TSH 0.967 mIU/L (0.465-4.680) 05/12/19 02:20 Urine HCG, Qual Not Detected (Not Detectd) 05/12/19 05:20 Salicylates <1.0 mg/dL 05/12/19 02:20 Urine Opiates Screen Not Detected (NotDetected) 05/12/19 05:20 Ur Oxycodone Screen Not Detected (NotDetected) 05/12/19 05:20 Urine Methadone Screen Not Detected (NotDetected) 05/12/19 05:20 Ur Propoxyphene Screen Not Detected (NotDetected) 05/12/19 05:20 Acetaminophen <10.0 ug/mL 05/12/19 02:20 Ur Barbiturates Screen Not Detected (NotDetected) 05/12/19 05:20 U Tricyclic Antidepress Detected (NotDetected) H 05/12/19 05:20 Ur Phencyclidine Scrn Not Detected (NotDetected) 05/12/19 05:20 Ur Amphetamines Screen Not Detected (NotDetected) 05/12/19 05:20 U Methamphetamines Scrn Not Detected (NotDetected) 05/12/19 05:20 U Benzodiazepines Scrn Detected (NotDetected) H 05/12/19 05:20 Urine Cocaine Screen Not Detected (NotDetected) 05/12/19 05:20 U Marijuana (THC) Screen Detected (NotDetected) H 01/27/20 05:20 Serum Alcohol 78 mg/dL 05/12/19 02:20 05/13/19 16:08
[2019-05-13 19:34] LABS: Hemoglobin A1C 5.4 % (4.0-6.0)
[2019-05-13] MEDS: ATORVASTATIN 10 MG TAB PO SCH (20:53)
[2019-05-13] MEDS: QUEtiapine 100 MG TAB PO SCH (20:53)
[2019-05-14] MEDS: NICOTINE 14MG/24HR PATCH TRANSDERM SCH (08:59)
[2019-05-14] MEDS: PANTOPRAZOLE 40 MG TABLET PO SCH (08:59)
[2019-05-14] MEDS: SENNOSIDES-DOCUSATE SODIUM 1 EACH TAB PO SCH ×2 (08:59→21:13)
[2019-05-14] MEDS: FUROSEMIDE 20 MG TAB PO SCH (08:59)
[2019-05-14] MEDS: POTASSIUM CHLORIDE ER 10 MEQ TAB.ER.PRT PO SCH (08:59)
[2019-05-14] MEDS: QUEtiapine 50 MG TAB PO SCH (08:59)
[2019-05-14] MEDS: TOPIRAMATE 25 MG TAB PO SCH ×2 (08:59→21:13)
[2019-05-14] MEDS: DESVENLAFAXINE SUCCINATE 50 MG TAB.ER.24H PO SCH (08:59)
[2019-05-14] MEDS: LORazepam 0.5 MG TAB PO PRN ×2 (09:01→16:22)
--- NOTE | 2019-05-14 16:24 | P.PN ---
Subjective Progress Note Date: 05/14/19 Principal diagnosis: Adjustment disorder with disturbance of mood and conduct, major depressive disorder recurrent in partial remission, alcohol use disorder moderate, benzodiazepine use disorder moderate I reviewed the medical record and interviewed the patient. She feels much less distressed today than on admission. She recognizes her distress is related to the ongoing family conflict. She revealed that she has met with regulatory attorney to begin to force proceedings and removed from her from her home. We talked about coping strategies and she was unable to identify a means to cope with her distress other than to drink or take benzodiazepines. Objective - Vital Signs Vital signs: Vital Signs Temp 97.9 F 05/14/19 06:59 Pulse 105 H 05/14/19 09:00 Resp 18 05/14/19 06:59 BP 106/67 05/14/19 09:00 Pulse Ox 98 05/14/19 06:59 - Exam She presented as a thin casually groomed 63-year-old woman who was pleasant on approach. She made eye contact and attended to interview. She had a calm facial expression. Her speech was spontaneous with normal rate, rhythm and volume. Her affect was stable and appropriate. She feels hopeless regardi ng her marital situation but denied suicidal ideation, intent or plan. There is no evidence of psychotic symptoms such as hallucinations, delusions or thought disturbances. - Labs CBC & Chem 7: 05/12/19 02:20 05/12/19 13:33 Assessment and Plan Assessment: She is strongly remarkable and rapid reduction in her anxiety and depressive symptoms suggestive that her presentation was related to adjustment issues. She has significant marital discord and is planning to pursue a divorce. Plan: Plan for discharge on 05/15/2019. Continue safety precautions. Continue her current psychotropic medications including Pristiq 50 mg daily, Seroquel 200 mg at bedtime and 50 mg daily, Topamax 50 mg twice a day and lorazepam 0.5 mg 3 times a day when necessary and said this Xanax.
[2019-05-14 16:29] LABS: Glucose,Whole Blood 85 mg/dL (75-99)
[2019-05-14] MEDS: QUEtiapine 100 MG TAB PO SCH (21:13)
[2019-05-14] MEDS: ATORVASTATIN 10 MG TAB PO SCH (21:13)
[2019-05-15 06:57] VITALS: TEMP 98
[2019-05-15] MEDS: PANTOPRAZOLE 40 MG TABLET PO SCH (08:04)
[2019-05-15] MEDS: NICOTINE 14MG/24HR PATCH TRANSDERM SCH (08:04)
[2019-05-15] MEDS: DESVENLAFAXINE SUCCINATE 50 MG TAB.ER.24H PO SCH (08:04)
[2019-05-15] MEDS: QUEtiapine 50 MG TAB PO SCH (08:04)
[2019-05-15] MEDS: SENNOSIDES-DOCUSATE SODIUM 1 EACH TAB PO SCH (08:04)
[2019-05-15] MEDS: TOPIRAMATE 25 MG TAB PO SCH (08:05)
[2019-05-15] MEDS: FUROSEMIDE 20 MG TAB PO SCH (08:05)
[2019-05-15] MEDS: LORazepam 0.5 MG TAB PO PRN (09:47)
[2019-05-15 09:52] VITALS: BP 118/61; PULSE 92; RESP 18
[2019-05-15] MEDS: POTASSIUM CHLORIDE ER 10 MEQ TAB.ER.PRT PO SCH (10:10)
--- NOTE | 2019-05-15 14:09 | P.DS ---
Providers Date of admission: 05/12/19 14:59 Attending physician: Wayne Weathers MD Consults: 05/12/19 16:01 Consult Physician Routine Consulting Provider: [facility] Consult Reason/Comments: H&P and medical Do you want consulting provider notified?: Yes Primary care physician: Ruslan Nelson - Araceli Diagnosis(es) (1) Marital conflict Current Visit: Yes Status: Chronic Priority: High (2) Suicidal ideation Current Visit: Yes Status: Resolved Priority: Low (3) Depression Current Visit: Yes Status: Chronic Priority: Low (4) Alcohol intoxication Current Visit: No Status: Resolved Priority: Low (5) Alcohol use disorder Current Visit: Yes Status: Chronic Priority: Medium Hospital Course: She is a 63-year-old female presents psychiatric unit voluntarily with complaints of depression and "stress." She is well known to the psychiatric unit from prior admissions. She was last discharged from this unit on 11/27/2015 with the diagnoses of alcohol use disorder, benzodiazepine use disorder, major depressive disorder and posttraumatic stress disorder. Her prior admissions followed a pattern where she relapsed to alcohol, her depression worsens and she developed suicidal ideation. She presented with complaints of increasing depression and increased alcohol use in the context of increasing conflict with her . Both she and her agreed to allow her ivqnivxl-is-rrb and grandson to live with them after her son and yvjtsuzy-lv-wal . She talked about her initially supporting this decision and was "happy" to have have his aslfweor-ly-tqa and grandson in the home. However, over the months his attitude changed. He complained repeatedly about the presence of a hexbwgmv-ta-nse and grandson. This resulted in repeated conflicts and arguments. She talked about arguing with her on the day of her admission. The argument escalated to where the [id number]-lp-crw called the police who came to the house to assess his situation and brought her to the emergency room. She denied that she was having thoughts of or suicide or had expressed suicidal thoughts. She repeatedly complained about her who she believes he is forcing her to choose between her marriage and her grandson. She is considering filing for divorce. Her alcohol use increase over the last few months but she denied that she was drinking more than 6 beers per day. She complained that her alcohol use increased because her outpatient psychiatrist would not increase her dose of Xanax. We admitted her to psychiatric unit under care of this journalists and other writers. We provided a competence biopsychosocial assessment. The medical claims analyst completed initial physical exam and medical history and diagnosed history of TIA and macrocytosis without anemia. He recommended continue Lipitor, aspirin and checked vitamin B12 level. We continued her outpatient psychotropic medications including Pristiq 50 mg daily, Seroquel 50 mg daily and trazodone milligrams at bedtime and Topamax 50 mg twice a day. We prescribed lorazepam 0.5 mg 3 times a day when necessary instead of her outpatient dose of Xanax 0.25 mg 3 times a day. She participated in therapeutic groups and activities. She perseverated about her marital problems and revealed that she consulted with an feed adviser to begin divorce proceedings. She alleged that she does not have a means of coping with stress other than drinking alcohol or taking any benzodiazepines despite having discussed coping mechanisms during group and individual therapy. Her suicidal thoughts stopped when she was arrived on the unit. At time of discharge she presented as a neatly groomed thin elderly female who was pleasant on approach. She applied makeup. She had a bright facial expression. She was alert and oriented to person place and time. She showed no abnormality of psychomotor activity. She had no abnormal movements. Her speech was spontaneous with normal rate, rhythm and volume. Her affect was blunted but stable and appropriate. She denied suicidal or homicidal ideation. She denied feeling hopeless, helpless or worthless. She did not express phobias, ideas reference or paranoid ideation. Her thinking was concrete. Associations were coherent and logical. She denied hallucinations and did not appear to responding to internal stimuli. Patient Condition at Discharge: Stable Plan - Discharge Summary New Discharge Prescriptions: New Nicotine 14Mg/24Hr Patch [Habitrol] 1 patch TRANSDERM DAILY 28 Days #28 patch Continue Desvenlafaxine Succinate [Pristiq] 50 mg PO DAILY Atorvastatin Calcium [Lipitor] 10 mg PO HS #30 tab Topiramate 50 mg PO BID QUEtiapine FUMARATE [SEROquel] 300 mg PO HS ALPRAZolam [Xanax] 0.25 mg PO TID PRN PRN Reason: Anxiety Furosemide [Lasix] 20 mg PO DAILY Naproxen [Naprosyn] 500 mg PO BID PRN PRN Reason: Pain Esomeprazole Magnesium [NexIUM] 40 mg PO DAILY QUEtiapine [SEROquel] 50 mg PO DAILY Sennosides/Docusate Sodium [Senna Plus 8.6-50 mg Tablet] 1 tab PO BID Potassium Chloride ER [K-Dur 10] 10 meq PO DAILY Discharge Medication List Desvenlafaxine Succinate [Pristiq] 50 mg PO DAILY 07/23/16 [History] Atorvastatin Calcium [Lipitor] 10 mg PO HS #30 tab 07/25/16 [Rx] QUEtiapine FUMARATE [SEROquel] 300 mg PO HS 09/18/17 [History] Topiramate 50 mg PO BID 09/18/17 [History] ALPRAZolam [Xanax] 0.25 mg PO TID PRN 02/04/18 [History] Furosemide [Lasix] 20 mg PO DAILY 02/04/18 [History] Esomeprazole Magnesium [NexIUM] 40 mg PO DAILY 05/12/19 [History] Naproxen [Naprosyn] 500 mg PO BID PRN 05/12/19 [History] Potassium Chloride ER [K-Dur 10] 10 meq PO DAILY 05/12/19 [History] QUEtiapine [SEROquel] 50 mg PO DAILY 05/12/19 [History] Sennosides/Docusate Sodium [Senna Plus 8.6-50 mg Tablet] 1 tab PO BID 05/12/19 [History] Nicotine 14Mg/24Hr Patch [Habitrol] 1 patch TRANSDERM DAILY 28 Days #28 patch 05/15/19 [Rx] Follow up Appointment(s)/Referral[facility]s): [facility] (05/19/2019 at 1130 am with July) Ruslan Nelson [Primary Care Provider] - 1-2 days Activity/Diet/Wound Care/Special Instructions: Activity and diet as tolerated. Avoid the use of street drugs and alcohol. Take all medications as prescribed. When you are in need of refills on your medications please contact your medical provider and/or outpatient psychiatrist to have this done. Please go to scheduled outpatient appointment for aftercare treatment. If symptoms return or become worse, call the crisis line at and/or go to the nearest emergency room for evaluation. Discharge Disposition: HOME SELF-CARE
== END 2019-05-15 14:37 | disposition home or self-care (01) | DRG 885 ==
LOC: EC 23:16 → 3MHU 05-12 14:59
PROVIDERS: ADMIT Psychiatry & Neurology Psychiatry; ATTEND Psychiatry & Neurology Psychiatry
DX: F33.41 Major depressive disorder, recurrent, in partial remission (principal); R45.851 Suicidal ideations; F41.0 Panic disorder [episodic paroxysmal anxiety]; F43.10 Post-traumatic stress disorder, unspecified; F43.25 Adjustment disorder with mixed disturbance of emotions and conduct; F10.129 Alcohol abuse with intoxication, unspecified; Y90.3 Blood alcohol level of 60-79 mg/100 ml; F13.10 Sedative, hypnotic or anxiolytic abuse, uncomplicated; F17.210 Nicotine dependence, cigarettes, uncomplicated; J44.9 Chronic obstructive pulmonary disease, unspecified; Z63.0 Problems in relationship with spouse or partner; Z79.1 Long term (current) use of non-steroidal anti-inflammatories (NSAID); Z79.82 Long term (current) use of aspirin; Z79.899 Other long term (current) drug therapy; Z82.49 Family history of ischemic heart disease and other diseases of the circulatory system; Z86.73 Personal history of transient ischemic attack (TIA), and cerebral infarction without residual deficits; Z96.642 Presence of left artificial hip joint; Z98.42 Cataract extraction status, left eye; Z98.41 Cataract extraction status, right eye; Z83.2 Family history of diseases of the blood and blood-forming organs and certain disorders involving the immune mechanism; Z88.8 Allergy status to other drugs, medicaments and biological substances
CPT/HCPCS: 36415; 80053; 80061; 80306; 80320; 80329; 81025; 82075; 82607; 83036; 83520; 84132; 84443; 85025; 93005; 99285

== ENCOUNTER 2019-08-20 00:08 | Emergency (ER) | payer MEDICARE, OTHER ==
[2019-08-20 00:17] VITALS: BP 122/73; PULSE 82; RESP 18; TEMP 97.6
[2019-08-20] MEDS ORDERED: DIPH,PERTUS(ACELL)TETVAC-LF 0.5 ML VIAL IM ONE (00:51)
[2019-08-20] MEDS ORDERED: LIDOCAINE 1% INJ 10MG/ML (20 ML MDV) SQ ONE (00:51)
[2019-08-20] MEDS ORDERED: AMOXIC-POT CLAV 875-125MG 1 EACH TAB PO STA (00:52)
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
--- NOTE | 2019-08-20 01:12 | XR ---
EXAMINATION TYPE: XR hand limited LT DATE OF EXAM: 08/20/2019 COMPARISON: NONE HISTORY: Dogbite. Pain. TECHNIQUE: 2 views FINDINGS: The metacarpals are intact. I see no fracture nor dislocation. There is mild narrowing of t he IP joint spaces. There are no erosions. There is no subluxation. IMPRESSION: No acute abnormality of the left hand. No fracture.
== END 2019-08-20 01:35 | disposition home or self-care (01) ==
LOC: EC 00:08
DX: S61.452A Open bite of left hand, initial encounter (principal); S61.412A Laceration without foreign body of left hand, initial encounter; Z23 Encounter for immunization; M19.90 Unspecified osteoarthritis, unspecified site; F41.9 Anxiety disorder, unspecified; F31.9 Bipolar disorder, unspecified; Z79.899 Other long term (current) drug therapy; F17.200 Nicotine dependence, unspecified, uncomplicated; Z88.8 Allergy status to other drugs, medicaments and biological substances; Z86.73 Personal history of transient ischemic attack (TIA), and cerebral infarction without residual deficits; Z96.642 Presence of left artificial hip joint; W54.0XXA Bitten by dog, initial encounter; Y93.89 Activity, other specified
CPT/HCPCS: 73120; 90715; 90471; 12001; 99283; J2001

== ENCOUNTER → 2019-10-08 | Outpatient (CLI) | payer MEDICARE, OTHER ==
--- NOTE | 2019-10-08 22:09 | CT ---
EXAMINATION TYPE: CT abdomen pelvis w con DATE OF EXAM: 10/08/2019 HISTORY: Abnormal weight loss. Pain. CT DLP: 309.3mGycm Automated Exposure Control for Dose Reduction was Utilized. CONTRAST: CT scan of the abdomen and pelvis is performed with IV Contrast, patient injected with 100ml mL of Is ovue 300. COMPARISON: CT abdomen and pelvis January 29, 2017 FINDINGS: LUNG BASES: No significant abnormality is appreciated. LIVER/GB: Nonspecific subcentimeter lesion posterior right hepatic lobe axial image 27 too small to f urther characterize presumed benign. PANCREAS: No significant abnormality is seen. SPLEEN: No significant abnormality is seen. ADRENALS: No significant abnormality is seen. KIDNEYS: No significant abnormality is seen. BOWEL: Oral contrast reaches level of the distal transverse colon. Stomach poorly distended and subop timally evaluated. Patient has little intra-abdominal fat making evaluation suboptimal. No suspicious small or large bowel dilatation. There are diverticula in the left and to a greater degree throughou t the sigmoid colon without CT evidence for acute diverticulitis. Prominence of fecal material in the transverse colon is present. Normal contrast-filled appendix from base of cecum in the right pelvis noted. UTERUS/ADNEXA: Heterogeneous anteverted uterus projects to left of midline. LYMPH NODES: No greater than 1cm abdominal or pelvic lymph nodes are appreciated. OSSEOUS STRUCTURES: Transitional type L6 vertebra is sacralized on the right is redemonstrated. [place] us structures are demineralized. Facet arthropathy lower lumbar levels. Metallic artifact from left h ip arthroplasty causes streak artifact somewhat limiting evaluation of pelvic structures. OTHER: Moderate calcified plaque of the aorta extends into branch vessels. IMPRESSION: 1. No suspicious new mass or adenopathy to suggest neoplasm. 2. Perhaps moderate colonic fecal stasis. No bowel obstruction. Prominent sigmoid colonic diverticulo sis noted.
== END | disposition home or self-care (01) ==
LOC: RADCTMAIN 15:59
PROVIDERS: ATTEND Family Medicine
DX: K57.30 Diverticulosis of large intestine without perforation or abscess without bleeding (principal)
CPT/HCPCS: 74177; Q9967

== ENCOUNTER → 2019-11-05 | Outpatient (CLI) | payer MEDICARE ==
[2019-11-05 19:00] LABS: African American GFR (CKD) 90.3 (60.0-200.0); Albumin 4.4 g/dL (3.80-4.90); Albumin/Globulin Ratio 2.1 (1.60-3.17); Anion Gap 7.8 mmol/L (4.00-12.00); BUN/Creat Ratio 13.75 Ratio (12.00-20.00); Calcium 9.4 mg/dL (8.7-10.3); Carbon Dioxide 25.2 mmol/L (21.6-31.8); Globulin 2.1 g/dL (1.6-3.3); Non-African American GFR(CKD) 77.9 (60.0-200.0); Potassium 3.8 mmol/L (3.5-5.5); Total Bilirubin 0.5 mg/dL (0.3-1.2); Total Protein 6.5 g/dL (6.2-8.2)
== END | disposition home or self-care (01) ==
LOC: LABWHC1 13:28
PROVIDERS: ATTEND Internal Medicine Endocrinology, Diabetes & Metabolism
DX: M81.0 Age-related osteoporosis without current pathological fracture (principal)
CPT/HCPCS: 36415; 80053; 82306; 84443

== ENCOUNTER → 2020-04-21 | Outpatient (CLI) | payer MEDICARE ==
[2020-04-21 10:23] LABS: Basophils # (A) 0.1 k/uL (0-0.2); Basophils % (A) 1 %; Eosinophils # (A) 0.1 k/uL (0-0.7); Eosinophils % (A) 1 %; HCT 40.5 % (34.0-46.0); HGB 13.4 gm/dL (11.4-16.0); Lymphocytes # (A) 1.5 k/uL (1.0-4.8); Lymphocytes % (A) 23 %; MCH 31.6 pg (25.0-35.0); MCHC 33.1 g/dL (31.0-37.0); MCV 95.5 fL (80.0-100.0); Mean Platelet Volume 6.8; Monocytes # (A) 0.5 k/uL (0-1.0); Monocytes % (A) 8 %; Neutrophils # (A) 4.2 k/uL (1.3-7.7); Neutrophils % (A) 65 %; Platelet Count 325 k/uL (150-450); RBC 4.24 m/uL (3.80-5.40); RDW 13.6 % (11.5-15.5); WBC 6.5 k/uL (3.8-10.6)
[2020-04-21 16:36] LABS: African American GFR (CKD) 78.3 (60.0-200.0); Albumin 4.9 g/dL (3.80-4.90); Albumin/Globulin Ratio 2.45 (1.60-3.17); Anion Gap 10.3 mmol/L (4.00-12.00); BUN/Creat Ratio 16.67 Ratio (12.00-20.00); Calcium 9.4 mg/dL (8.7-10.3); Carbon Dioxide 27.7 mmol/L (21.6-31.8); Chol/HDL Ratio 1.9; LDL Cholesterol,Calculated 76.6 mg/dL (0.0-131.0); Magnesium 1.8 mg/dL (1.5-2.4); Non-African American GFR(CKD) 67.6 (60.0-200.0); Potassium 3.9 mmol/L (3.5-5.5); Total Bilirubin 0.6 mg/dL (0.3-1.2); Total Protein 6.9 g/dL (6.2-8.2); VLDL Calculation 12.4 mg/dL (5.00-40.00)
[2020-04-21 16:57] LABS: T4, Free (Free Thyroxine) 0.8 ng/dL (0.80-1.80)
[2020-04-21 17:49] LABS: Hemoglobin A1C 5.8 % (4.0-6.0)
== END | disposition home or self-care (01) ==
LOC: LABWHC1 09:43
PROVIDERS: ATTEND Internal Medicine Endocrinology, Diabetes & Metabolism
DX: M81.0 Age-related osteoporosis without current pathological fracture (principal); E21.1 Secondary hyperparathyroidism, not elsewhere classified; F31.4 Bipolar disorder, current episode depressed, severe, without psychotic features; Z79.899 Other long term (current) drug therapy
CPT/HCPCS: 36415; 80053; 80061; 82306; 82607; 82746; 83036; 83735; 83970; 84439; 84443; 84630; 85025

== ENCOUNTER → 2020-04-28 | Outpatient (CLI) | payer MEDICARE | END | disposition home or self-care (01) | LOC: LABWHC1 14:12 | PROVIDERS: ATTEND Family Medicine | DX: Z20.822 Contact with and (suspected) exposure to COVID-19 (principal) | CPT/HCPCS: U0003; C9803; U0005 ==

== ENCOUNTER → 2022-01-05 | Outpatient (CLI) | payer MEDICARE ==
--- NOTE | 2022-01-05 19:23 | US ---
EXAMINATION TYPE: US transvaginal DATE OF EXAM: 01/05/2022 COMPARISON: CT abdomen pelvis 10/08/2019 CLINICAL HISTORY: Z12.4 CERVICAL CA SCREENING, N93.9 VAGINAL BLEEDING. 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 No pain . TECHNIQUE: Transvaginal (TV). 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 Uterus: Anteverted Heterogenous 2. Endometrium: wnl 3. Right Ovary: Obscured by overlying bowel gas 4. Left Ovary: Obscured by overlying bowel gas 5. Bilateral Adnexa: wnl 6. Posterior cul-de-sac: no free fluid 7. Visualized portion of the cervix is unremarkable. IMPRESSION: 1. Heterogenous appearance of the uterus which can be seen with adenomyosis versus fibroid changes. 2. Normal endometrial thickness.
== END | disposition home or self-care (01) ==
LOC: RADUSWWP 16:48
PROVIDERS: ATTEND Family Medicine
DX: Z12.4 Encounter for screening for malignant neoplasm of cervix (principal); N93.9 Abnormal uterine and vaginal bleeding, unspecified
CPT/HCPCS: 76830

== ENCOUNTER → 2023-01-01 | Outpatient (CLI) | payer MEDICARE ==
[2023-01-01 15:54] LABS: ALT 23 U/L (8-44); AST 28 U/L (13-35); Albumin 4.8 d/dL (3.8-4.9); Albumin/Globulin Ratio 2.29 Ratio (1.60-3.17); Alkaline Phosphatase 150 U/L (41-126); BUN/Creat Ratio 17.62 Ratio (12.00-20.00); Blood Urea Nitrogen 14.1 mg/dL (9.0-27.0); Calcium 9.7 mg/dL (8.7-10.3); Carbon Dioxide 22.9 mmol/L (21.6-31.8); Chloride 96 mmol/L (96-109); Globulin 2.1 d/dL (1.6-3.3); Glucose 83 mg/dL (70-110); Potassium 3.9 mmol/L (3.5-5.5); Sodium 133 mmol/L (135-145); Total Bilirubin 0.2 mg/dL (0.3-1.2); Total Protein 6.9 d/dL (6.2-8.2)
== END | disposition home or self-care (01) ==
LOC: LABWHC1 11:18
PROVIDERS: ATTEND Family Medicine
DX: L65.9 Nonscarring hair loss, unspecified (principal)
CPT/HCPCS: 36415; 80053; 82306; 83970; 84443

== ENCOUNTER → 2024-03-12 | Outpatient (CLI) | payer MEDICARE ==
[2024-03-12 16:15] LABS: % Iron Saturation 5.32 (12.00-45.00); ALT 19 U/L (8-44); AST 24 U/L (13-35); Albumin 4.6 g/dL (3.8-4.9); Albumin/Globulin Ratio 2.09 Ratio (1.60-3.17); Alkaline Phosphatase 121 U/L (41-126); Bilirubin, Conjugated <0.20 mg/dL (0.20-0.40); Bilirubin,Unconjugated >0.10 mg/dL (0.20-1.00); Globulin 2.2 g/dL (1.6-3.3); Iron 26 UG/DL (50-170); Total Bilirubin 0.3 mg/dL (0.3-1.2); Total Iron Binding Capacity 489 UG/DL (228-460); Total Protein 6.8 g/dL (6.2-8.2)
[2024-03-12 16:16] LABS: Ferritin 23.3 ng/mL (10.0-291.0); Hepatitis A Antibody IgM Nonreactive (Nonreactive); Hepatitis B Core IgM Nonreactive (Nonreactive); Hepatitis B Surface Antigen Nonreactive (Nonreactive); Hepatitis C IgG Antibody Nonreactive (Nonreactive)
[2024-03-12 16:47] LABS: Ceruloplasmin 26.2 mg/dL (20.0-60.0)
== END | disposition home or self-care (01) ==
LOC: LABWHC1 09:59
PROVIDERS: ATTEND Family Medicine
DX: R74.8 Abnormal levels of other serum enzymes (principal)
CPT/HCPCS: 36415; 80074; 80076; 82390; 82728; 83036; 83516; 83540; 83550; 84630

== ENCOUNTER → 2024-03-26 | Outpatient (CLI) | payer MEDICARE ==
--- NOTE | 2024-03-27 16:18 | US ---
EXAMINATION TYPE: US liver DATE OF EXAM: 03/26/2024 COMPARISON: NONE CLINICAL INDICATION: Female, 68 years old with history of R74.8 ELEVATED ALK PHOSPHATE; Elevated live r enzymes. TECHNIQUE: Grayscale and color Doppler imaging of the right upper quadrant was performed. FINDINGS: EXAM MEASUREMENTS: Liver Length: 11.6 cm Gallbladder Wall: .2 cm CBD: .1 cm Right Kidney: 7.8 x 2.7 x 4.7 cm WASTE DISPOSAL LEAKAGE TESTER NOTES: Pancreas: Tail obscured by overlying bowel gas Liver: wnl Gallbladder: wnl Evidence for sonographic Mcintosh's sign: No CBD: wnl Right Kidney: wnl IMPRESSION: 1. Unremarkable right upper quadrant ultrasound [facility], , 03/27/2024 4:16 PM
== END | disposition home or self-care (01) ==
LOC: RADUSWWP 07:39
PROVIDERS: ATTEND Family Medicine
DX: R74.8 Abnormal levels of other serum enzymes (principal)
CPT/HCPCS: 76705

== ENCOUNTER 2024-05-13 10:21 | Day surgery (SDC) | payer MEDICARE ==
[2024-05-08 12:33] VITALS: BMI 16.7
[2024-05-13] MEDS: IV FLUID CONTINUATION 1,000 ML IV ONE (10:36)
[2024-05-13 10:49] VITALS: RESP 16; TEMP 97.5
[2024-05-13] MEDS: LACTATED RINGERS 1,000 ML IV SCH (11:01)
[2024-05-13] MEDS ORDERED: LIDOCAINE 2% (PF) 20 MG/ML 5 ML VIAL ONE (11:34)
[2024-05-13] MEDS ORDERED: PROPOFOL 10 MG/ML 20 ML VIAL IV ONE (11:34)
--- NOTE | 2024-05-13 11:38 | P.GSHP ---
History of Present Illness H&P Date: 05/13/24 Chief Complaint: Iron deficiency anemia, GERD 68-year-old female here for upper endoscopy. Patient apparently has anemia. Some GERD symptoms. No significant abdominal pain. She says her last colonoscopy was a few years ago. Past Medical History Past Medical History: Cancer, COPD, CVA/TIA, GERD/Reflux, Hyperlipidemia, Osteoarthritis (OA), Thyroid Disorder, Vascular Disorder Additional Past Medical History / Comment(s): TIA 2016- no residual effects, "parathyroid problems", Anemic, "Blockages to both legs from the knee down." Skin cancer History of Any Multi-Drug Resistant Organisms: None Reported Past Surgical History: Adenoidectomy, Joint Replacement, Tonsillectomy Additional Past Surgical History / Comment(s): BILATERAL CATARACT, left hip replacement, deviated septum, rt shoulder rotator cuff then additional surgery on rt shoulder. Total hip 2019, Colonoscopy x3. Past Anesthesia/Blood Transfusion Reactions: No Reported Reaction Additional Past Anesthesia/Blood Transfusion Reaction / Comment(s): No hx of blood transfusion to date. Smoking Status: Current every day smoker - Past Family History Mother Family Medical History: Congestive Heart Failure (CHF) Additional Family Medical History / Comment(s): Mother at age 84 from old age. Father Family Medical History: Pulmonary Embolus Additional Family Medical History / Comment(s): Father at age 60 from pulmonary embolism. Brother(s) Family Medical History: Cancer Additional Family Medical History / Comment(s): She has 2 brothers and one has multiple medical problems which she does not know details other than retinal detachment. myeloma Sister(s) Additional Family Medical History / Comment(s): She has one sister with history of sinus problems and migraine headaches. Son(s) Family Medical History: No Reported History Additional Family Medical History / Comment(s): She has 2 sons are healthy. Medications and Allergies Home Medications Medication Instructions Recorded Confirmed Type Atorvastatin Calcium [Lipitor] 10 mg PO HS #30 tab 07/25/16 05/13/24 Rx QUEtiapine FUMARATE [SEROquel] 300 mg PO HS 09/18/17 05/13/24 History Topiramate 100 mg PO HS 09/18/17 05/13/24 History ALPRAZolam [Xanax] 0.25 mg PO BID 02/04/18 05/13/24 History Furosemide [Lasix] 20 mg PO QAM 02/04/18 05/13/24 History Acetaminophen [Tylenol Arthritis] 650 mg PO QAM PRN 05/08/24 05/13/24 History Aspirin EC [Ecotrin Low Dose] 81 mg PO HS 05/08/24 05/13/24 History Ferrous Sulfate [Feosol] 325 mg PO QAM 05/08/24 05/13/24 History Mirtazapine [Remeron] 30 mg PO HS 05/08/24 05/13/24 History Pantoprazole [Protonix] 40 mg PO QAM 05/08/24 05/13/24 History Allergies Allergy/AdvReac Type Severity Reaction Status Date / Time lamotrigine [From Lamictal] Allergy Rash/Hives Verified 05/13/24 10:49 Surgical - Exam Vital Signs Temp Pulse Resp BP Pulse Ox 97.5 F L 100 16 147/73 97 05/13/24 10:47 05/13/24 10:47 05/13/24 10:47 05/13/24 10:47 05/13/24 10:47 Physical exam: General: Well-developed, well-nourished HEENT: Normocephalic, sclerae nonicteric Abdomen: Nontender, nondistended Extremities: No edema Neuro: Alert and oriented Assessment and Plan (1) GERD (gastroesophageal reflux disease) Narrative/Plan: Will proceed with EGD and biopsy at this time. Current Visit: Yes Status: Acute Code(s): K21.9 - GASTRO-ESOPHAGEAL REFLUX DISEASE WITHOUT ESOPHAGITIS SNOMED Code(s): 787167330
--- NOTE | 2024-05-13 11:45 | P.PCN ---
Date of Procedure: 05/13/24 Procedure(s) Performed: Preoperative Dx: Anemia, GERD Postoperative Dx: Mild gastritis Procedure: EGD with Bx Anesthesia: Sedation Endoscopist: Dr. Brewer Specimens: Antrum Endoscopic Procedure: The patient was on the endoscopy table in the left decubitus position. The Olympus gastroscope was inserted into the oropharynx and passed under direct visualization to the region of the third portion of the duodenum. From that point the scope was slowly withdrawn inspecting all surfaces carefully. There were no neoplastic inflammatory or polypoid lesions throughout the duodenum. The pylorus was widely patent. The stomach was carefully inspected. There was mild gastritis present. A biopsy of the antrum took place to rule out H. pylori. Retroflexion revealed a normal hiatus. The esophagus was then carefully examined. There were no neoplastic inflammatory or polypoid lesions throughout the visualized esophagus. The patient was then taken to the recovery room in stable condition per anesthesia guidelines. Recommendations: Resume diet. Continue anemia workup.
[2024-05-13 11:52] VITALS: PULSE 80
[2024-05-13 12:34] VITALS: BP 117/68
== END 2024-05-13 12:53 | disposition home or self-care (01) ==
LOC: ORWHC2ENDO 10:21
PROVIDERS: ATTEND Surgery
DX: D50.9 Iron deficiency anemia, unspecified (principal); K31.89 Other diseases of stomach and duodenum; K29.50 Unspecified chronic gastritis without bleeding; K31.A11 Gastric intestinal metaplasia without dysplasia, involving the antrum; K21.9 Gastro-esophageal reflux disease without esophagitis; J44.9 Chronic obstructive pulmonary disease, unspecified; E78.5 Hyperlipidemia, unspecified; M19.90 Unspecified osteoarthritis, unspecified site; E07.9 Disorder of thyroid, unspecified; I73.9 Peripheral vascular disease, unspecified; F41.9 Anxiety disorder, unspecified; F31.9 Bipolar disorder, unspecified; F41.0 Panic disorder [episodic paroxysmal anxiety]; F17.210 Nicotine dependence, cigarettes, uncomplicated; Z86.73 Personal history of transient ischemic attack (TIA), and cerebral infarction without residual deficits; Z85.828 Personal history of other malignant neoplasm of skin; Z98.890 Other specified postprocedural states; Z79.899 Other long term (current) drug therapy; Z79.82 Long term (current) use of aspirin; Z98.41 Cataract extraction status, right eye; Z98.42 Cataract extraction status, left eye; Z96.642 Presence of left artificial hip joint; Z90.89 Acquired absence of other organs; Z88.8 Allergy status to other drugs, medicaments and biological substances; Z82.49 Family history of ischemic heart disease and other diseases of the circulatory system
CPT/HCPCS: 43239; J2704; J2003; 88305